=== PATIENT | male | born 1940 | race Caucasian/White ===

== ENCOUNTER 2020-04-17 15:52 | Inpatient (IN) | payer MEDICARE ==
--- NOTE | 2020-04-17 16:23 | ED ---
General Adult HPI - General Chief complaint: Eye Problems Stated complaint: vision problems Time Seen by Provider: 04/17/20 16:03 Source: patient, RN notes reviewed, old records reviewed Mode of arrival: ambulatory Limitations: physical limitation - History of Present Illness Initial comments: 79-year-old male presenting for evaluation of blurred vision, and difficulty finding words. He was seen by his eye doctor today in regards to the blurry vision and was sent to the emergency department for evaluation of suspected TIA. Patient had an episode which was 24 hours prior to evaluation today where he was unable to speak, he was unable to find words that he wanted to say. This lasted approximately one hour. He does complain of an occipital headache which is mild. He denies focal weakness or numbness. No facial droop noted. He states his vision has normalized at this point. He has history of hypertension and has been compliant with his medications. No antiplatelets, no anticoagulation. - Related Data Home Medications Medication Instructions Recorded Confirmed Metoprolol Succinate [Toprol XL] 25 mg PO DAILY 04/17/20 04/17/20 Plant Stanol Poornima [Cholest Off] 450 mg PO BID 04/17/20 04/17/20 Valsartan 80 mg PO HS 04/17/20 04/17/20 Valsartan [Diovan] 160 mg PO DAILY 04/17/20 04/17/20 amLODIPine [Norvasc] 10 mg PO DAILY 04/17/20 04/17/20 Allergies Allergy/AdvReac Type Severity Reaction Status Date / Time No Known Allergies Allergy Verified 04/17/20 18:20 Review of Systems ROS Statement: Those systems with pertinent positive or pertinent negative responses have been documented in the HPI. ROS Other: All systems not noted in ROS Statement are negative. Past Medical History Past Medical History: Coronary Artery Disease (CAD), Hyperlipidemia, Hypertension Additional Past Medical History / Comment(s): hearing problems History of Any Multi-Drug Resistant Organisms: None Reported Past Surgical History: Pacemaker Additional Past Surgical History / Comment(s): ear surgery Past Psychological History: No Psychological Hx Reported Smoking Status: Former smoker Past Alcohol Use History: None Reported Past Drug Use History: None Reported General Exam Limitations: physical limitation General appearance: alert, in no apparent distress Head exam: Present: atraumatic, normocephalic Eye exam: Present: normal appearance, PERRL ENT exam: Present: normal exam Neck exam: Present: normal inspection. Absent: tenderness, meningismus Respiratory exam: Present: normal lung sounds bilaterally. Absent: respiratory distress Cardiovascular Exam: Present: normal rhythm, bradycardia GI/Abdominal exam: Present: soft. Absent: distended, tenderness, guarding, rebound Extremities exam: Present: normal inspection, normal capillary refill. Absent: pedal edema Neurological exam: Present: alert, oriented X3, CN II-XII intact. Absent: motor sensory deficit Psychiatric exam: Present: normal affect, normal mood Skin exam: Present: warm, dry, intact. Absent: cyanosis, diaphoretic Course Vital Signs 04/17/20 04/17/20 15:54 18:00 Temperature 98.1 F Pulse Rate 52 L 62 Respiratory 20 16 Rate Blood Pressure 199/78 170/84 O2 Sat by Pulse 99 96 Oximetry Medical Decision Making - Medical Decision Making 79-year-old male presenting with an episode of blurry vision, and expressive aphasia. This occurred approximately 24 hours prior to arrival. Patient is not TPA candidate. He has an NIH is 0 at the time my evaluation. Head CT is performed which is negative for intracranial hemorrhage or mass effect. CT angiography is negative for acute occlusion, aneurysm or stenosis. Patient is g iven aspirin as he is not currently on any antiplatelet agent. He has normal CBC, normal CMP with exception of mild hypokalemia. I did discuss case with Dr. Amaya who will admit the patient. Neurology is placed on consult. - Lab Data Result diagrams: 04/17/20 16:28 04/17/20 16:28 Lab Results 04/17/20 04/17/20 04/17/20 Range/Units 16:28 16:28 16:28 WBC 8.5 (3.8-10.6) k/uL RBC 4.98 (4.30-5.90) m/uL Hgb 14.0 (13.0-17.5) gm/dL Hct 41.8 (39.0-53.0) % MCV 84.0 (80.0-100.0) fL MCH 28.2 (25.0-35.0) pg MCHC 33.5 (31.0-37.0) g/dL RDW 13.0 (11.5-15.5) % Plt Count 210 (150-450) k/uL Neutrophils % 57 % Lymphocytes % 33 % Monocytes % 5 % Eosinophils % 1 % Basophils % 1 % Neutrophils # 4.8 (1.3-7.7) k/uL Lymphocytes # 2.8 (1.0-4.8) k/uL Monocytes # 0.4 (0-1.0) k/uL Eosinophils # 0.1 (0-0.7) k/uL Basophils # 0.1 (0-0.2) k/uL PT 10.6 (9.0-12.0) sec INR 1.0 (<1.2) APTT 26.6 (22.0-30.0) sec Sodium 140 (137-145) mmol/L Potassium 3.3 L (3.5-5.1) mmol/L Chloride 103 (98-107) mmol/L Carbon Dioxide 28 (22-30) mmol/L Anion Gap 9 mmol/L BUN 16 (9-20) mg/dL Creatinine 0.93 (0.66-1.25) mg/dL Est GFR (CKD-EPI)AfAm 89 (>60 ml/min/1.73 sqM) Est GFR (CKD-EPI)NonAf 77 (>60 ml/min/1.73 sqM) Glucose 113 H (74-99) mg/dL Calcium 9.7 (8.4-10.2) mg/dL Total Bilirubin 0.7 (0.2-1.3) mg/dL AST 22 (17-59) U/L ALT 12 (4-49) U/L Alkaline Phosphatase 99 (38-126) U/L Troponin I (0.000-0.034) ng/mL Total Protein 7.0 (6.3-8.2) g/dL Albumin 4.3 (3.5-5.0) g/dL 04/17/20 Range/Units 16:28 WBC (3.8-10.6) k/uL RBC (4.30-5.90) m/uL Hgb (13.0-17.5) gm/dL Hct (39.0-53.0) % MCV (80.0-100.0) fL MCH (25.0-35.0) pg MCHC (31.0-37.0) g/dL RDW (11.5-15.5) % Plt Count (150-450) k/uL Neutrophils % % Lymphocytes % % Monocytes % % Eosinophils % % Basophils % % Neutrophils # (1.3-7.7) k/uL Lymphocytes # (1.0-4.8) k/uL Monocytes # (0-1.0) k/uL Eosinophils # (0-0.7) k/uL Basophils # (0-0.2) k/uL PT (9.0-12.0) sec INR (<1.2) APTT (22.0-30.0) sec Sodium (137-145) mmol/L Potassium (3.5-5.1) mmol/L Chloride (98-107) mmol/L Carbon Dioxide (22-30) mmol/L Anion Gap mmol/L BUN (9-20) mg/dL Creatinine (0.66-1.25) mg/dL Est GFR (CKD-EPI)AfAm (>60 ml/min/1.73 sqM) Est GFR (CKD-EPI)NonAf (>60 ml/min/1.73 sqM) Glucose (74-99) mg/dL Calcium (8.4-10.2) mg/dL Total Bilirubin (0.2-1.3) mg/dL AST (17-59) U/L ALT (4-49) U/L Alkaline Phosphatase (38-126) U/L Troponin I 0.016 (0.000-0.034) ng/mL Total Protein (6.3-8.2) g/dL Albumin (3.5-5.0) g/dL Critical Care Time Critical Care Time: Yes Total Critical Care Time: 35 Disposition Clinical Impression: TIA (transient ischemic attack) Disposition: ADMITTED IP TO THIS HOSP Condition: Stable Is patient prescribed a controlled substance at d/c from ED?: No Referrals: Rico Banks DO [Primary Care Provider] - 1-2 days Decision to Admit Reason: Admit from EC Decision Date: 04/17/20 Decision Time: 18:58
[2020-04-17 17:01] LABS: Basophils # (A) 0.1 k/uL (0-0.2); Basophils % (A) 1 %; Eosinophils # (A) 0.1 k/uL (0-0.7); Eosinophils % (A) 1 %; HCT 41.8 % (39.0-53.0); Lymphocytes # (A) 2.8 k/uL (1.0-4.8); Lymphocytes % (A) 33 %; MCH 28.2 pg (25.0-35.0); MCHC 33.5 g/dL (31.0-37.0); Mean Platelet Volume 8.6; Monocytes # (A) 0.4 k/uL (0-1.0); Monocytes % (A) 5 %; Neutrophils # (A) 4.8 k/uL (1.3-7.7); Neutrophils % (A) 57 %; Platelet Count 210 k/uL (150-450); RBC 4.98 m/uL (4.30-5.90); WBC 8.5 k/uL (3.8-10.6)
[2020-04-17 17:19] LABS: Partial Thromboplastin Time 26.6 sec (22.0-30.0); Prothrombin Time 10.6 sec (9.0-12.0)
[2020-04-17 17:23] LABS: Albumin 4.3 g/dL (3.5-5.0); Calcium 9.7 mg/dL (8.4-10.2); Potassium 3.3 mmol/L (3.5-5.1); Total Bilirubin 0.7 mg/dL (0.2-1.3)
--- NOTE | 2020-04-17 17:56 | CT ---
EXAMINATION: CT brain wo con DATE AND TIME: 04/17/2020 5:27 PM CLINICAL INDICATION: PHH; Neuro deficit, acute, stroke suspected TECHNIQUE: Standard departmental protocol.; DLP: 1063.8 mGycm COMPARISON: None. FINDINGS: The calvarium shows evidence of prior right temporal bone partial resection, with metallic scalp marie ce providing being hardening artifact. Calvarium negative for fracture. There is no intracranial hemorrhage. Bilateral parietal deep white matter fairly symmetric low-attenuation noted, entirely nonspecific. Th haven appear to be chronic, but chronicity cannot be confirmed without further characterization using M RI. There is no intracranial mass or mass effect. No definite new intra-axial or extra-axial attenuation defect. The paranasal sinuses, middle ear cavities, and mastoid sinus air cells are clear. The orbits are unremarkable. IMPRESSION: No definite acute CT process, with findings as discussed.
--- NOTE | 2020-04-17 18:28 | CT ---
EXAMINATION TYPE: CT angio head neck with contrast and with 3-D reconstruction renderings DATE OF EXAM: 04/17/2020 HISTORY: Headache. COMPARISON: Noncontrast CT 04/17/2020 at 5:[address] DLP: 552 mGycm. Automated Exposure Control for Dose Reduction was Utilized. TECHNIQUE: CTA scan of the neck is performed with IV Contrast, patient injected with 65 mL of Isovue 370, axial images are obtained, coronal and sagittal reformatted images are reviewed. Three-D recons tructed images are created on an independent workstation and reviewed. FINDINGS: CAROTID/VASCULAR STRUCTURES: Markedly prominent bilateral carotid tortuosity and scattered nonocclusi ve atherosclerotic narrowings present. No evidence of dissection. No hemodynamically significant sten oses. Mildly prominent bilateral vertebral artery tortuosity, with relatively mild generalized atherosclero tic changes. No evidence of dissection. No hemodynamically significant stenoses. INTRACRANIAL EXAMINATION: Mild scattered anterior and posterior circulation atherosclerotic changes. No filling defects. No hemodynamically significant stenoses. No cerebral aneurysm. Intra-axial and extra-axial contrast-enhancement pattern unremarkable. Other: 1.5 cm hypodense left thyroid nodule noted. IMPRESSION: 1. No acute CTA/CA process. 2. Incidental 1.5 cm left thyroid nodule.
[2020-04-17] MEDS ORDERED: ASPIRIN 325 MG TAB PO STA (18:30)
[2020-04-17] MEDS ORDERED: SODIUM CHLORIDE 0.9% 500 ML 500 ML IV ONE (18:30)
[2020-04-17] MEDS ORDERED: SODIUM CHLORIDE 0.9% 1,000 ML IV SCH (18:30)
--- NOTE | 2020-04-17 19:40 | XR ---
EXAMINATION: XR chest 2V DATE AND TIME: 04/17/2020 6:23 PM CLINICAL INDICATION: PHH; altered mental status TECHNIQUE: PA and lateral views COMPARISON: None FINDINGS: Cardiac pacemaker noted. The lungs are clear. The pleural spaces are negative. The cardiac silhouette is not enlarged. The remainder of the mediastinal silhouette is unremarkable. The skeletal structures and soft tissues are negative for acute findings. IMPRESSION: NO ACUTE PROCESS.
--- NOTE | 2020-04-17 21:45 | P.HPIM ---
History of Present Illness H&P Date: 04/17/20 Chief Complaint: Loss of speech and double vision History of presenting complaint: This is a pleasant 79-year-old patient of Dr. Rico Robb. Chronic stable medical conditions include hypertension, hyperlipidemia, hard of hearing, permanent pacemaker. Yesterday at 4 PM he was sitting in his backyard with his dog near the pond. There was squirrel running around. He suddenly noticed that he was not able to speak not describe a squirrel. His son happened to,,, white and then he found theword for him. Patient went inside the house He also noticed some double vision. The symptoms lasted for about 1-2 hours. Then completely resolved. 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 Was sent into the ER. Patient had no other focal symptoms. No change in , swallowing or any limb weakness. Blood pressure was running high in the ER. Review of systems: GEN.: None EYES: None HEENT: Decreased hearing NECK: None RESPIRATORY: None CARDIOVASCULAR: None GASTROINTESTINAL: None GENITOURINARY: None MUSCULOSKELETAL: None LYMPHATICS: None HEMATOLOGICAL: None PSYCHIATRY: None NEUROLOGICAL: As above] Past medical history to include: Hyperlipidemia, hypertension, hard of hearing, permanent pacemaker Social history: *Stopped Smoking over 40 years ago. No alcohol. . Retired. Family history: Reviewed, noncontributory to presentation Physical examination: VITAL SIGNS: 98.1, 52, 20, 199/78, 99% room air upon presentation GENERAL: BMI 25.8, laying in bed, comfortable. EYES: Pupils equal. Conjunctiva normal. HEENT: External appearance of nose and ears normal, oral cavity grossly normal. NECK: JVD not raised; masses not palpable. HEART: First and second heart sounds are normal; no edema. LUNGS: Respiratory rate normal; clear to auscultation. ABDOMEN: Soft, nontender, liver spleen not palpable, no masses palpable. PSYCH: Alert and oriented x3; mood and affect normal. NEUROLOGICAL: Cranial nerves grossly intact; no facial asymmetry, power and sensation grossly intact. LYMPHATICS: No lymph nodes palpable in the axilla and neck INVESTIGATIONS, reviewed in the clinical context: White count 8.5 hemoglobin 14 platelets 210 potassium 3.3 creatinine 0.93 EKG tracing personally reviewed by me-atrial paced rhythm, right bundle-branch block pattern Chest x-ray film personally reviewed by me-derek womack, no infiltrates CT angiogram the head and neck with contrast-no CTA/C a process Computed tomography scan of the brain unremarkable Assessment: -TIA with patient presenting with about 2 hours of unable to find words and some double vision yesterday that completely resolved. -Hypertensive urgency we'll follow blood pressure closely. -Hyperlipidemia -Permanent pacemaker -Hard of hearing Plan: We will repeat a computed tomography scan of the brain in the morning. Because of the pacemaker patient may not be ordered to have an MRI. Home medications to be resumed. Audio and aspirin. We'll add Plavix. Add Lipitor. Care was discussed with the patient question also. DVT prophylaxis. Past Medical History Past Medical History: Coronary Artery Disease (CAD), Hyperlipidemia, Hypertension Additional Past Medical History / Comment(s): hearing problems History of Any Multi-Drug Resistant Organisms: None Reported Past Surgical History: Pacemaker Additional Past Surgical History / Comment(s): ear surgery Past Anesthesia/Blood Transfusion Reactions: No Reported Reaction Type of Cardiac Device: Permanent Pacemaker Device Placement Date:: 2018 Past Psychological History: No Psychological Hx Reported Smoking Status: Former smoker Past Alcohol Use History: None Reported Past Drug Use History: None Reported Medications and Allergies Home Medications Medication Instructions Recorded Confirmed Type Metoprolol Succinate [Toprol XL] 25 mg PO DAILY 04/17/20 04/17/20 History Plant Stanol Opornima [Cholest Off] 450 mg PO BID 04/17/20 04/17/20 History Valsartan 80 mg PO HS 04/17/20 04/17/20 History Valsartan [Diovan] 160 mg PO DAILY 04/17/20 04/17/20 History amLODIPine [Norvasc] 10 mg PO DAILY 04/17/20 04/17/20 History Allergies Allergy/AdvReac Type Severity Reaction Status Date / Time No Known Allergies Allergy Verified 04/17/20 18:20 Physical Exam Vitals: Vital Signs Temp Pulse Pulse Resp BP BP Pulse Ox 04/17/20 21:00 97.9 F 63 18 205/86 95 04/17/20 20:56 97.9 F 63 18 205/86 95 04/17/20 20:27 98.3 F 52 L 16 170/87 98 04/17/20 19:50 50 L 16 174/87 04/17/20 19:34 50 L 16 183/82 97 04/17/20 19:11 97.9 F 63 18 205/86 97 04/17/20 18:00 62 16 170/84 96 04/17/20 15:54 98.1 F 52 L 20 199/78 99 Intake and Output 04/17/20 04/17/20 04/17/20 06:59 14:59 22:59 Output Total 900 Balance -900 Output: Urine 900 Other: Voiding Method Urinal # Voids 2 Weight 81.647 kg Results CBC & Chem 7: 04/17/20 16:28 04/17/20 16:28 Labs: Abnormal Lab Results - Last 24 Hours (Table) 04/17/20 Range/Units 16:28 Potassium 3.3 L (3.5-5.1) mmol/L Glucose 113 H (74-99) mg/dL Thrombosis Risk Factor Assmnt - Choose All That Apply Any of the Below Risk Factors Present?: No Other Risk Factors: Yes Each Risk Factor Represents 3 Points: Age 75 years or older Other congenital or acquired thrombophilia - If yes, enter type in comment: No Thrombosis Risk Factor Assessment Total Risk Factor Score: 3 Thrombosis Risk Factor Assessment Level: Moderate Risk
[2020-04-17] MEDS ORDERED: MAGNESIUM HYDROXIDE 2,400 MG/10 ML CUP PO PRN (21:47)
[2020-04-17] MEDS ORDERED: MAG HYDROX/AL HYDROX/SIMETH 30 ML CUP PO PRN (21:47)
[2020-04-17] MEDS ORDERED: MELATONIN 3 MG TABLET PO PRN (21:47)
[2020-04-17] MEDS ORDERED: TEMAZEPAM 15 MG CAP PO PRN (21:47)
[2020-04-17] MEDS ORDERED: ALPRAZolam 0.25 MG TAB PO PRN (21:47)
[2020-04-17] MEDS ORDERED: NALOXONE 0.4 MG/ML 1 ML VIAL IV PRN (21:47)
[2020-04-17] MEDS ORDERED: CALCIUM CARBONATE 500 MG CHEWABLE PO PRN (21:47)
[2020-04-17] MEDS ORDERED: ONDANSETRON 4 MG/2 ML VIAL IVP PRN (21:47)
[2020-04-17] MEDS ORDERED: LACTULOSE 20 GM/30 ML CUP PO PRN (21:47)
[2020-04-17] MEDS: ATORVASTATIN 40 MG TAB PO SCH (21:55)
[2020-04-17] MEDS: VALSARTAN 80 MG TAB PO SCH (21:56)
[2020-04-17] MEDS: ENOXAPARIN 40 MG/0.4 ML SYRINGE SQ SCH (21:56)
[2020-04-17] MEDS: PRAZOSIN 1 MG CAP PO SCH (22:05)
[2020-04-18 06:13] LABS: Cholesterol 221 mg/dL (<200); HDL Cholesterol 31 mg/dL (40-60); LDL Cholesterol,Calculated 145 mg/dL (0-99); Triglycerides 227 mg/dL (<150)
[2020-04-18] MEDS: ENOXAPARIN 40 MG/0.4 ML SYRINGE SQ SCH (08:44)
[2020-04-18] MEDS: PRAZOSIN 1 MG CAP PO SCH ×3 (08:44→22:51)
[2020-04-18] MEDS: amLODIPine 10 MG TAB PO SCH (08:44)
[2020-04-18] MEDS: VALSARTAN 80 MG TAB PO SCH ×2 (08:44→20:50)
[2020-04-18] MEDS: METOPROLOL SUCCINATE (ER) 25 MG TAB.ER.24H PO SCH (08:45)
[2020-04-18] MEDS: ASPIRIN 325 MG TAB PO SCH (08:45)
[2020-04-18] MEDS ORDERED: [UNRECOGNIZED DRUG - REMARK] PO SCH (09:00)
[2020-04-18 11:03] LABS: Glucose,Whole Blood 212 mg/dL (75-99)
--- NOTE | 2020-04-18 11:19 | CT ---
EXAMINATION TYPE: CT brain wo con DATE OF EXAM: 04/18/2020 COMPARISON: CT brain 04/17/2020 HISTORY: aphasia, confusion CT DLP: 1017.6 mGycm Automated exposure control for dose reduction was used. Helical imaging through the brain. FINDINGS: Cerebral vascular calcifications are present. Calvarium is stable, there is extrinsic metallic densit y with leads coursing towards the temporal bone, postop changes to the temporal bone as on prior exam . Cortical atrophy is again seen. Periventricular white matter shows patchy low attenuation. No hemor rhage or hydrocephalus. IMPRESSION: STABLE FINDINGS LIKELY REPRESENT CHRONIC SMALL VESSEL ISCHEMIC CHANGE, POSTOP CHANGE.
[2020-04-18] MEDS ORDERED: HEPARIN SODIUM,PORCINE 5,000 UNIT/ML 1 ML VIAL IV ONE (11:27)
[2020-04-18] MEDS ORDERED: HEPARIN SODIUM,PORCINE 5,000 UNIT/ML 1 ML VIAL IV PRN (11:27)
[2020-04-18 11:36] LABS: Basophils % (A) 0 %; Eosinophils % (A) 0 %; HGB 14.4 gm/dL (13.0-17.5); Lymphocytes # (A) 1.6 k/uL (1.0-4.8); Lymphocytes % (A) 22 %; MCH 29.4 pg (25.0-35.0); MCHC 35.1 g/dL (31.0-37.0); MCV 83.6 fL (80.0-100.0); Mean Platelet Volume 8.5; Monocytes # (A) 0.4 k/uL (0-1.0); Monocytes % (A) 6 %; Neutrophils # (A) 5.1 k/uL (1.3-7.7); Neutrophils % (A) 70 %; Platelet Count 189 k/uL (150-450); RDW 13.5 % (11.5-15.5); WBC 7.3 k/uL (3.8-10.6)
[2020-04-18 11:42] LABS: Potassium 3.3 mmol/L (3.5-5.1)
[2020-04-18 11:44] LABS: Calcium 9.4 mg/dL (8.4-10.2); Total Bilirubin 0.6 mg/dL (0.2-1.3); Total Protein 6.5 g/dL (6.3-8.2)
--- NOTE | 2020-04-18 11:56 | P.CNNES ---
History of Present Illness Consult date: 04/18/20 Requesting physician: Huseyin Sanchez Reason for Consult: TIA History of Present Illness: Patient is a 79-year-old male, who came to the hospital yesterday at around 4 PM for possible TIA. Patient had presented with blurred vision and difficulty finding words. Patient was seen by an eye doctor regarding blurred vision and was sent to the ER for evaluation of suspected TIA. Patient had an episode which was 24 hours prior to evaluation today, where he was unable to speak, he was unable to find words that he wanted to say. This lasted approximately 1 hour. He does complain of an occipital headache in the ER which was mild. He has no focal weakness or numbness. No facial droop. Patient had normalized. Patient has history of hypertension, compliant with medications. He does not take any antiplatelets or anticoagulants at home. Patient's vital signs on arrival was blood pressure 199/78, pulse rate 52, temperature 98.1 CT head showed no definite acute CT process. Bilateral parietal deep fight mat ter fairly symmetric low attenuation noted, entirely nonspecific. These appear to be chronic, but chronicity cannot be confirmed without further characterization using MRI. No mass effect. CTA of head and neck was negative. Incidental 1.5 cm left thyroid node he would. EKG shows atrial paced rhythm with prolonged AV conduction. Left axis deviation. Chest x-ray showed no acute process. CBC, PT/PTT, Chem-20 is normal. Total cholesterol 221, LDL 145, HDL 31 and triglycerides 227. Patient's NIH stroke scale was reported at 0. Patient was given aspirin in the ER. Patient was admitted to the 3 [address]. floor, room 332. According to nursing report, patient was perfectly fine overnight. Patient was normally communicative. Early this morning he was fine. At 10:15 AM, patient was noted to have acute mental status change, was completely disoriented, not able to answer questions. I came in to see the patient, and noticed patient had significant expressive aphasia. Patient able to name some objects, whereas not able to name other objects. Patient's NIH stroke scale was 6. Review of Systems Patient denies any headache. He is very hard of hearing. Denies any chest pain shortness of breath, wheezing or cough. Denies abdominal pain nausea vomiting. Patient had some blurred vision. Past Medical History Past Medical History: Coronary Artery Disease (CAD), Hyperlipidemia, Hypertension Additional Past Medical History / Comment(s): hearing problems History of Any Multi-Drug Resistant Organisms: None Reported Past Surgical History: Pacemaker Additional Past Surgical History / Comment(s): ear surgery Past Anesthesia/Blood Transfusion Reactions: No Reported Reaction Type of Cardiac Device: Permanent Pacemaker Device Placement Date:: 2018 Past Psychological History: No Psychological Hx Reported Smoking Status: Former smoker Past Alcohol Use History: None Reported Past Drug Use History: None Reported Medications and Allergies Home Medications Medication Instructions Recorded Confirmed Type Metoprolol Succinate [Toprol XL] 25 mg PO DAILY 04/17/20 04/17/20 History Plant Stanol Poornima [Cholest Off] 450 mg PO BID 04/17/20 04/17/20 History Valsartan 80 mg PO HS 04/17/20 04/17/20 History Valsartan [Diovan] 160 mg PO DAILY 04/17/20 04/17/20 History amLODIPine [Norvasc] 10 mg PO DAILY 04/17/20 04/17/20 History Allergies Allergy/AdvReac Type Severity Reaction Status Date / Time No Known Allergies Allergy Verified 04/17/20 18:20 Physical Examination - Vital Signs Vital Signs: Vital Signs Temp Pulse Pulse Resp BP BP Pulse Ox 04/18/20 09:12 97 04/18/20 08:20 97.8 F 62 16 142/75 98 04/18/20 05:54 97.5 F L 83 18 144/66 94 L 04/18/20 03:55 97.8 F 80 18 140/65 95 04/18/20 02:55 83 18 04/18/20 02:50 97.9 F 83 18 143/64 94 L 04/18/20 01:56 97.8 F 89 18 125/64 96 04/17/20 23:49 98.4 F 72 18 123/62 95 04/17/20 21:56 97.9 F 63 18 205/86 95 04/17/20 21:48 195/85 04/17/20 21:00 97.9 F 63 18 205/86 95 04/17/20 20:56 97.9 F 63 18 205/86 95 04/17/20 20:27 98.3 F 52 L 16 170/87 98 04/17/20 19:50 50 L 16 174/87 04/17/20 19:34 50 L 16 183/82 97 04/17/20 19:11 97.9 F 63 18 205/86 97 04/17/20 18:00 62 16 170/84 96 04/17/20 15:54 98.1 F 52 L 20 199/78 99 Intake and Output 04/17/20 04/18/20 04/18/20 22:59 06:59 14:59 Output Total 900 1200 Balance -900 -1200 Output: Urine 900 1200 Other: Voiding Method Urinal Urinal # Voids 2 1 Weight 81.647 kg On examination patient is an elderly male, in no acute cardiopulmonary distress. He is alert and awake. Patient was not able to answer questions, was having significant expressive aphasia, difficulty repeating. Patient was not able to name the thumb, ear or earlobe, eyeglasses, although able to name a wristwatch. He had difficulty repeating longer sentences. Patient has some paraphasic errors noted. Comprehension was affected. Mild slurring. On craft worker nial nerve examination pupils are round and reacting to light, visual crowder revealed homonymous right lower quadrantanopia. Face is symmetric, tongue protrudes the midline. Palatal elevation and sensation normal hearing significant decreased, shoulder shrug normal. On muscle strength testing there is no pronator drift and the strength is normal in arms and legs distally and proximally. Reflexes are 1+ and plantars downgoing. Sensory to touch difficult to assess for neglect, as patient was not understanding due to comprehension issue and also related to his hearing issue. No ataxia for [id number] testing. Tone and bulk of muscles normal gait was deferred. Patient was sent to computed tomography scan of the head. After he returned back from computed tomography scan, patient was able to speak clearly, expressive speech was much improved, able to speak sentences, can name, repeat. Patient able to answer appropriately. Patient only had residual homonymous right lower quadrantanopia Results - Laboratory Findings CBC and BMP: 04/18/20 11:14 04/18/20 11:14 Abnormal Lab Findings: Abnormal Labs 04/17/20 04/18/20 04/18/20 16:28 05:32 11:00 Potassium 3.3 L Glucose 113 H POC Glucose (mg/dL) 212 H Triglycerides 227 H Cholesterol 221 H LDL Cholesterol, Calc 145 H HDL Cholesterol 31 L Assessment and Plan Assessment: * Recurrent, crescendo TIAs. 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 * Patient has presented with acute to subacute CVA with right sided visual field deficits mainly involving the lower quadrant. Patient has developed superimposed recurrent TIAs. Rule out cardioembolic source. Patient had 2-D echo performed, results pending. * We will suggest a cardiology consultation, to consider KAY to rule out embolic source. * Because of recurrent TIAs,/recent CVA, we will start patient on heparin per A. fib protocol. 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 * Telemetry monitoring * PT OT speech therapy. * Continue aspirin 325 mg daily. * Hemoglobin A1c. * Neurology coverage not available on the weekend. Please perfect serve me if any questions over the weekend.
[2020-04-18 11:59] LABS: INR 1.1 (<1.2); Partial Thromboplastin Time 28.6 sec (22.0-30.0); Prothrombin Time 11.1 sec (9.0-12.0)
[2020-04-18] MEDS: HEPARIN SOD,PORK IN 0.45% NACL 25,000 UNIT in 0.45% NACL 1 250ML.BAG IV SCH (12:24)
--- NOTE | 2020-04-18 13:00 | ECHOF ---
Referral Reason:Thrombus MEASUREMENTS -------- HEIGHT: 177.8 cm WEIGHT: 81.6 kg BP: 144/66 RVIDd: 3.7 cm (< 3.3) IVSd: 2.0 cm (0.6 - 1.1) LVIDd: 3.5 cm (3.9 - 5.3) LVPWd: 1.6 cm (0.6 - 1.1) IVSs: 2.5 cm LVIDs: 2.6 cm LVPWs: 1.8 cm LAESV Index (A-L): 26.07 ml/m Ao Diam: 4.2 cm (2.0 - 3.7) AV Cusp: 1.8 cm (1.5 - 2.6) RAP: 5.00 mmHg RVSP: 16.57 mmHg FINDINGS -------- This was a technically adequate study. The left ventricular size is normal. There is severe concentric left ventricular hypertrophy. Ove rall left ventricular systolic function is low-normal with, an EF between 50 - 55 %. Septal wall mo tion is delayed, and consistent with ventricular pacing. The right ventricle is normal in size. Normal LA size by volume 22+/-6 ml/m2. The right atrial size is normal. Electronic pacemaker lead seen in the right atrial cavity. Interatrial and interventricular septum intact. There is no evidence of aortic regurgitation. There is no evidence of aortic stenosis. No mitral regurgitation. Mild tricuspid regurgitation present. There is no evidence of pulmonary hypertension. The right v entricular systolic pressure, as measured by Doppler, is 16.57mmHg. There is no pulmonic regurgitation present. The aortic root size is normal. IVC Not well visulized. There is no pericardial effusion. CONCLUSIONS -------- 1. Mild tricuspid regurgitation present. VISCOSITY INSPECTOR: Bibi Wheeler [facility]
--- NOTE | 2020-04-18 20:13 | P.PN ---
Progress Note - Text Progress Note Date: 04/18/20 Chief Complaint: Loss of speech and double vision History of presenting complaint: This is a pleasant 79-year-old patient of Dr. Rico Robb. Chronic stable medical conditions include hypertension, hyperlipidemia, hard of hearing, permanent pacemaker. Yesterday at 4 PM he was sitting in his backyard with his dog near the pond. There was squirrel running around. He suddenly noticed that he was not able to speak not describe a squirrel. His son happened to,,, white and then he found theword for him. Patient went inside the house He also noticed some double vision. The symptoms lasted for about 1-2 hours. Then completely resolved. 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 Was sent into the ER. Patient had no other focal symptoms. No change in , swallowing or any limb weakness. Blood pressure was running high in the ER. Today -earlier, patient again had trouble with speech. Was sent for repeat computed tomography scan after was called. Repeat computed tomography scan negative. Moved to the telemetry floor. He wanted by neurology. [place]. Homonymous right lower quadrant quadrantanopsia. Speech subsequently improved. Though some trouble finding words. Review of systems: Was done for constitutional, cardiovascular, GI, pulmonary. Neurology relevant finding as above Active Medications Acetaminophen (Acetaminophen Tab 325 Mg Tab) 650 mg PO Q6HR PRN PRN Reason: Mild Pain or Fever > 100.5 Al Hydroxide/Mg Hydroxide (Mag Hydrox/Al Hydrox/Simeth 30 Ml Cup) 15 ml PO Q6HR PRN PRN Reason: Indigestion Alprazolam (Alprazolam 0.25 Mg Tab) 0.25 mg PO Q6HR PRN PRN Reason: Anxiety Amlodipine Besylate (Amlodipine 10 Mg Tab) 10 mg PO DAILY [facility] Last Admin: 04/18/20 08:44 Dose: 10 mg Documented by: Aspirin (Aspirin 325 Mg Tab) 325 mg PO DAILY [facility] Last Admin: 04/18/20 08:45 Dose: 325 mg Documented by: Atorvastatin Calcium (Atorvastatin 40 Mg Tab) 40 mg PO HS [facility] Last Admin: 04/17/20 21:55 Dose: 40 mg Documented by: Calcium Carbonate/Glycine (Calcium Carbonate 500 Mg Chewable) 1,000 mg PO Q4HR PRN PRN Reason: Dyspepsia Heparin Sodium (Porcine) (Heparin Sodium,Porcine 5,000 Unit/Ml 1 Ml Vial) 0 unit IV PER PROTOCOL PRN; Protocol PRN Reason: Low PTT Heparin Sodium/Sodium Chloride (25,000 unit/ Sodium Chloride) 250 mls @ 9.798 mls/hr IV .Q24H [facility]; Protocol Last Admin: 04/18/20 12:24 Dose: 12 units/kg/hr, 9.798 mls/hr Documented by: Lactulose (Lactulose 20 Gm/30 Ml Cup) 20 gm PO DAILY PRN PRN Reason: Constipation Magnesium Hydroxide (Magnesium Hydroxide 2,400 Mg/10 Ml Cup) 2,400 mg PO DAILY PRN PRN Reason: Constipation Melatonin (Melatonin 3 Mg Tablet) 3 mg PO HS PRN PRN Reason: Insomnia Metoprolol Succinate (Metoprolol Succinate (Er) 25 Mg Tab.Er.24h) 25 mg PO DAILY [facility] Last Admin: 04/18/20 08:45 Dose: 25 mg Documented by: Naloxone HCl (Naloxone 0.4 Mg/Ml 1 Ml Vial) 0.2 mg IV Q2M PRN PRN Reason: Opioid Reversal Ondansetron HCl (Ondansetron 4 Mg/2 Ml Vial) 4 mg IVP Q8HR PRN PRN Reason: Nausea And Vomiting Prazosin HCl (Prazosin 1 Mg Cap) 2 mg PO TID [facility] Last Admin: 04/18/20 19:00 Dose: 2 mg Documented by: Temazepam (Temazepam 15 Mg Cap) 15 mg PO HS PRN PRN Reason: Insomnia Valsartan (Valsartan 80 Mg Tab) 160 mg PO DAILY [facility] Last Admin: 04/18/20 08:44 Dose: 160 mg Documented by: Valsartan (Valsartan 80 Mg Tab) 80 mg PO HS [facility] Last Admin: 04/17/20 21:56 Dose: 80 mg Documented by: Physical examination: VITAL SIGNS: 97.8, 62, 16, 142/75, 98% room air GENERAL: Sitting up in bed,, comfortable. EYES: Pupils equal. Conjunctiva normal. HEENT: External appearance of nose and ears normal, oral cavity grossly normal. NECK: JVD not raised; masses not palpable. HEART: First and second heart sounds are normal; no edema. LUNGS: Respiratory rate normal; clear to auscultation. ABDOMEN: Soft, nontender, liver spleen not palpable, no masses palpable. PSYCH: Alert and oriented x3; mood and affect normal. NEUROLOGICAL: Cranial nerves grossly intact; no facial asymmetry, a bit slow and finding words. INVESTIGATIONS, reviewed in the clinical context: Potassium 3.3, glucose 204, LDL 145 Computed tomography scan of brain-April 18-no new findings 2-D echocardiogram-severe concentric LVH, EF 50-55%, Admission testing White count 8.5 hemoglobin 14 platelets 210 potassium 3.3 creatinine 0.93 EKG tracing personally reviewed by me-atrial paced rhythm, right bundle-branch block pattern Chest x-ray film personally reviewed by me-derek womack, no infiltrates CT angiogram the head and neck with contrast-no CTA/C a process Computed tomography scan of the brain unremarkable Assessment: -Recurrent TIA with patient presenting with about 2 hours of unable to find words and some double vision yesterday that completely resolved. This morning again patient had similar symptoms. Per neurology patient also had home and it was right lower quadrantonopia -Hypertensive urgency we'll follow blood pressure closely. -Hyperlipidemia -Permanent pacemaker -Hard of hearing Plan: As per neurology proceed with KAY. Cardiology consult for the same. Patient started IV heparin per neurology. Discussed with the patient and .
[2020-04-18] MEDS: ATORVASTATIN 40 MG TAB PO SCH (20:50)
[2020-04-18] MEDS ORDERED: POTASSIUM CHLORIDE ER 20 MEQ TAB.ER PO STA (22:08)
[2020-04-19] MEDS ORDERED: HALOPERIDOL LACTATE 5 MG/ML 1 ML VIAL IM STA (01:07)
[2020-04-19 07:17] LABS: Basophils % (A) 0 %; Eosinophils % (A) 0 %; HCT 40.9 % (39.0-53.0); HGB 14.4 gm/dL (13.0-17.5); Lymphocytes % (A) 21 %; MCH 29.4 pg (25.0-35.0); MCHC 35.2 g/dL (31.0-37.0); MCV 83.5 fL (80.0-100.0); Mean Platelet Volume 8.8; Monocytes # (A) 0.5 k/uL (0-1.0); Monocytes % (A) 5 %; Neutrophils # (A) 6.8 k/uL (1.3-7.7); Neutrophils % (A) 72 %; Platelet Count 205 k/uL (150-450); RDW 13.5 % (11.5-15.5); WBC 9.4 k/uL (3.8-10.6)
[2020-04-19 07:26] LABS: Calcium 9.1 mg/dL (8.4-10.2); Potassium 3.3 mmol/L (3.5-5.1)
[2020-04-19] MEDS: amLODIPine 10 MG TAB PO SCH (08:29)
[2020-04-19] MEDS: METOPROLOL SUCCINATE (ER) 25 MG TAB.ER.24H PO SCH (08:30)
[2020-04-19] MEDS: ASPIRIN 325 MG TAB PO SCH (08:30)
[2020-04-19] MEDS: VALSARTAN 80 MG TAB PO SCH ×2 (08:32→22:29)
[2020-04-19] MEDS ORDERED: HALOPERIDOL LACTATE 5 MG/ML 1 ML VIAL ONE (08:42)
[2020-04-19] MEDS ORDERED: HALOPERIDOL LACTATE 5 MG/ML 1 ML VIAL IM PRN (08:45)
[2020-04-19] MEDS ORDERED: QUEtiapine 25 MG TAB PO SCH (10:15)
--- NOTE | 2020-04-19 11:44 | P.PN ---
Subjective This is a pleasant 79-year-old patient of Dr. Rico Robb. Chronic stable medical conditions include hypertension, hyperlipidemia, hard of hearing, permanent pacemaker. Yesterday at 4 PM he was sitting in his backyard with his dog near the pond. There was squirrel running around. He suddenly noticed that he was not able to speak not describe a squirrel. His son happened to,,, white and then he found theword for him. Patient went inside the house He also noticed some double vision. The symptoms lasted for about 1-2 hours. Then completely resolved. 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 Was sent into the ER. Patient had no other focal symptoms. No change in , swallowing or any limb weakness. Blood pressure was running high in the ER. Today -earlier, patient again had trouble with speech. Was sent for repeat computed tomography scan after was called. Repeat computed tomography scan negative. Moved to the telemetry floor. He wanted by neurology. [place]. Homonymous right lower quadrant quadrantanopsia. Speech subsequently improved. Though some trouble finding words. 04/19/2020 This is a pleasant 79 years old male presenting with double vision and slurred speech for about one to 2 hours, CT of the brain was suspicious for bilateral parietal CVA, with looks old per neurology service however need to rule out embolic source, echocardiogram is ordered and KAY is recommended by neurologist and cardiology team was consulted. Also patient was started on heparin drip per neurology service. Continue with aspirin 325 mg per neurologist. Echocardiogram showing ejection fraction 55% with septal wall motion is delayed consistent with ventricular pacing. this morning patient was agitated and he has to be given Haldol 2 mg IV with partial improvement. Seroquel is added and Xanax was stopped, he received 1 small dose of Xanax this morning which might contribute to his worsening confusion. Currently he is sitting on the bed side, common, no blurred vision or speech difficulty, he moves all extremities equally. This is slightly confused especially to place. The at bedside. Discussed plan of care with patient and and they're agreeable. CBC and BMP is unremarkable. Objective - Vital Signs Vital signs: Vital Signs Temp 98.9 F 04/19/20 08:00 Pulse 84 04/19/20 08:00 Resp 17 04/19/20 08:00 BP 144/67 04/19/20 08:00 Pulse Ox 98 04/19/20 08:00 Intake & Output 04/18/20 04/19/20 04/19/20 18:59 06:59 18:59 Intake Total 240 180 Balance 240 180 Weight 77 kg Intake: Oral 240 180 Other: Voiding Method Urinal Urinal # Voids 1 - Labs CBC & Chem 7: 04/19/20 06:49 04/19/20 06:49 Labs: Abnormal Lab Results - Last 24 Hours (Table) 04/18/20 04/18/20 04/19/20 Range/Units 11:14 18:13 06:49 APTT 53.3 H 39.1 H (22.0-30.0) sec Potassium 3.3 L (3.5-5.1) mmol/L Glucose 204 H (74-99) mg/dL 04/19/20 Range/Units 06:49 APTT (22.0-30.0) sec Potassium 3.3 L (3.5-5.1) mmol/L Glucose 144 H (74-99) mg/dL Assessment and Plan Assessment: -Acute/subacute suture of with superimposed Recurrent TIA . Per neurology patient also had home and it was right lower quadrantonopia -Hypertensive urgency we'll follow blood pressure closely. Blood pressure is better controlled with some permissive hypertension -agitation and encephalopathy, combined secondary to toxic effect from medication for example benzodiazepine as well as above illnesses -Hyperlipidemia -Permanent pacemaker -Hard of hearing
--- NOTE | 2020-04-19 13:51 | P.CRDCN ---
History of Present Illness Consult date: 04/19/20 Requesting physician: Ok Amaya Reason for Consult (text): KAY History of present illness: History of present illness: This is an 79-year-old male with past medical history of hypertension, hyperlipidemia, permanent pacemaker implantation, remote history of tobacco use. He presented to the hospital for possible TIA. CT head showed no definite acute CT process. CTA of head and neck was negative. EKG shows atrial paced rhythm with prolonged AV conduction. Left axis deviation. Chest x-ray showed no acute process. Total cholesterol 221, LDL 145, HDL 31 and triglycerides 227. Patient has been ruled in for recurrent, crescendo TIAs and neurology has requested KAY to rule out embolic source. Last evening, patient developed significant confusion and required Haldol. Patient is seen today in his room and is confused, shortly after interviewing patient, Mr. maria was called. Transthoracic echocardiogram reveals EF of 50-55% with severe concentric left ventricular hypertrophy, mild tricuspid regurgitation, no aortic stenosis, no pulmonary hypertension. Review Of Systems: Unable to obtain due to patient's mental status Physical examination: Gen: This is a an 79-year-old male. Patient is found ambulating in his room, confused. VS: Afebrile, heart rate 84, blood pressure 1 4467, pulse ox 98% on room air. HEENT: Head is atraumatic, normocephalic. Pupils equal, round. Sclerae is anict april. NECK: Supple. No JVD. No lymphadenopathy. No thyromegaly. LUNGS: Clear to auscultation. No wheezes or rhonchi. No intercostal retractions. HEART: Regular rate and rhythm. No murmur. ABDOMEN: Soft. Bowel sounds are present. No masses. No tenderness. EXTREMITIES: No pedal edema. No calf tenderness. NEUROLOGICAL: Patient is awake, alert and oriented x3. Cranial nerves 2 through 12 are grossly intact. Assessment: Recurrent, cresendo TIAs Hypertension Hyperlipidemia Permanent pacemaker implantation Plan: At this time, patient would not be able to cooperate for KAY May reassess patient's mental status tomorrow Further recommendations to follow based upon clinical course Thank you kindly for this consultation. Nurse practitioner note has been reviewed, I agree with documented findings and plan of care. Patient was seen and examined. Past Medical History Past Medical History: Coronary Artery Disease (CAD), Hyperlipidemia, Hypertension Additional Past Medical History / Comment(s): hearing problems History of Any Multi-Drug Resistant Organisms: None Reported Past Surgical History: Pacemaker Additional Past Surgical History / Comment(s): ear surgery Past Anesthesia/Blood Transfusion Reactions: No Reported Reaction Type of Cardiac Device: Permanent Pacemaker Device Placement Date:: 2018 Past Psychological History: No Psychological Hx Reported Smoking Status: Former smoker Past Alcohol Use History: None Reported Past Drug Use History: None Reported Medications and Allergies Home Medications Medication Instructions Recorded Confirmed Type Metoprolol Succinate [Toprol XL] 25 mg PO DAILY 04/17/20 04/17/20 History Plant Stanol Poornima [Cholest Off] 450 mg PO BID 04/17/20 04/17/20 History Valsartan 80 mg PO HS 04/17/20 04/17/20 History Valsartan [Diovan] 160 mg PO DAILY 04/17/20 04/17/20 History amLODIPine [Norvasc] 10 mg PO DAILY 04/17/20 04/17/20 History Allergies Allergy/AdvReac Type Severity Reaction Status Date / Time No Known Allergies Allergy Verified 04/17/20 18:20 Physical Exam Vitals: Vital Signs Temp Pulse Resp BP Pulse Ox 04/19/20 04:00 86 18 156/70 95 04/19/20 00:00 98.8 F 79 16 124/70 94 L 04/18/20 20:00 98.9 F 76 18 158/74 94 L 04/18/20 16:00 98.5 F 64 18 185/78 96 04/18/20 09:12 97 04/18/20 08:20 97.8 F 62 16 142/75 98 Intake and Output 04/18/20 04/19/20 04/19/20 22:59 06:59 14:59 Other: Voiding Method Urinal Urinal # Voids 1 Weight 77 kg Results 04/19/20 06:49 04/19/20 06:49 Cardiac Enzymes 04/18/20 04/18/20 Range/Units 11:14 11:14 AST 21 (17-59) U/L Troponin I 0.019 (0.000-0.034) ng/mL Coagulation 04/18/20 04/18/20 04/19/20 Range/Units 11:14 18:13 06:49 PT 11.1 (9.0-12.0) sec APTT 28.6 53.3 H 39.1 H (22.0-30.0) sec CBC 04/18/20 04/19/20 Range/Units 11:14 06:49 WBC 7.3 9.4 (3.8-10.6) k/uL RBC 4.90 4.90 (4.30-5.90) m/uL Hgb 14.4 14.4 (13.0-17.5) gm/dL Hct 41.0 40.9 (39.0-53.0) % Plt Count 189 205 (150-450) k/uL Comprehensive Metabolic Panel 04/18/20 04/19/20 Range/Units 11:14 06:49 Sodium 139 140 (137-145) mmol/L Potassium 3.3 L 3.3 L (3.5-5.1) mmol/L Chloride 103 107 (98-107) mmol/L Carbon Dioxide 27 27 (22-30) mmol/L BUN 13 16 (9-20) mg/dL Creatinine 0.99 0.94 (0.66-1.25) mg/dL Glucose 204 H 144 H (74-99) mg/dL Calcium 9.4 9.1 (8.4-10.2) mg/dL AST 21 (17-59) U/L ALT 12 (4-49) U/L Alkaline Phosphatase 93 (38-126) U/L Total Protein 6.5 (6.3-8.2) g/dL Albumin 4.0 (3.5-5.0) g/dL Current Medications Generic Name Dose Route Start Last Admin Trade Name Freq PRN Reason Stop Dose Admin Acetaminophen 650 mg 04/17/20 21:47 Acetaminophen Tab 325 Mg Tab PO Q6HR PRN Mild Pain or Fever > 100.5 Al Hydroxide/Mg Hydroxide 15 ml 04/17/20 21:47 Mag Hydrox/Al Hydrox/Simeth 30 Ml Cup PO Q6HR PRN Indigestion Alprazolam 0.25 mg 04/17/20 21:47 Alprazolam 0.25 Mg Tab PO Q6HR PRN Anxiety Amlodipine Besylate 10 mg 04/18/20 09:00 04/18/20 08:44 Amlodipine 10 Mg Tab PO 10 mg DAILY [facility] Administration Aspirin 325 mg 04/18/20 09:00 04/18/20 08:45 Aspirin 325 Mg Tab PO 325 mg DAILY [facility] Administration Atorvastatin Calcium 40 mg 04/17/20 21:45 04/18/20 20:50 Atorvastatin 40 Mg Tab PO 40 mg HS [facility] Administration Calcium Carbonate/Glycine 1,000 mg 04/17/20 21:47 Calcium Carbonate 500 Mg Chewable PO Q4HR PRN Dyspepsia Heparin Sodium (Porcine) 0 unit 04/18/20 11:27 Heparin Sodium,Porcine 5,000 Unit/Ml 1 Ml Vial IV PER PROTOCOL PRN Low PTT Protocol Heparin Sodium/Sodium Chloride 250 mls @ 9.798 mls/hr 04/18/20 11:30 04/18/20 12:24 25,000 unit/ Sodium Chloride IV 12 units/kg/hr .Q24H [facility] 9.798 mls/hr Administration Protocol 12 UNITS/KG/HR Lactulose 20 gm 04/17/20 21:47 Lactulose 20 Gm/30 Ml Cup PO DAILY PRN Constipation Magnesium Hydroxide 2,400 mg 04/17/20 21:47 Magnesium Hydroxide 2,400 Mg/10 Ml Cup PO DAILY PRN Constipation Melatonin 3 mg 04/17/20 21:47 Melatonin 3 Mg Tablet PO HS PRN Insomnia Metoprolol Succinate 25 mg 04/18/20 09:00 04/18/20 08:45 Metoprolol Succinate (Er) 25 Mg Tab.Er.24h PO 25 mg DAILY [facility] Administration Naloxone HCl 0.2 mg 04/17/20 21:47 Naloxone 0.4 Mg/Ml 1 Ml Vial IV Q2M PRN Opioid Reversal Ondansetron HCl 4 mg 04/17/20 21:47 Ondansetron 4 Mg/2 Ml Vial IVP Q8HR PRN Nausea And Vomiting Prazosin HCl 2 mg 04/17/20 22:00 04/18/20 22:51 Prazosin 1 Mg Cap PO 2 mg TID [facility] Administration Temazepam 15 mg 04/17/20 21:47 Temazepam 15 Mg Cap PO HS PRN Insomnia Valsartan 160 mg 04/18/20 09:00 04/18/20 08:44 Valsartan 80 Mg Tab PO 160 mg DAILY [facility] Administration Valsartan 80 mg 04/17/20 21:30 04/18/20 20:50 Valsartan 80 Mg Tab PO 80 mg HS [facility] Administration Intake and Output 04/18/20 04/19/20 04/19/20 22:59 06:59 14:59 Other: Voiding Method Urinal Urinal # Voids 1 Weight 77 kg 04/19/20 06:49 04/19/20 06:49
[2020-04-19] MEDS: POTASSIUM CHLORIDE ER 20 MEQ TAB.ER PO SCH ×2 (13:56→15:00)
[2020-04-19] MEDS: QUEtiapine 25 MG TAB PO PRN ×2 (13:56→22:28)
[2020-04-19] MEDS: PRAZOSIN 1 MG CAP PO SCH ×3 (14:06→22:27)
[2020-04-19] MEDS: HEPARIN SOD,PORK IN 0.45% NACL 25,000 UNIT in 0.45% NACL 1 250ML.BAG IV SCH (14:06)
[2020-04-19] MEDS: ACETAMINOPHEN TAB 325 MG TAB PO PRN (15:24)
[2020-04-19] MEDS: ATORVASTATIN 40 MG TAB PO SCH (22:27)
[2020-04-20] MEDS: HEPARIN SOD,PORK IN 0.45% NACL 25,000 UNIT in 0.45% NACL 1 250ML.BAG IV SCH ×2 (03:45→20:25)
[2020-04-20] MEDS: ASPIRIN 325 MG TAB PO SCH (08:25)
[2020-04-20] MEDS: METOPROLOL SUCCINATE (ER) 25 MG TAB.ER.24H PO SCH (08:25)
[2020-04-20] MEDS: amLODIPine 10 MG TAB PO SCH (08:25)
[2020-04-20] MEDS: PRAZOSIN 1 MG CAP PO SCH ×3 (08:26→20:24)
[2020-04-20] MEDS: VALSARTAN 80 MG TAB PO SCH ×2 (08:27→20:24)
[2020-04-20] MEDS ORDERED: QUEtiapine 25 MG TAB PO SCH (09:00)
[2020-04-20 09:52] LABS: Basophils # (A) 0.1 k/uL (0-0.2); Basophils % (A) 1 %; Eosinophils # (A) 0.1 k/uL (0-0.7); Eosinophils % (A) 1 %; HCT 41.6 % (39.0-53.0); HGB 13.7 gm/dL (13.0-17.5); Lymphocytes % (A) 27 %; MCH 28.1 pg (25.0-35.0); MCHC 32.9 g/dL (31.0-37.0); MCV 85.4 fL (80.0-100.0); Mean Platelet Volume 9.2; Monocytes # (A) 0.3 k/uL (0-1.0); Monocytes % (A) 4 %; Neutrophils % (A) 65 %; Platelet Count 171 k/uL (150-450); RBC 4.87 m/uL (4.30-5.90); RDW 13.4 % (11.5-15.5); WBC 7.6 k/uL (3.8-10.6)
[2020-04-20 10:09] LABS: Calcium 9.5 mg/dL (8.4-10.2); Magnesium 1.9 mg/dL (1.6-2.3); Potassium 3.5 mmol/L (3.5-5.1)
--- NOTE | 2020-04-20 12:30 | P.PN ---
Subjective Progress Note Date: 04/20/20 History of present illness: This is an 79-year-old male with past medical history of hypertension, hyperlipidemia, permanent pacemaker implantation, remote history of tobacco use. He presented to the hospital for possible TIA. CT head showed no definite acute CT process. CTA of head and neck was negative. EKG shows atrial paced rhythm with prolonged AV conduction. Left axis deviation. Chest x-ray showed no acute process. Total cholesterol 221, LDL 145, HDL 31 and triglycerides 227. Patient has been ruled in for recurrent, crescendo TIAs and neurology has requested KAY to rule out embolic source. Last evening, patient developed significant confusion and required Haldol. Patient is seen today in his room and is confused, shortly after interviewing patient, Mr. maria was called. Transthoracic echocardiogram reveals EF of 50-55% with severe concentric left ventricular hypertrophy, mild tricuspid regurgitation, no aortic stenosis, no pulmonary hypertension. 04/20: Patient is seen today in recheck. He continues to have confusion but is very calm today. He is resting in bed. He will not answer any of my questions. Patient's is at the bedside and is concerned about KAY. We'll plan to schedule the patient for KAY tomorrow. Patient is currently on a heparin drip. Review Of Systems: Unable to obtain due to patient's mental status Physical examination: Gen: This is a an 79-year-old male. Patient is found ambulating in his room, confused. VS: Afebrile, heart rate 84, blood pressure 1 4467, pulse ox 98% on room air. HEENT: Head is atraumatic, normocephalic. Pupils equal, round. Sclerae is anicteric. NECK: Supple. No JVD. No lymphadenopathy. No thyromegaly. LUNGS: Clear to auscultation. No wheezes or rhonchi. No intercostal retractions. HEART: Regular rate and rhythm. No murmur. ABDOMEN: Soft. Bowel sounds are present. No masses. No tenderness. EXTREMITIES: No pedal edema. No calf tenderness. NEUROLOGICAL: Patient is awake, alert and oriented x3. Cranial nerves 2 through 12 are grossly intact. Assessment: Recurrent, cresendo TIAs Hypertension Hyperlipidemia Permanent pacemaker implantation Plan: KAY scheduled for Tuesday with Dr. Avila Further recommendations to follow based upon KAY findings. Nurse practitioner note has been reviewed, I agree with documented findings and plan of care. Patient was seen and examined. Objective - Vital Signs Vital signs: Vital Signs Temp 97.4 F L 04/20/20 11:38 Pulse 65 04/20/20 11:38 Resp 15 04/20/20 11:38 BP 147/68 04/20/20 11:38 Pulse Ox 96 04/20/20 11:38 Intake & Output 04/19/20 04/20/20 04/20/20 18:59 06:59 18:59 Intake Total 710 186.743 281.397 Output Total 600 550 Balance 110 186.743 -268.603 Weight 83.5 kg Intake: Intake, IV Titration 50 186.743 45.397 Amount Heparin Sod,Pork in 0.45% 50 186.743 45.397 NaCl 25,000 unit In 0.45 % NaCl 1 250ml.bag @ 12 UNITS/KG/HR 9.798 mls/hr IV .Q24H COUNT INCLUDES THE [facility] Rx#: [id number] Oral 660 236 Output: Urine 600 550 Other: Voiding Method Urinal Urinal Urinal # Voids 3 1 1 - Labs CBC & Chem 7: 04/20/20 09:07 04/20/20 09:07 Labs: Abnormal Lab Results - Last 24 Hours (Table) 04/20/20 04/20/20 Range/Units 09:07 09:07 APTT 41.0 H (22.0-30.0) sec Glucose 217 H (74-99) mg/dL
--- NOTE | 2020-04-20 13:30 | P.PN ---
Subjective This is a pleasant 79-year-old patient of Dr. Rico Robb. Chronic stable medical conditions include hypertension, hyperlipidemia, hard of hearing, permanent pacemaker. Yesterday at 4 PM he was sitting in his backyard with his dog near the pond. There was squirrel running around. He suddenly noticed that he was not able to speak not describe a squirrel. His son happened to,,, white and then he found theword for him. Patient went inside the house He also noticed some double vision. The symptoms lasted for about 1-2 hours. Then completely resolved. 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 Was sent into the ER. Patient had no other focal symptoms. No change in , swallowing or any limb weakness. Blood pressure was running high in the ER. Today -earlier, patient again had trouble with speech. Was sent for repeat computed tomography scan after was called. Repeat computed tomography scan negative. Moved to the telemetry floor. He wanted by neurology. [place]. Homonymous right lower quadrant quadrantanopsia. Speech subsequently improved. Though some trouble finding words. 04/19/2020 This is a pleasant 79 years old male presenting with double vision and slurred speech for about one to 2 hours, CT of the brain was suspicious for bilateral parietal CVA, with looks old per neurology service however need to rule out embolic source, echocardiogram is ordered and KAY is recommended by neurologist and cardiology team was consulted. Also patient was started on heparin drip per neurology service. Continue with aspirin 325 mg per neurologist. Echocardiogram showing ejection fraction 55% with septal wall motion is delayed consistent with ventricular pacing. this morning patient was agitated and he has to be given Haldol 2 mg IV with partial improvement. Seroquel is added and Xanax was stopped, he received 1 small dose of Xanax this morning which might contribute to his worsening confusion. Currently he is sitting on the bed side, common, no blurred vision or speech difficulty, he moves all extremities equally. This is slightly confused especially to place. The at bedside. Discussed plan of care with patient and and they're agreeable. CBC and BMP is unremarkable. 04/20/2020 Yesterday patient was educated so cardiology consult to discuss KAY with him, also overnight he wanted to follow-up his IV for heparin drip, received Seroquel and this morning his more calm and cooperative. However he still confused, he knows he is in the hospital, but she could not name the hospital, he was disoriented to time or person. His disoriented towards his diagnosis. Cardiology team are on the case and they did not recommend KAY for him given his adverse mental status. Currently remain on heparin drip. Follow-up follow-up with the neurologist tomorrow for further recommendation. Today patient denies double vision, no slurred speech, no weakness or numbness, no headache. Objective - Vital Signs Vital signs: Vital Signs Temp 97.4 F L 04/20/20 11:38 Pulse 65 04/20/20 11:38 Resp 15 04/20/20 11:38 BP 147/68 04/20/20 11:38 Pulse Ox 96 04/20/20 11:38 Intake & Output 04/19/20 04/20/20 04/20/20 18:59 06:59 18:59 Intake Total 710 186.743 281.397 Output Total 600 550 Balance 110 186.743 -268.603 Weight 83.5 kg Intake: Intake, IV Titration 50 186.743 45.397 Amount Heparin Sod,Pork in 0.45% 50 186.743 45.397 NaCl 25,000 unit In 0.45 % NaCl 1 250ml.bag @ 12 UNITS/KG/HR 9.798 mls/hr IV .Q24H [facility] Rx#: [id number] Oral 660 236 Output: Urine 600 550 Other: Voiding Method Urinal Urinal Urinal # Voids 3 1 1 - Exam GENERAL: The patient is alert and oriented x0-1, not in any acute distress. Well developed, well nourished. Looks calm HEENT: Pupils are round and equally reacting to light. EOMI. No scleral icterus. No conjunctival pallor. Normocephalic, atraumatic. No pharyngeal erythema. No thyromegaly. CARDIOVASCULAR: S1 and S2 present. No murmurs, rubs, or gallops. PULMONARY: Chest is clear to auscultation, no wheezing or crackles. ABDOMEN: Soft, nontender, nondistended, normoactive bowel sounds. No palpable organomegaly. MUSCULOSKELETAL: No joint swelling or deformity. EXTREMITIES: No cyanosis, clubbing, or pedal edema. NEUROLOGICAL: Gross neurological examination did not reveal any focal deficits. SKIN: No rashes. no petechiae. - Labs CBC & Chem 7: 04/20/20 09:07 04/20/20 09:07 Labs: Abnormal Lab Results - Last 24 Hours (Table) 04/20/20 04/20/20 Range/Units 09: 09:07 APTT 41.0 H (22.0-30.0) sec Glucose 217 H (74-99) mg/dL Assessment and Plan Assessment: -Acute/subacute suture of with superimposed Recurrent TIA . Per neurology patient also had home and it was right lower quadrantonopia -Hypertensive urgency we'll follow blood pressure closely. Blood pressure is b becky controlled with some permissive hypertension -agitation and encephalopathy, improved -Possible elements of dementia -Hyperlipidemia -Permanent pacemaker -Hard of hearing
[2020-04-20] MEDS: ACETAMINOPHEN TAB 325 MG TAB PO PRN (13:58)
[2020-04-20] MEDS ORDERED: POTASSIUM CHLORIDE ER 20 MEQ TAB.ER PO STA (19:30)
[2020-04-20] MEDS ORDERED: MAGNESIUM SULFATE-D5W PMX 1 GM in DEXTROSE/WATER 1 100ML.BAG IVPB ONE (19:30)
[2020-04-20] MEDS: ATORVASTATIN 40 MG TAB PO SCH (20:23)
[2020-04-20] MEDS: QUEtiapine 25 MG TAB PO PRN (20:24)
[2020-04-20] MEDS: HALOPERIDOL LACTATE 5 MG/ML 1 ML VIAL IVP PRN (23:46)
[2020-04-21 08:05] LABS: Basophils # (A) 0.1 k/uL (0-0.2); Basophils % (A) 0 %; Eosinophils # (A) 0.1 k/uL (0-0.7); Eosinophils % (A) 1 %; HCT 45.9 % (39.0-53.0); HGB 15.3 gm/dL (13.0-17.5); Lymphocytes # (A) 2.4 k/uL (1.0-4.8); Lymphocytes % (A) 22 %; MCH 28.3 pg (25.0-35.0); MCHC 33.4 g/dL (31.0-37.0); MCV 84.6 fL (80.0-100.0); Mean Platelet Volume 8.9; Monocytes # (A) 0.6 k/uL (0-1.0); Monocytes % (A) 6 %; Neutrophils # (A) 7.8 k/uL (1.3-7.7); Neutrophils % (A) 70 %; Platelet Count 217 k/uL (150-450); RBC 5.42 m/uL (4.30-5.90); RDW 13.2 % (11.5-15.5); WBC 11.3 k/uL (3.8-10.6)
--- NOTE | 2020-04-21 08:42 | P.PN ---
Subjective This is a pleasant 79-year-old patient of Dr. Rico Robb. Chronic stable medical conditions include hypertension, hyperlipidemia, hard of hearing, permanent pacemaker. Yesterday at 4 PM he was sitting in his backyard with his dog near the pond. There was squirrel running around. He suddenly noticed that he was not able to speak not describe a squirrel. His son happened to,,, white and then he found theword for him. Patient went inside the house He also noticed some double vision. The symptoms lasted for about 1-2 hours. Then completely resolved. 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 Was sent into the ER. Patient had no other focal symptoms. No change in , swallowing or any limb weakness. Blood pressure was running high in the ER. Today -earlier, patient again had trouble with speech. Was sent for repeat computed tomography scan after was called. Repeat computed tomography scan negative. Moved to the telemetry floor. He wanted by neurology. [place]. Homonymous right lower quadrant quadrantanopsia. Speech subsequently improved. Though some trouble finding words. 04/19/2020 This is a pleasant 79 years old male presenting with double vision and slurred speech for about one to 2 hours, CT of the brain was suspicious for bilateral parietal CVA, with looks old per neurology service however need to rule out embolic source, echocardiogram is ordered and KAY is recommended by neurologist and cardiology team was consulted. Also patient was started on heparin drip per neurology service. Continue with aspirin 325 mg per neurologist. Echocardiogram showing ejection fraction 55% with septal wall motion is delayed consistent with ventricular pacing. this morning patient was agitated and he has to be given Haldol 2 mg IV with partial improvement. Seroquel is added and Xanax was stopped, he received 1 small dose of Xanax this morning which might contribute to his worsening confusion. Currently he is sitting on the bed side, common, no blurred vision or speech difficulty, he moves all extremities equally. This is slightly confused especially to place. The at bedside. Discussed plan of care with patient and and they're agreeable. CBC and BMP is unremarkable. 04/20/2020 Yesterday patient was educated so cardiology consult to discuss KAY with him, also overnight he wanted to follow-up his IV for heparin drip, received Seroquel and this morning his more calm and cooperative. However he still confused, he knows he is in the hospital, but she could not name the hospital, he was disoriented to time or person. His disoriented towards his diagnosis. Cardiology team are on the case and they did not recommend KAY for him given his adverse mental status. Currently remain on heparin drip. Follow-up follow-up with the neurologist tomorrow for further recommendation. Today patient denies double vision, no slurred speech, no weakness or numbness, no headache. 04/21/2020 Patient is more confused today, he needed Haldol last night, today he was mumbling with sounds, does not follow commands, agitated, trying to take his clothes off. Cardiology they don't think he is eligible for a KAY, her metastases on heparin drip per nephrology team, we will touch base with the neurology service about the assisted he has leukocytosis of 11.3 came today, no fever.Increased Seroquel and check urine analysis. CT of the brain was negative recently Objective - Vital Signs Vital signs: Vital Signs Temp 98.8 F 04/20/20 20:00 Pulse 75 04/21/20 03:17 Resp 20 04/21/20 03:17 BP 139/66 04/21/20 03:17 Pulse Ox 95 04/21/20 03:17 Intake & Output 04/20/20 04/21/20 04/21/20 18:59 06:59 18:59 Intake Total 753.397 477.553 Output Total 550 850 Balance 203.397 -372.447 Weight 79 kg Intake: Intake, IV Titration 45.397 237.553 Amount Heparin Sod,Pork in 0.45% 45.397 137.553 NaCl 25,000 unit In 0.45 % NaCl 1 250ml.bag @ 12 UNITS/KG/HR 9.798 mls/hr IV .Q24H [facility] Rx#: [id number] Magnesium Sulfate-D5w Pmx 100 1 gm In Dextrose/Water 1 100ml.bag @ 100 mls/hr IVPB ONCE ONE Rx#: [id number] Oral 708 240 Output: Urine 550 850 Other: Voiding Method Urinal Urinal # Voids 2 1 - Exam -GENERAL: The patient is confused and agitated HEENT: Pupils are round and equally reacting to light. EOMI. No scleral icterus. No conjunctival pallor. Normocephalic, atraumatic. No pharyngeal erythema. No thyromegaly. CARDIOVASCULAR: S1 and S2 present. No murmurs, rubs, or gallops. PULMONARY: Chest is clear to auscultation, no wheezing or crackles. ABDOMEN: Soft, nontender, nondistended, normoactive bowel sounds. No palpable organomegaly. MUSCULOSKELETAL: No joint swelling or deformity. EXTREMITIES: No cyanosis, clubbing, or pedal edema. NEUROLOGICAL: Gross neurological examination did not reveal any focal deficits. SKIN: No rashes. no petechiae. - Labs CBC & Chem 7: 04/21/20 07:40 04/20/20 09:07 Labs: Abnormal Lab Results - Last 24 Hours (Table) 04/20/20 04/20/20 04/20/20 Range/Units 09:07 09:07 14:24 WBC (3.8-10.6) k/uL Neutrophils # (1.3-7.7) k/uL APTT 41.0 H 48.3 H (22.0-30.0) sec Glucose 217 H (74-99) mg/dL 04/21/20 04/21/20 Range/Units 07:40 07:40 WBC 11.3 H (3.8-10.6) k/uL Neutrophils # 7.8 H (1.3-7.7) k/uL APTT 53.1 H (22.0-30.0) sec Glucose (74-99) mg/dL Assessment and Plan Assessment: -Acute/subacute suture of with superimposed Recurrent TIA . Per neurology patient also had home and it was right lower quadrantonopia. Cardiology recommended no KAY, follow-up with neurologist for further recommendation as his continue on heparin drip for now. -Hypertensive urgency we'll follow blood pressure closely. Blood pressure is better controlled -agitation and metabolic encephalopathy: Continue with Seroquel, check urinalysis -Possible elements of dementia -Hyperlipidemia -Permanent pacemaker -Hard of hearing
[2020-04-21] MEDS: HALOPERIDOL LACTATE 5 MG/ML 1 ML VIAL IVP PRN (10:37)
[2020-04-21] MEDS ORDERED: HALOPERIDOL LACTATE 5 MG/ML 1 ML VIAL IVP ONE (13:45)
[2020-04-21] MEDS: LORazepam 2 MG/ML INJ IV STA ×2 (14:05→14:20)
[2020-04-21] MEDS ORDERED: LORazepam 2 MG/ML INJ ONE (14:06)
[2020-04-21] MEDS: ASPIRIN 325 MG TAB PO SCH (14:21)
[2020-04-21] MEDS: amLODIPine 10 MG TAB PO SCH (14:21)
[2020-04-21] MEDS: METOPROLOL SUCCINATE (ER) 25 MG TAB.ER.24H PO SCH (14:21)
[2020-04-21] MEDS: PRAZOSIN 1 MG CAP PO SCH ×3 (14:22→23:33)
[2020-04-21] MEDS: QUEtiapine 50 MG TAB PO SCH (14:22)
[2020-04-21] MEDS: VALSARTAN 80 MG TAB PO SCH (14:22)
--- NOTE | 2020-04-21 15:51 | CT ---
EXAMINATION TYPE: CT brain wo con DATE OF EXAM: 04/21/2020 HISTORY: Mental status changes. CT DLP: 1173.4 mGycm. Automated Exposure Control for Dose Reduction was Utilized. TECHNIQUE: CT scan of the head is performed without contrast. COMPARISON: CT brain 3 days ago. FINDINGS: There is no acute intracranial hemorrhage or midline shift identified. There is diffuse v entricular and sulcal prominence consistent with diffuse age-related cerebral atrophy. There is low- attenuation in the periventricular white matter consistent with chronic small vessel ischemic change. More focal encephalomalacia high right parietal region axial image 48 redemonstrated. Persistent rig ht-sided temporal or mastoid surgical change with external device having lead into the petrous apex, streak artifact noted makes evaluation slightly suboptimal similar to prior studies IMPRESSION: No acute intracranial hemorrhage or midline shift. There is mild to moderate diffuse ce rebral atrophy and moderate to advanced chronic small vessel ischemic change along with right-sided s urgical change all redemonstrated. No significant change from prior studies.
--- NOTE | 2020-04-21 16:20 | P.PN ---
Subjective Progress Note Date: 04/21/20 The patient's nurse she stated that the patient was doing well today was response to some questions but later that his mentation was off and he was aggressive. Patient received Haldol 1 mg around 1345 but that didn't help so he received the 0.5 mg of Ativan around 14:04. Because of his worsening mentation the primary team ordered CT of the head which was reported as no acute intracranial hemorrhage or midline shift. There is mild to moderate diffuse cerebral atrophy and moderate to advanced chronic small vessel ischemic change along the right side surgical change old and demonstrated. No change from prior studies. Should last PTT is 53.1 and that was on 04/21/2020 at 7:40 AM. Upon seeing the patient he was sleepy and snoring. The patient was at bedside. Objective - Vital Signs Vital signs: Vital Signs Temp 98.8 F 04/20/20 20:00 Pulse 94 04/21/20 12:00 Resp 22 04/21/20 12:00 BP 162/94 04/21/20 12:00 Pulse Ox 94 L 04/21/20 12:00 Intake & Output 04/20/20 04/21/20 04/21/20 18:59 06:59 18:59 Intake Total 753.397 477.553 Output Total 550 850 200 Balance 203.397 -372.447 -200 Weight 79 kg Intake: Intake, IV Titration 45.397 237.553 Amount Heparin Sod,Pork in 0.45% 45.397 137.553 NaCl 25,000 unit In 0.45 % NaCl 1 250ml.bag @ 12 UNITS/KG/HR 9.798 mls/hr IV .Q24H [facility] Rx#: [id number] Magnesium Sulfate-D5w Pmx 100 1 gm In Dextrose/Water 1 100ml.bag @ 100 mls/hr IVPB ONCE ONE Rx#: [id number] Oral 708 240 Output: Urine 550 850 200 Other: Voiding Method Urinal Urinal Urinal Diaper # Voids 2 1 - Exam Physical examination was limited because the patient condition Neurological examination: Mentation: Patient is stupor and would open his eyes to verbal or painful stimuli. Upon the opening his eyes he'll get aggressive and started hitting with his upper extremities. Patient is not responding to questions. Cranial nerves the pupils are midline and could not assess the size. Cannot assess the visual crowder because of his condition. There is no facial weakness that was appreciable. Strength: Gait unable to assess. Motor strength he was moving all extremities and there is no focality that was appreciable but could not assess the each individual extremity because of his condition Sensation unable to assess Reflexes unable to assess because of his cooperation. - Labs CBC & Chem 7: 04/21/20 07:40 04/20/20 09:07 Labs: Abnormal Lab Results - Last 24 Hours (Table) 04/21/20 04/21/20 Range/Units 07:40 07:40 WBC 11.3 H (3.8-10.6) k/uL Neutrophils # 7.8 H (1.3-7.7) k/uL APTT 53.1 H (22.0-30.0) sec Assessment and Plan Assessment: * Delerium. Rule out underlying infection. * Recurrent, crescendo TIAs. * Probable acute to subacute stroke with homonymous right lower quadrantanopia * Hypertension * Arrhythmia * Pacemaker * Hard of hearing * Dyslipidemia Plan: * Because of the patient delirium recommend ruling out underlying infection. * Patient at present not considered a candidate for TPA, due to: * 1) rapidly improving symptoms, now with minimal deficits (NIHSS 2). * 2) unclear if abnormalities on CT are subacute in nature, as it would contraindicate TPA, and pose hemorrhagic risks. * CTA head and neck were negative. * Because of his worsening mentation the primary team ordered CT of the head on 04/21/20 which was reported as no acute intracranial hemorrhage or midline shift. There is mild to moderate diffuse cerebral atrophy and moderate to advanced chronic small vessel ischemic change along the right side surgical change old and demonstrated. No change from prior studies. * Lipid profie: Low cholesterol 221, LDL 145, HDL 31 and triglyceride of 227. * Patient has presented with acute to subacute CVA with right sided visual field deficits mainly involving the lower quadrant. Patient has developed superimposed recurrent TIAs. Rule out cardioembolic source. * Patient had 2-D echo performed: Mild tricuspid regurgitation present. There is evidence of pulmonary hypertension. The right ventricular systolic pressure as measured by Doppler is 16.57 mmHg. * Cardiology is on board, to consider KAY to rule out embolic source. Cardiology evaluated him and they feel at this time he would not be able to cooperate for KAY. * Because of recurrent TIAs,/recent CVA, heparin per A. fib protocol was started on 03/18/20. 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 * Recommend PTT goal to be between 45-60. Currently it's 53.1. * Currently the patient is on aspirin 325 as well and Lipitor 40 mg daily. * Telemetry monitoring * PT OT speech therapy. * Continue aspirin 325 mg daily. * Will order Hemoglobin A1c * The plan was discussed with the patient's . Chava Maguire M.D. Neuro-hospitalist Time with Patient: Greater than 30
[2020-04-21] MEDS: HEPARIN SOD,PORK IN 0.45% NACL 25,000 UNIT in 0.45% NACL 1 250ML.BAG IV SCH (19:03)
[2020-04-21] MEDS ORDERED: hydrALAZINE HCL 20 MG/ML 1 ML VIAL IVP PRN (19:19)
[2020-04-21] MEDS: DEXTROSE 5%-0.9% NACL 1,000 ML IV SCH (23:40)
[2020-04-21 23:46] LABS: Glucose,Whole Blood 128 mg/dL (75-99)
[2020-04-22] MEDS: ATORVASTATIN 40 MG TAB PO SCH ×2 (00:33→22:37)
[2020-04-22] MEDS: VALSARTAN 80 MG TAB PO SCH ×3 (00:33→22:37)
[2020-04-22] MEDS: QUEtiapine 25 MG TAB PO PRN (03:52)
[2020-04-22] MEDS: HALOPERIDOL LACTATE 5 MG/ML 1 ML VIAL IVP PRN (04:07)
[2020-04-22] MEDS: METOPROLOL SUCCINATE (ER) 25 MG TAB.ER.24H PO SCH (08:01)
[2020-04-22] MEDS: QUEtiapine 50 MG TAB PO SCH (08:01)
[2020-04-22] MEDS: ASPIRIN 325 MG TAB PO SCH (08:01)
[2020-04-22] MEDS: PRAZOSIN 1 MG CAP PO SCH ×3 (08:09→22:38)
[2020-04-22] MEDS: amLODIPine 10 MG TAB PO SCH (08:10)
[2020-04-22] MEDS: DEXTROSE 5%-0.9% NACL 1,000 ML IV SCH (09:00)
--- NOTE | 2020-04-22 09:08 | P.PN ---
Subjective This is a pleasant 79-year-old patient of Dr. Rico Robb. Chronic stable medical conditions include hypertension, hyperlipidemia, hard of hearing, permanent pacemaker. Yesterday at 4 PM he was sitting in his backyard with his dog near the pond. There was squirrel running around. He suddenly noticed that he was not able to speak not describe a squirrel. His son happened to,,, white and then he found theword for him. Patient went inside the house He also noticed some double vision. The symptoms lasted for about 1-2 hours. Then completely resolved. 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 Was sent into the ER. Patient had no other focal symptoms. No change in , swallowing or any limb weakness. Blood pressure was running high in the ER. Today -earlier, patient again had trouble with speech. Was sent for repeat computed tomography scan after was called. Repeat computed tomography scan negative. Moved to the telemetry floor. He wanted by neurology. [place]. Homonymous right lower quadrant quadrantanopsia. Speech subsequently improved. Though some trouble finding words. 04/19/2020 This is a pleasant 79 years old male presenting with double vision and slurred speech for about one to 2 hours, CT of the brain was suspicious for bilateral parietal CVA, with looks old per neurology service however need to rule out embolic source, echocardiogram is ordered and KAY is recommended by neurologist and cardiology team was consulted. Also patient was started on heparin drip per neurology service. Continue with aspirin 325 mg per neurologist. Echocardiogram showing ejection fraction 55% with septal wall motion is delayed consistent with ventricular pacing. this morning patient was agitated and he has to be given Haldol 2 mg IV with partial improvement. Seroquel is added and Xanax was stopped, he received 1 small dose of Xanax this morning which might contribute to his worsening confusion. Currently he is sitting on the bed side, common, no blurred vision or speech difficulty, he moves all extremities equally. This is slightly confused especially to place. The at bedside. Discussed plan of care with patient and and they're agreeable. CBC and BMP is unremarkable. 04/20/2020 Yesterday patient was educated so cardiology consult to discuss KAY with him, also overnight he wanted to follow-up his IV for heparin drip, received Seroquel and this morning his more calm and cooperative. However he still confused, he knows he is in the hospital, but she could not name the hospital, he was disoriented to time or person. His disoriented towards his diagnosis. Cardiology team are on the case and they did not recommend KAY for him given his adverse mental status. Currently remain on heparin drip. Follow-up follow-up with the neurologist tomorrow for further recommendation. Today patient denies double vision, no slurred speech, no weakness or numbness, no headache. 04/21/2020 Patient is more confused today, he needed Haldol last night, today he was mumbling with sounds, does not follow commands, agitated, trying to take his clothes off. Cardiology they don't think he is eligible for a KAY, her metastases on heparin drip per nephrology team, we will touch base with the neurology service about the assisted he has leukocytosis of 11.3 came today, no fever.Increased Seroquel and check urine analysis. CT of the brain was negative recently 04/22/2020 Patient still confused and agitated, he needed Haldol 2 overnight, this morning his more sleepy and calm, sitter at bedside, patient opens eyes to verbal stimuli is, not follow commands. Meningeal signs are absent, he moves all extremities equally. Vital signs stable and patient is afebrile. Labs from today are pending neurology following the case closely, cardiology consult on board as well. He remains on heparin drip and D5 normal saline at 75 mL/h. Discussed with staff and bedside nurse to obtain urine sample. Chest x-ray this morning looks clear to me however we will wait for the final report by we'll keep continue workup on monitoring the patient and follow-up recommendation by specialist Review of systems: N/a Objective - Vital Signs Vital signs: Vital Signs Temp 98.2 F 04/22/20 00:00 Pulse 78 04/22/20 04:00 Resp 18 04/22/20 04:00 BP 143/65 04/22/20 04:00 Pulse Ox 94 L 04/22/20 04:00 Intake & Output 04/21/20 04/22/20 04/22/20 18:59 06:59 18:59 Intake Total 250 Output Total 200 540 Balance 50 -540 Weight 77.5 kg Intake: Intake, IV Titration 250 Amount Heparin Sod,Pork in 0.45% 250 NaCl 25,000 unit In 0.45 % NaCl 1 250ml.bag @ 12 UNITS/KG/HR 9.798 mls/hr IV .Q24H [facility] Rx#: [id number] Output: Urine 200 540 Other: Voiding Method Diaper Diaper - Exam -GENERAL: The patient is confused and agitated HEENT: Pupils are round and equally reacting to light. EOMI. No scleral icterus. No conjunctival pallor. Normocephalic, atraumatic. No pharyngeal erythema. No thyromegaly. CARDIOVASCULAR: S1 and S2 present. No murmurs, rubs, or gallops. PULMONARY: Chest is clear to auscultation, no wheezing or crackles. ABDOMEN: Soft, nontender, nondistended, normoactive bowel sounds. No palpable organomegaly. MUSCULOSKELETAL: No joint swelling or deformity. EXTREMITIES: No cyanosis, clubbing, or pedal edema. NEUROLOGICAL: Gross neurological examination did not reveal any focal deficits. SKIN: No rashes. no petechiae. - Labs CBC & Chem 7: 04/21/20 07:40 04/20/20 09:07 Labs: Abnormal Lab Results - Last 24 Hours (Table) 04/21/20 Range/Units 23:42 POC Glucose (mg/dL) 128 H (75-99) mg/dL Assessment and Plan Assessment: -Acute/subacute suture of with superimposed Recurrent TIA . Per neurology patient also had home and it was right lower quadrantonopia. Cardiology recommended no KAY, follow-up with neurologist for further recommendation as his continue on heparin drip for now. -Acute delirium and agitation, could be underlying dementia. Possibly also metabolic encephalopathy secondary to Medical problem. Rule out infection. Obtain UA and chest x-ray. -Hypertensive urgency we'll follow blood pressure closely. Blood pressure is better controlled -Possible elements of dementia -Hyperlipidemia -Permanent pacemaker -Hard of hearing
--- NOTE | 2020-04-22 09:20 | XR ---
EXAMINATION TYPE: XR chest 1V DATE OF EXAM: 04/22/2020 COMPARISON: 04/17/2020 INDICATION: Leukocytosis TECHNIQUE: Single frontal view of the chest is obtained. FINDINGS: The heart size is normal. The pulmonary vasculature is normal. Minimal infiltrate is at the left base Pacemaker overlies left chest. IMPRESSION: 1. Minimal left lower lobe infiltrate.
[2020-04-22 09:45] LABS: Basophils % (A) 0 %; Eosinophils # (A) 0.1 k/uL (0-0.7); Eosinophils % (A) 1 %; HCT 43.8 % (39.0-53.0); HGB 14.6 gm/dL (13.0-17.5); Lymphocytes # (A) 1.8 k/uL (1.0-4.8); Lymphocytes % (A) 16 %; MCH 28.3 pg (25.0-35.0); MCHC 33.3 g/dL (31.0-37.0); Mean Platelet Volume 9.5; Monocytes # (A) 0.7 k/uL (0-1.0); Monocytes % (A) 6 %; Neutrophils % (A) 76 %; Platelet Count 224 k/uL (150-450); RBC 5.15 m/uL (4.30-5.90); RDW 13.6 % (11.5-15.5); WBC 11.8 k/uL (3.8-10.6)
[2020-04-22 10:39] LABS: Calcium 9.7 mg/dL (8.4-10.2); Potassium 3.6 mmol/L (3.5-5.1)
--- NOTE | 2020-04-22 10:53 | PN ---
PROGRESS NOTE Mr. Davidson is an 79-year-old male who presented with TIA symptoms. He was evaluated by Dr. Avila and the plan was to proceed with a KAY, but the patient was quite confused and combative. He has required Haldol. He is sedated at this time. He has a history of hypertension, hyperlipidemia, and permanent pacemaker implantation. He is sedated and not able to answer questions. He is in sinus mechanism. He continues to be at this time on amlodipine 10 mg daily, aspirin once a day, Lipitor 40 mg daily, metoprolol succinate 25 mg daily, valsartan 160 mg in the morning and 80 in the afternoon. PHYSICAL EXAMINATION: Blood pressure 143/60 with a heart rate in the 70s. LUNGS: Clear. HEART regular rate rhythm S1, S2. No S3 with systolic murmur. No diastolic murmur. ABDOMEN: Soft, nontender. EXTREMITIES: No edema. IMPRESSION: 1. Recurrent transient ischemic attack. 2. History of hypertension. 3. Status post permanent pacemaker implantation. 4. Confusion. RECOMMENDATION: From the cardiac standpoint, we will hold on a KAY at this time. The patient's mental status is not stable to proceed with that. His echocardiogram showed no evidence of significant segmental wall motion abnormality nor valvular disease. We will see him on an as-needed basis. Please feel free to call us for any question. MMODL / IJN: [id number] /
[2020-04-22 11:05] LABS: Appearance,Urine Clear (Clear); Bacteria,Urine Rare /hpf; Bilirubin,Urine Negative (Negative); Blood,Urine Moderate (Negative); Color,Urine Yellow; Glucose,Urine (UA) Trace (Negative); Ketones,Urine 2+ (Negative); Leukocyte Esterase,Urine Negative (Negative); Nitrite,Urine Negative (Negative); Protein,Urine 1+ (Negative); RBC,Urine >182 /hpf (0-5); Specific Gravity,Urine 1.024 (1.001-1.035); Squamous Epithelial Cell,Urine <1 /hpf (0-4); WBC,Urine 2 /hpf (0-5)
[2020-04-22] MEDS: HEPARIN SOD,PORK IN 0.45% NACL 25,000 UNIT in 0.45% NACL 1 250ML.BAG IV SCH (14:10)
[2020-04-22 17:15] LABS: Hemoglobin A1C 6.9 % (4.0-6.0)
--- NOTE | 2020-04-22 17:56 | P.PN ---
Subjective Progress Note Date: 04/22/20 According to the patient's nurse the patient is more cooperative today compared to yesterday. But he still not back to baseline. Upon seeing the patient has was at bedside and she stated that the patient was conversing with her appropriately. He was done and wanted to go home. He was called her by her first name. Upon seeing the patient the he would not tell me his name. He just kept on saying I want to go home to his . Patient seems the way less aggressive today compared to yesterday. Objective - Vital Signs Vital signs: Vital Signs Temp 97.7 F 04/22/20 11:50 Pulse 71 04/22/20 11:50 Resp 18 04/22/20 11:50 BP 140/74 04/22/20 11:50 Pulse Ox 94 L 04/22/20 11:50 Intake & Output 04/21/20 04/22/20 04/22/20 18:59 06:59 18:59 Intake Total 250 818.523 Output Total 200 540 200 Balance 50 -540 618.523 Weight 77.5 kg Intake: Intake, IV Titration 250 818.523 Amount Dextrose 5%-0.9% NaCl 1, 600 000 ml @ 50 mls/hr IV . Q20H LEONID Rx#:[id number] Heparin Sod,Pork in 0.45% 250 218.523 NaCl 25,000 unit In 0.45 % NaCl 1 250ml.bag @ 12 UNITS/KG/HR 9.798 mls/hr IV .Q24H LEONID Rx#: [id number] Output: Urine 200 540 200 Other: Voiding Method Diaper Diaper Diaper Incontinent # Voids 2 - Exam Physical examination lying in bed and that does not seem to be in any acute distress.. Chest: The heart is regular rate rhythm. No murmurs to auscultation. Lung: Clear to auscultation bilaterally. Patient is nonlabored breathing. Neurological examination: Mentation: The patient is drowsy but opens eyes to verbal stimuli. Patient is not oriented to self place or time. All he states is that he wants to go home. He does not follow any commands. Cranial nerves: The pupils are round equal reactive to light. The pupils are round at 3-4 mm bilaterally. Facial sensation was not assessed because of the patient cooperation. No facial weakness is noted the bilaterally. No dysarthria. Strength: Gait unable to assess. Motor strength: Limited because of the patient cooperation. He was bending his bilateral elbows and at the bed and there does not seem to be any focality. Upon asking him to move his lower extremity he said "stop it". Sensation unable to assess Reflexes unable to assess because of his cooperation. - Labs CBC & Chem 7: 04/22/20 09:08 04/22/20 09:08 Labs: Abnormal Lab Results - Last 24 Hours (Table) 04/21/20 04/22/20 04/22/20 Range/Units 23:42 08:20 09:08 WBC (3.8-10.6) k/uL Neutrophils # (1.3-7.7) k/uL APTT (22.0-30.0) sec BUN (9-20) mg/dL Glucose (74-99) mg/dL POC Glucose (mg/dL) 128 H (75-99) mg/dL Hemoglobin A1c 6.9 H (4.0-6.0) % Urine Protein 1+ H (Negative) Urine Glucose (UA) Trace H (Negative) Urine Ketones 2+ H (Negative) Urine Blood Moderate H (Negative) Urine RBC >182 H (0-5) /hpf Urine Bacteria Rare H (None) /hpf 04/22/20 04/22/20 04/22/20 Range/Units 09:08 09:08 09:08 WBC 11.8 H (3.8-10.6) k/uL Neutrophils # 9.0 H (1.3-7.7) k/uL APTT 52.1 H (22.0-30.0) sec BUN 22 H (9-20) mg/dL Glucose 169 H (74-99) mg/dL POC Glucose (mg/dL) (75-99) mg/dL Hemoglobin A1c (4.0-6.0) % Urine Protein (Negative) Urine Glucose (UA) (Negative) Urine Ketones (Negative) Urine Blood (Negative) Urine RBC (0-5) /hpf Urine Bacteria (None) /hpf Assessment and Plan Assessment: * Delerium. Rule out underlying infection (has trending upwards of leukocytosis). * Recurrent, crescendo TIAs. * Probable acute to subacute stroke with homonymous right lower quadrantanopia * Leukocytosis * Hypertension * Arrhythmia * Pacemaker * Hard of hearing * Dyslipidemia * Diabetes mellitus Plan: * Because of the patient delirium recommend ruling out underlying infection. * Chest x-ray showed minimal left lower lobe infiltrate. The primary team thinks that the patient has pneumonia and we'll treat him for it. Urine analysis was negative for urinary tract infection. Pending blood cultures. * Ammonia level is less than 9. * Patient at present not considered a candidate for TPA, due to: * 1) rapidly improving symptoms, now with minimal deficits (NIHSS 2). * 2) unclear if abnormalities on CT are subacute in nature, as it would contraindicate TPA, and pose hemorrhagic risks. * CTA head and neck were negative. * Because of his worsening mentation the primary team ordered CT of the head on 04/21/20 which was reported as no acute intracranial hemorrhage or midline shift. There is mild to moderate diffuse cerebral atrophy and moderate to advanced chronic small vessel ischemic change along the right side surgical change old and demonstrated. No change from prior studies. * Lipid profie: Low cholesterol 221, LDL 145, HDL 31 and triglyceride of 227. * Patient has presented with acute to subacute CVA with right sided visual field deficits mainly involving the lower quadrant. Patient has developed superimposed recurrent TIAs. Rule out cardioembolic source. * Patient had 2-D echo performed: Mild tricuspid regurgitation present. There is evidence of pulmonary hypertension. The right ventricular systolic pressure as measured by Doppler is 16.57 mmHg. * Currently the patient is on aspirin 325mg as well and Lipitor 40 mg daily. * Cardiology is on board, to consider KAY to rule out embolic source. Cardiology evaluated him and they feel at this time he would not be able to c ooperate for KAY. I spoke with the cardiology team they feel they and that the KAY will be a little bit difficult to get as an inpatient because of his mentation. I notified them the to consider a loop recorder versus Holter monitor. * Also consider oral anticoagulation (such as Apixaban) especially because of thought processes of cardioembolic stroke. I spoke with the patient's and that she notified me that she wants to hold off for now on ~patient's mentation improves. If the patient's mentation improve and he is back to baseline then she'll consider the patient to be on anticoagulation. * Because of recurrent TIAs,/recent CVA, heparin per A. fib protocol was started on 03/18/20. 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 * Recommend PTT goal to be between 45-60. Currently it's 52.1. * Telemetry monitoring * PT OT speech therapy. * Hemoglobin A1c: 6.9 TSH: 2.6 * The plan was discussed with the patient's . Chava Maguire M.D. Neuro-hospitalist Time with Patient: Greater than 30
[2020-04-22] MEDS: PIPERACILLIN-TAZOBACTAM 3.375 GM in SODIUM CHLORIDE 0.9% 100 ML IVPB SCH (18:16)
[2020-04-22 21:27] LABS: Folate, Serum 8.9 ng/mL
[2020-04-22] MEDS: FAMOTIDINE 20 MG/2 ML VIAL IV SCH (22:37)
[2020-04-23] MEDS: HALOPERIDOL LACTATE 5 MG/ML 1 ML VIAL IVP PRN ×3 (00:31→21:06)
[2020-04-23] MEDS: PIPERACILLIN-TAZOBACTAM 3.375 GM in SODIUM CHLORIDE 0.9% 100 ML IVPB SCH ×4 (00:32→23:52)
[2020-04-23] MEDS: DEXTROSE 5%-0.9% NACL 1,000 ML IV SCH ×2 (05:56→20:39)
[2020-04-23 08:07] LABS: Calcium 9.6 mg/dL (8.4-10.2); Potassium 3.2 mmol/L (3.5-5.1)
[2020-04-23 08:10] LABS: Basophils # (A) 0.1 k/uL (0-0.2); Basophils % (A) 1 %; Eosinophils # (A) 0.1 k/uL (0-0.7); Eosinophils % (A) 1 %; HGB 15.6 gm/dL (13.0-17.5); Lymphocytes # (A) 1.9 k/uL (1.0-4.8); Lymphocytes % (A) 16 %; MCH 29.2 pg (25.0-35.0); MCHC 33.3 g/dL (31.0-37.0); MCV 87.7 fL (80.0-100.0); Mean Platelet Volume 9.5; Monocytes # (A) 0.6 k/uL (0-1.0); Monocytes % (A) 5 %; Neutrophils # (A) 8.9 k/uL (1.3-7.7); Neutrophils % (A) 76 %; Platelet Count 207 k/uL (150-450); RBC 5.36 m/uL (4.30-5.90); RDW 13.3 % (11.5-15.5); WBC 11.7 k/uL (3.8-10.6)
[2020-04-23] MEDS: PRAZOSIN 1 MG CAP PO SCH ×3 (08:20→21:05)
[2020-04-23] MEDS: ASPIRIN 325 MG TAB PO SCH (08:20)
[2020-04-23] MEDS: VALSARTAN 80 MG TAB PO SCH ×2 (08:20→21:05)
[2020-04-23] MEDS: FAMOTIDINE 20 MG/2 ML VIAL IV SCH ×2 (08:21→21:05)
[2020-04-23] MEDS: METOPROLOL SUCCINATE (ER) 25 MG TAB.ER.24H PO SCH (08:21)
[2020-04-23] MEDS: amLODIPine 10 MG TAB PO SCH (08:21)
[2020-04-23] MEDS: QUEtiapine 50 MG TAB PO SCH (08:21)
--- NOTE | 2020-04-23 09:05 | P.PN ---
Subjective This is a pleasant 79-year-old patient of Dr. Rico Robb. Chronic stable medical conditions include hypertension, hyperlipidemia, hard of hearing, permanent pacemaker. Yesterday at 4 PM he was sitting in his backyard with his dog near the pond. There was squirrel running around. He suddenly noticed that he was not able to speak not describe a squirrel. His son happened to,,, white and then he found theword for him. Patient went inside the house He also noticed some double vision. The symptoms lasted for about 1-2 hours. Then completely resolved. Today morning he decided to go to his ends down checker. Was sent into the ER. Patient had no other focal symptoms. No change in , swallowing or any limb weakness. Blood pressure was running high in the ER. Today -earlier, patient again had trouble with speech. Was sent for repeat computed tomography scan after was called. Repeat computed tomography scan negative. Moved to the telemetry floor. He wanted by neurology. [place]. Homonymous right lower quadrant quadrantanopsia. Speech subsequently improved. Though some trouble finding words. 04/19/2020 This is a pleasant 79 years old male presenting with double vision and slurred speech for about one to 2 hours, CT of the brain was suspicious for bilateral parietal CVA, with looks old per neurology service however need to rule out embolic source, echocardiogram is ordered and KAY is recommended by neurologist and cardiology team was consulted. Also patient was started on heparin drip per neurology service. Continue with aspirin 325 mg per neurologist. Echocardiogram showing ejection fraction 55% with septal wall motion is delayed consistent with ventricular pacing. this morning patient was agitated and he has to be given Haldol 2 mg IV with partial improvement. Seroquel is added and Xanax was stopped, he received 1 small dose of Xanax this morning which might contribute to his worsening confusion. Currently he is sitting on the bed side, common, no blurred vision or speech difficulty, he moves all extremities equally. This is slightly confused especially to place. The at bedside. Discussed plan of care with patient and and they're agreeable. CBC and BMP is unremarkable. 04/20/2020 Yesterday patient was educated so cardiology consult to discuss KAY with him, also overnight he wanted to follow-up his IV for heparin drip, received Seroquel and this morning his more calm and cooperative. However he still confused, he knows he is in the hospital, but she could not name the hospital, he was disoriented to time or person. His disoriented towards his diagnosis. Cardiology team are on the case and they did not recommend KAY for him given his adverse mental status. Currently remain on heparin drip. Follow-up follow-up with the neurologist tomorrow for further recommendation. Today patient denies double vision, no slurred speech, no weakness or numbness, no headache. 04/21/2020 Patient is more confused today, he needed Haldol last night, today he was mumbling with sounds, does not follow commands, agitated, trying to take his clothes off. Cardiology they don't think he is eligible for a KAY, her metastases on heparin drip per nephrology team, we will touch base with the neurology service about the assisted he has leukocytosis of 11.3 came today, no fever.Increased Seroquel and check urine analysis. CT of the brain was negative recently 04/22/2020 Patient still confused and agitated, he needed Haldol 2 overnight, this morning his more sleepy and calm, sitter at bedside, patient opens eyes to verbal stimuli is, not follow commands. Meningeal signs are absent, he moves all extremities equally. Vital signs stable and patient is afebrile. Labs from today are pending neurology following the case closely, cardiology consult on board as well. He remains on heparin drip and D5 normal saline at 75 mL/h. Discussed with staff and bedside nurse to obtain urine sample. Chest x-ray this morning looks clear to me however we will wait for the final report by we'll keep continue workup on monitoring the patient and follow-up recommendation by specialist 04/23/2020 Patient is still confused he was agitated last night and received a dose of Haldol, however this morning is more calm he talks with sounds like which bouts unrelated to questions for example "she likes to do it her way" Sitter at bedside. His abdominal exam is soft he denies chest pain not tachypneic, no rash. Hemodynamically stable. WBC is 11.7 K. Potassium 3.2 which is slightly low. TSH is normal at 2.6, vitamin B12 is low-normal 208. Which is going to be replaced. I discussed the case with the neurologist and the recommendation is to continue with anticoagulation and when he is more stable and the agree he can be switched to oral anticoagulants. As the benefits felt more than risk, KAY could not be done by fitness manager due to his conditions and multiple medical problems and lack of cooperation. He remains on heparin drip and a gentle hydration at 50 mL per hour. He is going for EEG R on today Yesterday he was started on Zosyn for possible aspiration pneumonia which causing him delirious and agitated, today looks slightly better Discussed with staff. Review of systems: N/a Active Medications Generic Name Dose Route Start Last Admin Trade Name Freq PRN Reason Stop Dose Admin Acetaminophen 650 mg 04/17/20 21:47 04/20/20 13:58 Acetaminophen Tab 325 Mg Tab PO 650 mg Q6HR PRN Administration Mild Pain or Fever > 100.5 Al Hydroxide/Mg Hydroxide 15 ml 04/17/20 21:47 Mag Hydrox/Al Hydrox/Simeth 30 Ml Cup PO Q6HR PRN Indigestion Amlodipine Besylate 10 mg 04/18/20 09:00 04/23/20 08:21 Amlodipine 10 Mg Tab PO 10 mg DAILY LEONID Administration Aspirin 325 mg 04/18/20 09:00 04/23/20 08:20 Aspirin 325 Mg Tab PO 325 mg DAILY LEONID Administration Atorvastatin Calcium 40 mg 04/17/20 21:45 04/22/20 22:37 Atorvastatin 40 Mg Tab PO 40 mg HS LEONID Administration Calcium Carbonate/Glycine 1,000 mg 04/17/20 21:47 Calcium Carbonate 500 Mg Chewable PO Q4HR PRN Dyspepsia Famotidine 10 mg 04/22/20 21:00 04/23/20 08:21 Famotidine 20 Mg/2 Ml Vial IV 10 mg Q12HR LEONID Administration Haloperidol Lactate 2 mg 04/19/20 08:45 04/21/20 21:40 Haloperidol Lactate 5 Mg/Ml 1 Ml Vial IM 2 mg ONCE PRN Administration Agitation or Acute Psychosis Haloperidol Lactate 1 mg 04/19/20 10:07 04/23/20 00:31 Haloperidol Lactate 5 Mg/Ml 1 Ml Vial IVP 1 mg Q6HR PRN Administration Agitation or Acute Psychosis Heparin Sodium (Porcine) 0 unit 04/18/20 11:27 Heparin Sodium,Porcine 5,000 Unit/Ml 1 Ml Vial IV PER PROTOCOL PRN Low PTT Protocol Hydralazine HCl 5 mg 04/21/20 19:19 Hydralazine Hcl 20 Mg/Ml 1 Ml Vial IVP Q6HR PRN Blood Pressure - High Heparin Sodium/Sodium Chloride 250 mls @ 9.798 mls/hr 04/18/20 11:30 04/22/20 14:10 25,000 unit/ Sodium Chloride IV 14 units/kg/hr .Q24H LEONID 11.431 mls/hr Administration Protocol 12 UNITS/KG/HR Dextrose/Sodium Chloride 1,000 mls @ 50 mls/hr 04/21/20 19:30 04/23/20 05:56 Dextrose 5%-Ns Iv Soln IV 50 mls/hr .Q20H LEONID Administration Piperacillin Sod/Tazobactam 100 mls @ 25 mls/hr 04/22/20 16:00 04/23/20 08:20 Sod 3.375 gm/ Sodium Chloride IVPB 25 mls/hr Q8HR LEONID Administration Lactulose 20 gm 04/17/20 21:47 Lactulose 20 Gm/30 Ml Cup PO DAILY PRN Constipation Magnesium Hydroxide 2,400 mg 04/17/20 21:47 Magnesium Hydroxide 2,400 Mg/10 Ml Cup PO DAILY PRN Constipation Melatonin 3 mg 04/17/20 21:47 04/19/20 22:27 Melatonin 3 Mg Tablet PO 3 mg HS PRN Administration Insomnia Metoprolol Succinate 25 mg 04/18/20 09:00 04/23/20 08:21 Metoprolol Succinate (Er) 25 Mg Tab.Er.24h PO 25 mg DAILY LEONID Administration Naloxone HCl 0.2 mg 04/17/20 21:47 Naloxone 0.4 Mg/Ml 1 Ml Vial IV Q2M PRN Opioid Reversal Ondansetron HCl 4 mg 04/17/20 21:47 Ondansetron 4 Mg/2 Ml Vial IVP Q8HR PRN Nausea And Vomiting Prazosin HCl 2 mg 04/17/20 22:00 04/23/20 08:20 Prazosin 1 Mg Cap PO 2 mg TID LEONID Administration Quetiapine Fumarate 25 mg 04/19/20 11:42 04/20/20 20:24 Quetiapine 25 Mg Tab PO 25 mg TID PRN Administration Agitation or Acute Anxiety Quetiapine Fumarate 50 mg 04/21/20 09:00 04/23/20 08:21 Quetiapine 50 Mg Tab PO 50 mg DAILY LEONID Administration Temazepam 15 mg 04/17/20 21:47 04/20/20 23:17 Temazepam 15 Mg Cap PO 15 mg HS PRN Administration Insomnia Valsartan 160 mg 04/18/20 09:00 04/23/20 08:20 Valsartan 80 Mg Tab PO 160 mg DAILY LEONID Administration Valsartan 80 mg 04/17/20 21:30 04/22/20 22:37 Valsartan 80 Mg Tab PO 80 mg HS LEONID Administration Objective - Vital Signs Vital signs: Vital Signs Temp 98.4 F 04/23/20 00:00 Pulse 54 L 04/23/20 04:00 Resp 20 04/23/20 04:00 BP 133/57 04/23/20 04:00 Pulse Ox 95 04/23/20 04:00 Intake & Output 04/22/20 04/23/20 04/23/20 18:59 06:59 18:59 Intake Total 818.523 Output Total 200 Balance 618.523 Weight 77.2 kg Intake: Intake, IV Titration 818.523 Amount Dextrose 5%-0.9% NaCl 1, 600 000 ml @ 50 mls/hr IV . Q20H LEONID Rx#:[id number] Heparin Sod,Pork in 0.45% 218.523 NaCl 25,000 unit In 0.45 % NaCl 1 250ml.bag @ 12 UNITS/KG/HR 9.798 mls/hr IV .Q24H LEONID Rx#: [id number] Output: Urine 200 Other: Voiding Method Diaper Diaper Incontinent Incontinent # Voids 2 2 - Exam -GENERAL: The patient is confused and agitated HEENT: Pupils are round and equally reacting to light. EOMI. No scleral icterus. No conjunctival pallor. Normocephalic, atraumatic. No pharyngeal erythema. No thyromegaly. CARDIOVASCULAR: S1 and S2 present. No murmurs, rubs, or gallops. PULMONARY: Chest is clear to auscultation, no wheezing or crackles. ABDOMEN: Soft, nontender, nondistended, normoactive bowel sounds. No palpable organomegaly. MUSCULOSKELETAL: No joint swelling or deformity. EXTREMITIES: No cyanosis, clubbing, or pedal edema. NEUROLOGICAL: Gross neurological examination did not reveal any focal deficits. SKIN: No rashes. no petechiae. - Labs CBC & Chem 7: 04/23/20 07:09 04/23/20 07:09 Labs: Abnormal Lab Results - Last 24 Hours (Table) 04/22/20 04/22/20 04/22/20 Range/Units 08:20 09:08 09:08 WBC (3.8-10.6) k/uL Neutrophils # (1.3-7.7) k/uL APTT 52.1 H (22.0-30.0) sec Potassium (3.5-5.1) mmol/L Chloride (98-107) mmol/L BUN (9-20) mg/dL Glucose (74-99) mg/dL Hemoglobin A1c 6.9 H (4.0-6.0) % Urine Protein 1+ H (Negative) Urine Glucose (UA) Trace H (Negative) Urine Ketones 2+ H (Negative) Urine Blood Moderate H (Negative) Urine RBC >182 H (0-5) /hpf Urine Bacteria Rare H (None) /hpf 04/22/20 04/22/20 04/23/20 Range/Units 09:08 09:08 07:09 WBC 11.8 H 11.7 H (3.8-10.6) k/uL Neutrophils # 9.0 H 8.9 H (1.3-7.7) k/uL APTT (22.0-30.0) sec Potassium (3.5-5.1) mmol/L Chloride (98-107) mmol/L BUN 22 H (9-20) mg/dL Glucose 169 H (74-99) mg/dL Hemoglobin A1c (4.0-6.0) % Urine Protein (Negative) Urine Glucose (UA) (Negative) Urine Ketones (Negative) Urine Blood (Negative) Urine RBC (0-5) /hpf Urine Bacteria (None) /hpf 04/23/20 04/23/20 Range/Units 07:09 07:09 WBC (3.8-10.6) k/uL Neutrophils # (1.3-7.7) k/uL APTT 54.0 H (22.0-30.0) sec Potassium 3.2 L (3.5-5.1) mmol/L Chloride 108 H (98-107) mmol/L BUN (9-20) mg/dL Glucose 189 H (74-99) mg/dL Hemoglobin A1c (4.0-6.0) % Urine Protein (Negative) Urine Glucose (UA) (Negative) Urine Ketones (Negative) Urine Blood (Negative) Urine RBC (0-5) /hpf Urine Bacteria (None) /hpf Assessment and Plan Assessment: -Acute/subacute suture of with superimposed Recurrent TIA . Per neurology patient also had home and it was right lower quadrantonopia. Cardiology recommended no KAY, follow-up EEG, follow-up with neurologist for further recommendation as his continue on heparin drip for now. -Left lower lobe pneumonia, possible aspiration pneumonia with metabolic encephalopathy. -Acute delirium and agitation, could be underlying dementia. Possibly also metabolic encephalopathy secondary to Medical problem. Obtain UA and chest x- ray. -Hypertensive urgency we'll follow blood pressure closely. Blood pressure is better controlled -Possible elements of dementia -Hyperlipidemia -Permanent pacemaker -Hard of hearing
[2020-04-23] MEDS: HEPARIN SOD,PORK IN 0.45% NACL 25,000 UNIT in 0.45% NACL 1 250ML.BAG IV SCH (11:24)
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
[2020-04-23] MEDS: ATORVASTATIN 40 MG TAB PO SCH (21:05)
[2020-04-23] MEDS: MELATONIN 5 MG TABLET PO SCH (21:05)
[2020-04-23] MEDS: CYANOCOBALAMIN 1,000 MCG/ML 1 ML VIAL IM SCH (22:18)
[2020-04-24] MEDS ORDERED: NALOXONE 0.4 MG/ML 1 ML VIAL IV PRN (01:29)
[2020-04-24] MEDS ORDERED: ONDANSETRON 4 MG/2 ML VIAL IVP PRN (01:29)
[2020-04-24] MEDS: FAMOTIDINE 20 MG/2 ML VIAL IV SCH ×2 (08:47→20:28)
[2020-04-24] MEDS: PIPERACILLIN-TAZOBACTAM 3.375 GM in SODIUM CHLORIDE 0.9% 100 ML IVPB SCH ×3 (08:47→23:36)
[2020-04-24 10:19] LABS: Basophils # (A) 0.1 k/uL (0-0.2); Basophils % (A) 1 %; Eosinophils # (A) 0.1 k/uL (0-0.7); Eosinophils % (A) 1 %; HCT 46.3 % (39.0-53.0); HGB 15.4 gm/dL (13.0-17.5); Lymphocytes # (A) 2.2 k/uL (1.0-4.8); Lymphocytes % (A) 18 %; MCH 28.5 pg (25.0-35.0); MCHC 33.3 g/dL (31.0-37.0); MCV 85.5 fL (80.0-100.0); Mean Platelet Volume 9.2; Monocytes # (A) 0.7 k/uL (0-1.0); Monocytes % (A) 6 %; Neutrophils # (A) 8.6 k/uL (1.3-7.7); Neutrophils % (A) 72 %; Platelet Count 217 k/uL (150-450); RBC 5.41 m/uL (4.30-5.90); RDW 13.2 % (11.5-15.5); WBC 11.9 k/uL (3.8-10.6)
[2020-04-24] MEDS: METOPROLOL SUCCINATE (ER) 25 MG TAB.ER.24H PO SCH (10:45)
[2020-04-24] MEDS: ASPIRIN 325 MG TAB PO SCH (10:45)
[2020-04-24] MEDS: amLODIPine 10 MG TAB PO SCH (10:45)
[2020-04-24] MEDS: PRAZOSIN 1 MG CAP PO SCH ×3 (10:45→20:27)
[2020-04-24] MEDS: VALSARTAN 160 MG TAB PO SCH (10:46)
[2020-04-24] MEDS: QUEtiapine 50 MG TAB PO SCH (10:46)
[2020-04-24 10:49] LABS: Calcium 9.6 mg/dL (8.4-10.2); Potassium 3.3 mmol/L (3.5-5.1)
--- NOTE | 2020-04-24 11:08 | XR ---
EXAMINATION TYPE: XR chest 1V portable DATE OF EXAM: 04/24/2020 COMPARISON: 04/22/2020 INDICATION: Pneumonia, TIA TECHNIQUE: Single frontal view of the chest is obtained. FINDINGS: The heart size is normal. The pulmonary vasculature is normal. Mild infiltrate is developed at the left costophrenic angle. Pacemaker overlies left chest. IMPRESSION: 1. Small left costophrenic angle infiltrate. Correlate for atelectasis and pneumonia.
--- NOTE | 2020-04-24 11:49 | P.PN ---
Subjective Progress Note Date: 04/24/20 This is an 79-year-old gentleman with past medical history for hypertension, hyperlipidemia, prior pacemaker implantation, remote history of tobacco use who presented to the hospital for possible TIA. Because of the patient's sedimentation status he did not undergo a KAY. Dr. Boyce had a lengt hy discussion this with the neurologist, the decision was also made to not anticoagulate the patient with oral anticoagulation because of the mental status. The risks outweighing the benefit. Blood pressure this morning 160/70 with a heart rate in the 70s, 96% on room air. Objective - Vital Signs Vital signs: Vital Signs Temp 97.3 F L 04/24/20 08:30 Pulse 72 04/24/20 08:30 Resp 18 04/24/20 08:30 BP 160/76 04/24/20 08:30 Pulse Ox 96 04/24/20 08:30 Intake & Output 04/23/20 04/24/20 04/24/20 18:59 06:59 18:59 Intake Total 342.718 50 Output Total 0 0 0 Balance 342.718 50 0 Weight 79.5 kg Intake: Intake, IV Titration 342.718 Amount Heparin Sod,Pork in 0.45% 242.718 NaCl 25,000 unit In 0.45 % NaCl 1 250ml.bag @ 12 UNITS/KG/HR 9.798 mls/hr IV .Q24H [facility] Rx#: [id number] Piperacillin-Tazobactam 3 100 .375 gm In Sodium Chloride 0.9% 100 ml @ 25 mls/hr IVPB Q8HR [facility] Rx# :[id number] Oral 50 Output: Urine 0 0 0 Other: Voiding Method Diaper Diaper Incontinent Incontinent # Voids 0 0 3 # Bowel Movements 1 - Exam Gen: 79-year-old gentleman in no acute distress at the time of my examination VS: Afebrile, heart rate 84, blood pressure 1 4467, pulse ox 98% on room air. HEENT: Head is atraumatic, normocephalic. Pupils equal, round. Sclerae is anicteric. NECK: Supple. No JVD. No lymphadenopathy. No thyromegaly. LUNGS: Clear to auscultation. No wheezes or rhonchi. No intercostal retractions. HEART: Regular rate and rhythm. No murmur. ABDOMEN: Soft. Bowel sounds are present. No masses. No tenderness. EXTREMITIES: No pedal edema. No calf tenderness. NEUROLOGICAL: Patient is awake, alert and oriented x1. Cranial nerves 2 through 12 are grossly intact. - Labs CBC & Chem 7: 04/24/20 09:52 04/24/20 09:52 Labs: Abnormal Lab Results - Last 24 Hours (Table) 04/24/20 04/24/20 04/24/20 Range/Units 09:52 09:52 09:52 WBC 11.9 H (3.8-10.6) k/uL Neutrophils # 8.6 H (1.3-7.7) k/uL APTT 51.2 H (22.0-30.0) sec Potassium 3.3 L (3.5-5.1) mmol/L Chloride 109 H (98-107) mmol/L Glucose 150 H (74-99) mg/dL Microbiology - Last 24 Hours (Table) 04/22/20 13:09 Blood Culture - Preliminary Blood No Growth after 24 hours 04/22/20 13:16 Blood Culture - Preliminary Blood No Growth after 24 hours Assessment and Plan Plan: Assessment and plan #1 recurrent, crescendo TIAs, patient not a candidate for anti-coagulation because of lesion, risk outweighing the benefit. We will discontinue the IV heparin today #2 hypertension #3 hyperlipidemia #4 prior pacemaker implantation Plan We will discontinue the patient's heparin, we'll follow this patient along with you now on an as-needed basis only, please don't hesitate to call with any questions. DNP note has been reviewed, I agree with a documented findings and plan of care. Patient was seen and examined.
--- NOTE | 2020-04-24 12:04 | P.PN ---
Subjective Progress Note Date: 04/24/20 The patient was seen at bedside and per the nurse he seem less agitated today compared to yesterday. He had a very loose stool with very foul ordor. Upon seeing the patient he seemed somnolent. I spoke with the cardiology team regarding the heparin. The use and the was agreed that to avoid any anticoagulation for now and just pursue antiplatelets. Objective - Vital Signs Vital signs: Vital Signs Temp 97.3 F L 04/24/20 08:30 Pulse 72 04/24/20 08:30 Resp 18 04/24/20 08:30 BP 160/76 04/24/20 08:30 Pulse Ox 96 04/24/20 08:30 Intake & Output 04/23/20 04/24/20 04/24/20 18:59 06:59 18:59 Intake Total 342.718 50 Output Total 0 0 0 Balance 342.718 50 0 Weight 79.5 kg Intake: Intake, IV Titration 342.718 Amount Heparin Sod,Pork in 0.45% 242.718 NaCl 25,000 unit In 0.45 % NaCl 1 250ml.bag @ 12 UNITS/KG/HR 9.798 mls/hr IV .Q24H [facility] Rx#: [id number] Piperacillin-Tazobactam 3 100 .375 gm In Sodium Chloride 0.9% 100 ml @ 25 mls/hr IVPB Q8HR [facility] Rx# :[id number] Oral 50 Output: Urine 0 0 0 Other: Voiding Method Diaper Diaper Incontinent Incontinent # Voids 0 0 0 - Exam Physical exam was limited because of patient condition. The patient is drowsy but is awake couple to voice. He was not verbalizing was more gibberish talk. Followed very few simple commands The pupils are round equal and reactive to light. The pupils are round the 3mm bilaterally. The visual crowder are full to confrontation upon assessment. There is no facial weakness noted the bilaterally. Strength: He is able to bend his elbows and at bedside and able to squeeze the both my hands and is seems symmetrical. Cannot assess his lower extremities because of the patient cooperation. Sensation unable to assess. Reflexes unable to assess - Labs CBC & Chem 7: 04/24/20 09:52 04/24/20 09:52 Labs: Abnormal Lab Results - Last 24 Hours (Table) 04/24/20 Range/Units 09:52 WBC 11.9 H (3.8-10.6) k/uL Neutrophils # 8.6 H (1.3-7.7) k/uL Microbiology - Last 24 Hours (Table) 04/22/20 13:09 Blood Culture - Preliminary Blood No Growth after 24 hours 04/22/20 13:16 Blood Culture - Preliminary Blood No Growth after 24 hours Assessment and Plan Assessment: * Delerium. * Recurrent, crescendo TIAs. * Probable acute to subacute stroke with homonymous right lower quadrantanopia * Leukocytosis * Hypertension * Arrhythmia * Pacemaker * Hard of hearing * Dyslipidemia * Diabetes mellitus Plan: * Patient has presented with acute to subacute CVA with right sided visual field deficits mainly involving the lower quadrant. Patient has developed superimposed recurrent TIAs. Rule out cardioembolic source. * Patient had 2-D echo performed: Mild tricuspid regurgitation present. There is evidence of pulmonary hypertension. The right ventricular systolic pre ssure as measured by Doppler is 16.57 mmHg. * Patient at present not considered a candidate for TPA, due to: * 1) rapidly improving symptoms, now with minimal deficits (NIHSS 2). * 2) unclear if abnormalities on CT are subacute in nature, as it would contraindicate TPA, and pose hemorrhagic risks. * CTA head and neck were negative. * Because of his worsening mentation the primary team ordered CT of the head on 04/21/20 which was reported as no acute intracranial hemorrhage or midline shift. There is mild to moderate diffuse cerebral atrophy and moderate to advanced chronic small vessel ischemic change along the right side surgical change old and demonstrated. No change from prior studies. * Lipid profie: Low cholesterol 221, LDL 145, HDL 31 and triglyceride of 227. * Cardiology is on board, to consider KAY to rule out embolic source. Cardiology evaluated him and they feel at this time he would not be able to cooperate for KAY. I spoke with the cardiology team they feel they that the KAY will be a little bit difficult to get as an inpatient because of his mentation. I notified them the to consider a loop recorder versus Holter monitor. * Because of recurrent TIAs,/recent CVA, heparin per A. fib protocol was started on 03/18/20. Because of the patient to her recent stroke as well as his recurrent TIAs * I spoke with the cardiology team regarding the use of anticoagulation and it was agreed to stop by the anticoagulation and the they don't feel like this is necessarily the embolic in nature. There are recommend antiplatelets and dominant agreement with that. * Currently the patient is on aspirin 325mg. I will add the Plavix 75 mg (for 21 days) in addition to the aspirin. After 21 days patient to stop by the Plavix. Continue Lipitor 40 mg daily. * Telemetry monitoring. No atrial fibrillation or flutter is seen during his stay. * PT OT speech therapy. * Hemoglobin A1c: 6.9 TSH: 2.6 * Ammonia level is less than 9. * EEG is being reattempted today * Recommend the checking for C. diff because of loose stool and the foul order. Chava Maguire M.D. Neuro-hospitalist Time with Patient: Greater than 30
[2020-04-24] MEDS: DEXTROSE 5%-0.9% NACL 1,000 ML IV SCH (14:50)
[2020-04-24] MEDS: CYANOCOBALAMIN 1,000 MCG/ML 1 ML VIAL IM SCH (14:51)
[2020-04-24 15:07] VITALS: BMI 25.1
[2020-04-24] MEDS: CLOPIDOGREL 75 MG TAB PO SCH (15:10)
--- NOTE | 2020-04-24 17:33 | EEG ---
ELECTROENCEPHALOGRAM REPORT DATE OF SERVICE: 04/24/2020 PROCEDURE: EEG CLINICAL HISTORY: This is an 79-year-old gentleman with a medical history of recurrent transient ischemic attack that presented to the emergency department on 04/18/2020 for stroke-like symptoms. During hospitalization, the patient has altered mental status. This video EEG was obtained to evaluate for seizure and epileptiform activity. RELEVANT MEDICATION,: Not on any centrally acting medication. EEG TYPE: This is a 21 channel EEG that was performed with video using the 10/20 electrode placement system. DESCRIPTION: Wakefulness, drowsiness and stage 2 sleep are obtained. There is no clear posterior dominant rhythm. During stimulated state, the patient had a diffuse [id number] voltage of 7.5-8.5 hertz activity and at times intermixed with delta activity. During unstimulated state, there is low voltage of diffuse 1-1.5 hertz delta activity and at times intermixed with theta activity. During stage 2 sleep, there are sleep spindles and K complexes. There are occasional myogenic artifacts seen on bilateral hemispheres during the study. INTERICTAL AND ICTAL: None. ACTIVATION PROCEDURE: Photic stimulation was not performed because of the patient's lack of cooperation. Hyperventilation was not performed because of the patient clinical condition. CLINICAL INTERPRETATION: This is an abnormal routine EEG during awake, drowsy and asleep state with background slowing suggestive of mild to moderate encephalopathy of unspecified etiology. There is no focal slowing, epileptiform discharges, or seizure activity during this EEG. There are occasional myogenic artifacts seen on bilateral hemispheres during the study. Clinical correlation is recommended. SAKSHI / DEEPAN: [id number] / MTDAdrianna
[2020-04-24] MEDS: QUEtiapine 25 MG TAB PO SCH (20:24)
[2020-04-24] MEDS: MELATONIN 5 MG TABLET PO SCH (20:26)
[2020-04-24] MEDS: VALSARTAN 80 MG TAB PO SCH (20:27)
[2020-04-24] MEDS: ATORVASTATIN 40 MG TAB PO SCH (20:28)
--- NOTE | 2020-04-24 21:58 | P.PN ---
Progress Note - Text Progress Note Date: 04/24/20 Chief Complaint: Loss of speech and double vision History of presenting complaint: This is a pleasant 79-year-old patient of Dr. Rico Robb. Chronic stable medical conditions include hypertension, hyperlipidemia, hard of hearing, permanent pacemaker. Yesterday at 4 PM he was sitting in his backyard with his dog near the pond. There was squirrel running around. He suddenly noticed that he was not able to speak not describe a squirrel. His son happened to,,, white and then he found theword for him. Patient went inside the house He also noticed some double vision. The symptoms lasted for about 1-2 hours. Then completely resolved. Today morning he decided to go to his vocational rehabilitation technician. Was sent into the ER. Patient had no other focal symptoms. No change in , swallowing or any limb weakness. Blood pressure was running high in the ER. Subsequently the following day patient again trouble with his speech repeat computed tomography scan was negative. Per neurology patient is found to have Homonymous right lower quadrant quadrantanopsia. Subsequently patient became confused hence KAY was not done. Patient 2 days ago started on seroquel. Today- at the bedside. Patient has been intermittently confused. He received Seroquel yesterday. Sleepy this morning. Has not been eating. Arousable. Review of systems: Cannot be done Active Medications Acetaminophen (Acetaminophen Tab 325 Mg Tab) 650 mg PO Q6HR PRN PRN Reason: Mild Pain or Fever > 100.5 Last Admin: 04/20/20 13:58 Dose: 650 mg Documented by: Al Hydroxide/Mg Hydroxide (Mag Hydrox/Al Hydrox/Simeth 30 Ml Cup) 15 ml PO Q6HR PRN PRN Reason: Indigestion Amlodipine Besylate (Amlodipine 10 Mg Tab) 10 mg PO DAILY [facility] Last Admin: 04/24/20 10:45 Dose: Not Given Documented by: Aspirin (Aspirin 325 Mg Tab) 325 mg PO DAILY [facility] Last Admin: 04/24/20 10:45 Dose: Not Given Documented by: Atorvastatin Calcium (Atorvastatin 40 Mg Tab) 40 mg PO HS [facility] Last Admin: 04/24/20 20:28 Dose: 40 mg Documented by: Calcium Carbonate/Glycine (Calcium Carbonate 500 Mg Chewable) 1,000 mg PO Q4HR PRN PRN Reason: Dyspepsia Clopidogrel Bisulfate (Clopidogrel 75 Mg Tab) 75 mg PO DAILY [facility] Last Admin: 04/24/20 15:10 Dose: 75 mg Documented by: Cyanocobalamin (Cyanocobalamin 1,000 Mcg/Ml 1 Ml Vial) 1,000 mcg IM DAILY [facility] Last Admin: 04/24/20 14:51 Dose: 1,000 mcg Documented by: Famotidine (Famotidine 20 Mg/2 Ml Vial) 10 mg IV Q12HR [facility] Last Admin: 04/24/20 20:28 Dose: 10 mg Documented by: Haloperidol Lactate (Haloperidol Lactate 5 Mg/Ml 1 Ml Vial) 2 mg IM ONCE PRN PRN Reason: Agitation or Acute Psychosis Last Admin: 04/21/20 21:40 Dose: 2 mg Documented by: Haloperidol Lactate (Haloperidol Lactate 5 Mg/Ml 1 Ml Vial) 1 mg IVP Q6HR PRN PRN Reason: Agitation or Acute Psychosis Last Admin: 04/23/20 21:06 Dose: 1 mg Documented by: Hydralazine HCl (Hydralazine Hcl 20 Mg/Ml 1 Ml Vial) 5 mg IVP Q6HR PRN PRN Reason: Blood Pressure - High Dextrose/Sodium Chloride (Dextrose 5%-Ns Iv Soln) 1,000 mls @ 50 mls/hr IV .Q20H [facility] Last Admin: 04/24/20 14:50 Dose: 50 mls/hr Documented by: Piperacillin Sod/Tazobactam (Sod 3.375 gm/ Sodium Chloride) 100 mls @ 25 mls/hr IVPB Q8HR [facility] Last Admin: 04/24/20 14:50 Dose: 25 mls/hr Documented by: Lactulose (Lactulose 20 Gm/30 Ml Cup) 20 gm PO DAILY PRN PRN Reason: Constipation Magnesium Hydroxide (Magnesium Hydroxide 2,400 Mg/10 Ml Cup) 2,400 mg PO DAILY PRN PRN Reason: Constipation Melatonin (Melatonin 5 Mg Tablet) 5 mg PO HS [facility] Last Admin: 04/24/20 20:26 Dose: 5 mg Documented by: Metoprolol Succinate (Metoprolol Succinate (Er) 25 Mg Tab.Er.24h) 25 mg PO DAILY [facility] Last Admin: 04/24/20 10:45 Dose: Not Given Documented by: Naloxone HCl (Naloxone 0.4 Mg/Ml 1 Ml Vial) 0.2 mg IV Q2M PRN PRN Reason: Opioid Reversal Ondansetron HCl (Ondansetron 4 Mg/2 Ml Vial) 4 mg IVP Q8HR PRN PRN Reason: Nausea And Vomiting Prazosin HCl (Prazosin 1 Mg Cap) 2 mg PO TID [facility] Last Admin: 04/24/20 20:27 Dose: 2 mg Documented by: Quetiapine Fumarate (Quetiapine 25 Mg Tab) 12.5 mg PO HS [facility] Last Admin: 04/24/20 20:24 Dose: 12.5 mg Documented by: Temazepam (Temazepam 15 Mg Cap) 15 mg PO HS PRN PRN Reason: Insomnia Last Admin: 04/20/20 23:17 Dose: 15 mg Documented by: Valsartan (Valsartan 80 Mg Tab) 80 mg PO HS [facility] Last Admin: 04/24/20 20:27 Dose: 80 mg Documented by: Valsartan (Valsartan 160 Mg Tab) 160 mg PO DAILY [facility] Last Admin: 04/24/20 10:46 Dose: Not Given Documented by: Physical examination: VITAL SIGNS: 97.3, 72, 18, 160/76, 96% room air GENERAL: Laying in bed, lethargic but arousable EYES: Pupils equal. Conjunctiva normal. HEENT: External appearance of nose and ears normal, oral cavity grossly normal. NECK: JVD not raised; masses not palpable. HEART: First and second heart sounds are normal; no edema. LUNGS: Respiratory rate normal; clear to auscultation. ABDOMEN: Soft, nontender, liver spleen not palpable, no masses palpable. PSYCH: Sleepy NEUROLOGICAL: Cranial nerves grossly intact; no facial asymmetry, a bit slow and finding words. INVESTIGATIONS, reviewed in the clinical context: EEG-showing evidence of encephalopathy White count 11.9 hemoglobin 15.4 potassium 3.3 creatinine 1.09 Potassium 3.3, glucose 204, LDL 145 Computed tomography scan of brain-April 18-no new findings. Repeat computed tomography scan April 21-no focal 2-D echocardiogram-severe concentric LVH, EF 50-55%, Admission testing White count 8.5 hemoglobin 14 platelets 210 potassium 3.3 creatinine 0.93 EKG tracing personally reviewed by me-atrial paced rhythm, right bundle-branch block pattern Chest x-ray film personally reviewed by me-derek womack, no infiltrates CT angiogram the head and neck with contrast-no CTA/C a process Computed tomography scan of the brain unremarkable Assessment: -Recurrent TIA with patient presenting with about 2 hours of unable to find words and some double vision that completely resolved. again patient had similar symptoms. Per neurology - right lower quadrantonopia. Subsequently patient became more lethargic ST could not be done. -Hypertensive urgency -Hyperlipidemia -Permanent pacemaker -Hard of hearing -Metabolic encephalopathy with delirium Plan: Discussed at length with Dr. Maguire / the neurologist. Discussed in detail with the nurse about patient's sleep hygiene. Also discussed with patient and at length at bedside. Proceed from there. Total time spent about 40 minutes with over 30 minutes of discussion.
[2020-04-25] MEDS: PIPERACILLIN-TAZOBACTAM 3.375 GM in SODIUM CHLORIDE 0.9% 100 ML IVPB SCH ×3 (09:15→23:43)
[2020-04-25] MEDS: ASPIRIN 325 MG TAB PO SCH (09:16)
[2020-04-25] MEDS: METOPROLOL SUCCINATE (ER) 25 MG TAB.ER.24H PO SCH (09:16)
[2020-04-25] MEDS: amLODIPine 10 MG TAB PO SCH (09:16)
[2020-04-25] MEDS: CLOPIDOGREL 75 MG TAB PO SCH (09:16)
[2020-04-25] MEDS: FAMOTIDINE 20 MG/2 ML VIAL IV SCH ×2 (09:16→20:08)
[2020-04-25] MEDS: PRAZOSIN 1 MG CAP PO SCH ×3 (09:17→20:07)
[2020-04-25] MEDS: VALSARTAN 160 MG TAB PO SCH (09:18)
[2020-04-25] MEDS: CYANOCOBALAMIN 1,000 MCG/ML 1 ML VIAL IM SCH (09:18)
[2020-04-25 12:25] LABS: HCT 42.2 % (39.0-53.0); HGB 14.3 gm/dL (13.0-17.5); MCH 29.4 pg (25.0-35.0); MCHC 33.9 g/dL (31.0-37.0); MCV 86.9 fL (80.0-100.0); Mean Platelet Volume 9.4; Platelet Count 157 k/uL (150-450); RBC 4.86 m/uL (4.30-5.90); RDW 13.5 % (11.5-15.5); WBC 11.8 k/uL (3.8-10.6)
--- NOTE | 2020-04-25 12:36 | P.PN ---
Subjective Progress Note Date: 04/25/20 Patient was seen at bedside today and he seemed more arousable today compared to the last 4-5 days I have seen him. Objective - Vital Signs Vital signs: Vital Signs Temp 97.4 F L 04/25/20 11:28 Pulse 53 L 04/25/20 11:28 Resp 16 04/25/20 11:28 BP 138/65 04/25/20 11:28 Pulse Ox 95 04/25/20 11:28 Intake & Output 04/24/20 04/25/20 04/25/20 18:59 06:59 18:59 Output Total 0 0 Balance 0 0 Weight 79.5 kg Output: Urine 0 0 Other: Voiding Method Diaper Diaper Incontinent Incontinent # Voids 3 # Bowel Movements 1 - Exam Physical exam was limited because of patient condition. The patient is drowsy but is awakeable to voice. He was able to correctly state his name. Otherwise he was not able to tell me the year or the month. He was able to follow a few simple commands such as a taking his tongue and closing his eyes on command. Unable to assess the language in detail because of his condition. Cranial nerves: The pupils are round equal pupils are round 34 mm bilaterally and reactive to light. Extraocular movement is intact and no nystagmus noted. Facial sensation could not be assessed because of his cooperation. There is no facial weakness noted. Strength: Gait was deferred. The strength bilateral upper extremity the strength was 4+ to 5 minus symmetrically. While lower extremity was a 5 out of 5. Sensation unable to assess. - Labs CBC & Chem 7: 04/24/20 09:52 04/24/20 09:52 Labs: Microbiology - Last 24 Hours (Table) 04/22/20 13:09 Blood Culture - Preliminary Blood No Growth after 48 hours 04/22/20 13:16 Blood Culture - Preliminary Blood No Growth after 48 hours Assessment and Plan Assessment: * Delerium. * Recurrent, crescendo TIAs. * Probable acute to subacute stroke with homonymous right lower quadrantanopia * Leukocytosis * Hypertension * Arrhythmia * Pacemaker * Hard of hearing * Dyslipidemia * Diabetes mellitus Plan: * Patient has presented with acute to subacute CVA with right sided visual field deficits mainly involving the lower quadrant. Patient has developed superimposed recurrent TIAs. Rule out cardioembolic source. * Patient had 2-D echo performed: Mild tricuspid regurgitation present. There is evidence of pulmonary hypertension. The right ventricular systolic pressure as measured by Doppler is 16.57 mmHg. * Patient at present not considered a candidate for TPA, due to: * 1) rapidly improving symptoms, now with minimal deficits (NIHSS 2). * 2) unclear if abnormalities on CT are subacute in nature, as it would contra indicate TPA, and pose hemorrhagic risks. * CTA head and neck were negative. * Because of his worsening mentation the primary team ordered CT of the head on 04/21/20 which was reported as no acute intracranial hemorrhage or midline shift. There is mild to moderate diffuse cerebral atrophy and moderate to advanced chronic small vessel ischemic change along the right side surgical change old and demonstrated. No change from prior studies. * Lipid profie: Low cholesterol 221, LDL 145, HDL 31 and triglyceride of 227. * Cardiology is on board, to consider KAY to rule out embolic source. Cardiology evaluated him and they feel at this time he would not be able to cooperate for KAY. I spoke with the cardiology team they feel they that the KAY will be a little bit difficult to get as an inpatient because of his mentation. I notified them the to consider a loop recorder versus Holter monitor. * Because of recurrent TIAs,/recent CVA, heparin per A. fib protocol was started on 03/18/20. Because of the patient to her recent stroke as well as his recurrent TIAs * I spoke to cardiology team on 04/24/20, and they recommended to the to stop the heparin drip and didn't feel there is a any use of anticoagulation since they do not feel ceferino this is a cardioembolic phenomena. Therefore the heparin drip was stopped. * I spoke with cardiology today regarding the transesophageal cardiogram, and they stated that if the patient's mentation is improved by this coming up Tuesday they'll consider it. * Continue aspirin 325mg and Plavix 75 mg (added on 04/24/2020 --continue it for 21 days). After 21 days patient to stop by the Plavix while to continue on ASA and definitely. Continue Lipitor 40 mg daily. * Telemetry monitoring. No atrial fibrillation or flutter is seen during his stay. * PT OT speech therapy. * Hemoglobin A1c: 6.9 TSH: 2.6 * Ammonia level is less than 9. * EEG: Background slowing suggestive of mild to moderate encephalopathy. No focal slowing, epileptiform discharge or seizure. * C. diff: Negative There is no neurology service over the weekend. If needed then perfect serve. The plan was discussed with Dr. Jose Luis Maguire M.D. Neuro-hospitalist
[2020-04-25] MEDS ORDERED: Potassium Replacement Protocol 1 EACH MISC MISCELLANE PRN (12:46)
[2020-04-25] MEDS: POTASSIUM CHLORIDE ER 20 MEQ TAB.ER PO SCH ×2 (12:53→13:59)
[2020-04-25] MEDS: DEXTROSE 5%-0.9% NACL 1,000 ML IV SCH (15:46)
[2020-04-25 18:51] LABS: HCT 44.4 % (39.0-53.0); HGB 14.6 gm/dL (13.0-17.5); MCH 29.1 pg (25.0-35.0); MCHC 32.9 g/dL (31.0-37.0); MCV 88.5 fL (80.0-100.0); Mean Platelet Volume 9.7; Platelet Count 156 k/uL (150-450); RBC 5.02 m/uL (4.30-5.90); RDW 13.4 % (11.5-15.5); WBC 11.1 k/uL (3.8-10.6)
--- NOTE | 2020-04-25 19:42 | P.PN ---
Progress Note - Text Progress Note Date: 04/25/20 Chief Complaint: Loss of speech and double vision History of presenting complaint: This is a pleasant 79-year-old patient of Dr. Rico Robb. Chronic stable medical conditions include hypertension, hyperlipidemia, hard of hearing, permanent pacemaker. Yesterday at 4 PM he was sitting in his backyard with his dog near the pond. There was squirrel running around. He suddenly noticed that he was not able to speak not describe a squirrel. His son happened to,,, white and then he found theword for him. Patient went inside the house He also noticed some double vision. The symptoms lasted for about 1-2 hours. Then completely resolved. Today morning he decided to go to his transportation dispatcher. Was sent into the ER. Patient had no other focal symptoms. No change in , swallowing or any limb weakness. Blood pressure was running high in the ER. Subsequently the following day patient again trouble with his speech repeat computed tomography scan was negative. Per neurology patient is found to have Homonymous right lower quadrant quadrantanopsia. Subsequently patient became confused hence KAY was not done. Patient 2 days ago started on seroquel 50 mg the morning.. Then changed to 12.5 mg at night. Today-sleep hygiene cycle was initiated. Patient doing better today. Communicating better. at the bedside. Did eat some. Did walk to the bathroom with support. Had some blood in the stool. GI consulted. Review of systems: Was done for constitutional, cardiovascular, GI, pulmonary. relevant finding as above Active Medications Acetaminophen (Acetaminophen Tab 325 Mg Tab) 650 mg PO Q6HR PRN PRN Reason: Mild Pain or Fever > 100.5 Last Admin: 04/20/20 13:58 Dose: 650 mg Documented by: Al Hydroxide/Mg Hydroxide (Mag Hydrox/Al Hydrox/Simeth 30 Ml Cup) 15 ml PO Q6HR PRN PRN Reason: Indigestion Amlodipine Besylate (Amlodipine 10 Mg Tab) 10 mg PO DAILY [facility] Last Admin: 04/25/20 09:16 Dose: 10 mg Documented by: Aspirin (Aspirin 325 Mg Tab) 325 mg PO DAILY [facility] Last Admin: 04/25/20 09:16 Dose: 325 mg Documented by: Atorvastatin Calcium (Atorvastatin 40 Mg Tab) 40 mg PO [facility] Last Admin: 04/24/20 20:28 Dose: 40 mg Documented by: Calcium Carbonate/Glycine (Calcium Carbonate 500 Mg Chewable) 1,000 mg PO Q4HR PRN PRN Reason: Dyspepsia Clopidogrel Bisulfate (Clopidogrel 75 Mg Tab) 75 mg PO DAILY [facility] Last Admin: 04/25/20 09:16 Dose: 75 mg Documented by: Cyanocobalamin (Cyanocobalamin 1,000 Mcg/Ml 1 Ml Vial) 1,000 mcg IM DAILY [facility] Last Admin: 04/25/20 09:18 Dose: 1,000 mcg Documented by: Famotidine (Famotidine 20 Mg/2 Ml Vial) 10 mg IV Q12HR [facility] Last Admin: 04/25/20 09:16 Dose: 10 mg Documented by: Haloperidol Lactate (Haloperidol Lactate 5 Mg/Ml 1 Ml Vial) 2 mg IM ONCE PRN PRN Reason: Agitation or Acute Psychosis Last Admin: 04/21/20 21:40 Dose: 2 mg Documented by: Haloperidol Lactate (Haloperidol Lactate 5 Mg/Ml 1 Ml Vial) 1 mg IVP Q6HR PRN PRN Reason: Agitation or Acute Psychosis Last Admin: 04/23/20 21:06 Dose: 1 mg Documented by: Hydralazine HCl (Hydralazine Hcl 20 Mg/Ml 1 Ml Vial) 5 mg IVP Q6HR PRN PRN Reason: Blood Pressure - High Hydrocortisone (Hydrocortisone 2.5% Rectal Cream 30 Gm Tube) 1 applic RECTAL BID [facility] Dextrose/Sodium Chloride (Dextrose 5%-Ns Iv Soln) 1,000 mls @ 50 mls/hr IV .Q20H [facility] Last Admin: 04/25/20 15:46 Dose: 50 mls/hr Documented by: Piperacillin Sod/Tazobactam (Sod 3.375 gm/ Sodium Chloride) 100 mls @ 25 mls/hr IVPB Q8HR [facility] Last Admin: 04/25/20 15:43 Dose: 25 mls/hr Documented by: Lactulose (Lactulose 20 Gm/30 Ml Cup) 20 gm PO DAILY PRN PRN Reason: Constipation Magnesium Hydroxide (Magnesium Hydroxide 2,400 Mg/10 Ml Cup) 2,400 mg PO DAILY PRN PRN Reason: Constipation Melatonin (Melatonin 5 Mg Tablet) 5 mg PO HS [facility] Last Admin: 04/24/20 20:26 Dose: 5 mg Documented by: Metoprolol Succinate (Metoprolol Succinate (Er) 25 Mg Tab.Er.24h) 25 mg PO DAILY [facility] Last Admin: 04/25/20 09:16 Dose: 25 mg Documented by: Miscellaneous Information (Potassium Replacement Protocol 1 [facility]) 1 each MISCELLANE DAILY PRN; Protocol PRN Reason: Per Protocol Naloxone HCl (Naloxone 0.4 Mg/Ml 1 Ml Vial) 0.2 mg IV Q2M PRN PRN Reason: Opioid Reversal Ondansetron HCl (Ondansetron 4 Mg/2 Ml Vial) 4 mg IVP Q8HR PRN PRN Reason: Nausea And Vomiting Prazosin HCl (Prazosin 1 Mg Cap) 2 mg PO TID [facility] Last Admin: 04/25/20 15:43 Dose: 2 mg Documented by: Quetiapine Fumarate (Quetiapine 25 Mg Tab) 12.5 mg PO HS [facility] Last Admin: 04/24/20 20:24 Dose: 12.5 mg Documented by: Temazepam (Temazepam 15 Mg Cap) 15 mg PO HS PRN PRN Reason: Insomnia Last Admin: 04/20/20 23:17 Dose: 15 mg Documented by: Valsartan (Valsartan 80 Mg Tab) 80 mg PO HS [facility] Last Admin: 04/24/20 20:27 Dose: 80 mg Documented by: Valsartan (Valsartan 160 Mg Tab) 160 mg PO DAILY [facility] Last Admin: 04/25/20 09:18 Dose: 160 mg Documented by: Physical examination: VITAL SIGNS: 97.4, 53, 16, 138 / 65, 95% on room air GENERAL: Laying in bed, more arousable today. EYES: Pupils equal. Conjunctiva normal. HEENT: External appearance of nose and ears normal, oral cavity grossly normal. NECK: JVD not raised; masses not palpable. HEART: First and second heart sounds are normal; no edema. LUNGS: Respiratory rate normal; clear to auscultation. ABDOMEN: Soft, nontender, liver spleen not palpable, no masses palpable. PSYCH: Able to answer questions though dozes off NEUROLOGICAL: Cranial nerves grossly intact; no facial asymmetry, a bit slow and finding words. INVESTIGATIONS, reviewed in the clinical context: White count 11.1 hemoglobin 14.6 potassium 3. Placed 3.8 Previous testing EEG-showing evidence of encephalopathy White count 11.9 hemoglobin 15.4 potassium 3.3 creatinine 1.09 Potassium 3.3, glucose 204, LDL 145 Computed tomography scan of brain-April 18-no new findings. Repeat computed tomography scan April 21-no focal 2-D echocardiogram-severe concentric LVH, EF 50-55%, Admission testing White count 8.5 hemoglobin 14 platelets 210 potassium 3.3 creatinine 0.93 EKG tracing personally reviewed by me-atrial paced rhythm, right bundle-branch block pattern Chest x-ray film personally reviewed by me-cardia megaly, no infiltrates CT angiogram the head and neck with contrast-no CTA/C a process Computed tomography scan of the brain unremarkable Assessment: -Recurrent TIA with patient presenting with about 2 hours of unable to find words and some double vision that completely resolved. again patient had similar symptoms. Per neurology - right lower quadrantonopia. Subsequently patient became more lethargic KAY could not be done. -Hypertensive urgency -Hyperlipidemia -Permanent pacemaker -Hard of hearing -Metabolic encephalopathy with delirium, multifactorial -Lower GI bleed. Internal hemorrhoids versus diverticular-new diagnosis Plan: Discussed with Dr. Maguire / the neurologist. Also discussed with the . Spoke to the nurse. Reinforce and make sure sleep hygiene cycle is maintained. We'll see how the patient does over the next 2 days. Then decide about doing KAY. GI consulted. Follow H&H
[2020-04-25] MEDS: VALSARTAN 80 MG TAB PO SCH (20:08)
[2020-04-25] MEDS: ATORVASTATIN 40 MG TAB PO SCH (20:08)
[2020-04-25] MEDS: QUEtiapine 25 MG TAB PO SCH (20:08)
[2020-04-25] MEDS: HYDROCORTISONE 2.5% RECTAL CREAM 30 GM TUBE RECTAL SCH (20:08)
[2020-04-25] MEDS: MELATONIN 5 MG TABLET PO SCH (20:08)
--- NOTE | 2020-04-25 21:53 | CONS ---
CONSULTATION DATE OF DICTATION: 04/25/2020 REASON FOR CONSULTATION: Rectal bleeding. HISTORY OF PRESENT ILLNESS: The patient is an 79-year-old pleasant white male with history of hypertension, hyperlipidemia and cardiac arrhythmia, status post pacemaker implantation, who was admitted to the hospital with a CVA/TIA. The patient has been in the hospital for the last one week's duration. He has been on IV heparin drip as well as aspirin and Plavix. Apparently this morning he had an episode of bright red blood per rectum and hence we are consulted in regard to this issue. As per the patient, he had some constipation and was straining at stool and he noticed a significant amount of bright red blood per rectum. Since then he did not have any further episodes of bleeding. He denies any abdominal pain, reports no nausea, vomiting. No similar symptoms in the past. He recalls having colonoscopy many years ago at [facility] and, according to his , it was within normal limits. PAST MEDICAL HISTORY: His past medical history is significant for hypertension, hyperlipidemia, recent CVA, history of gastroesophageal reflux disease. MEDICATIONS: Medications at home include Toprol, valsartan, Diovan, Norvasc, Pepcid p.r.n. ALLERGIES: NONE. SOCIAL HISTORY: No smoking. No alcohol use. PAST SURGICAL HISTORY: Pacemaker implantation, ear surgery. FAMILY HISTORY: Unremarkable. REVIEW OF SYSTEMS: CARDIOPULMONARY: He denies any chest pain or shortness of breath. GENITOURINARY: No dysuria or hematuria. MUSCULOSKELETAL: Unremarkable. SKIN: Unremarkable. ENDOCRINE: Unremarkable. PSYCHIATRIC: Unremarkable. NEUROLOGY: Unremarkable other than recent CVA. CONSTITUTIONAL: No recent weight loss. No fever, chills, night sweats. PHYSICAL EXAMINATION: He appears comfortable. No apparent distress. Vital signs are stable. Blood pressure is 138/63, pulse rate 64, temperature 98.7. HEENT examination unremarkable. Conjunctivae pink. Sclerae anicteric. Oral cavity no lesions. NECK: No JVD or lymph node enlargement. CHEST: Clear to auscultation. HEART: Regular rate and rhythm. ABDOMEN: Soft. It was non-tender, non-distended. Bowel sounds are positive. No organomegaly. EXTREMITIES: No pedal edema. SKIN: No rashes. NEUROLOGIC: Alert and oriented x3. No focal deficits. LABS: WBC 11.8, hemoglobin 14.3, platelets 157. Rest of the labs are within normal limits. PTT was 51.2. Stool C difficile toxin was negative. IMPRESSION: 1. Rectal bleeding, one episode his morning; bright red blood per rectum, possibly bleeding from internal hemorrhoids. Cannot rule out other colonic pathology. 2. Recent cerebrovascular accident, transient ischemic attack, presently on IV heparin as well as aspirin and Plavix. Neurology is following the patient closely. 3. History of hypertension. 4. Possible aspiration pneumonia, on broad-spectrum antibiotics. 5. Altered mental status secondary to metabolic encephalopathy. 6. Uncontrolled hypertension, which is doing better. RECOMMENDATIONS: 1. In regard to the rectal bleeding, since he had only one episode of bleeding and hemoglobin remains stable, we will continue to watch him closely. 2. Continue with aspirin, Plavix and anticoagulation for now. 3. Monitor CBC on a daily basis. 4. Continue with symptomatic and supportive care. 5. No plans on any endoscopic intervention at the present time. We will consider this based on his clinical course and we will follow him closely during his hospital stay. Thank you for this consultation. SAKSHI / JACOB: [id number] /
[2020-04-26] MEDS: DEXTROSE 5%-0.9% NACL 1,000 ML IV SCH (05:26)
[2020-04-26 08:55] LABS: Basophils % (A) 0 %; Eosinophils # (A) 0.1 k/uL (0-0.7); Eosinophils % (A) 1 %; HCT 43.3 % (39.0-53.0); HGB 14.4 gm/dL (13.0-17.5); Lymphocytes # (A) 1.9 k/uL (1.0-4.8); Lymphocytes % (A) 18 %; MCH 28.9 pg (25.0-35.0); MCHC 33.4 g/dL (31.0-37.0); MCV 86.6 fL (80.0-100.0); Mean Platelet Volume 9.7; Monocytes # (A) 0.6 k/uL (0-1.0); Monocytes % (A) 6 %; Neutrophils # (A) 8.1 k/uL (1.3-7.7); Neutrophils % (A) 74 %; Platelet Count 179 k/uL (150-450); RDW 13.8 % (11.5-15.5); WBC 10.9 k/uL (3.8-10.6)
[2020-04-26] MEDS: PIPERACILLIN-TAZOBACTAM 3.375 GM in SODIUM CHLORIDE 0.9% 100 ML IVPB SCH ×2 (10:04→16:50)
[2020-04-26] MEDS: CLOPIDOGREL 75 MG TAB PO SCH (10:05)
[2020-04-26] MEDS: amLODIPine 10 MG TAB PO SCH (10:05)
[2020-04-26] MEDS: METOPROLOL SUCCINATE (ER) 25 MG TAB.ER.24H PO SCH (10:05)
[2020-04-26] MEDS: ASPIRIN 325 MG TAB PO SCH (10:05)
[2020-04-26] MEDS: PRAZOSIN 1 MG CAP PO SCH ×3 (10:05→20:17)
[2020-04-26] MEDS: VALSARTAN 160 MG TAB PO SCH (10:06)
[2020-04-26] MEDS: HYDROCORTISONE 2.5% RECTAL CREAM 30 GM TUBE RECTAL SCH ×2 (10:06→20:17)
[2020-04-26] MEDS: FAMOTIDINE 20 MG/2 ML VIAL IV SCH (10:07)
--- NOTE | 2020-04-26 11:04 | PN ---
PROGRESS NOTE DATE OF SERVICE: 04/26/2020 Patient is an 79-year-old pleasant white male who was admitted to the hospital with CVA and presently on aspirin and Plavix. He had an episode of rectal bleeding yesterday and hence we are consulted. Patient is doing better. As per the nursing staff, he did not have any bowel movements since yesterday. He remains on dual antiplatelet therapy at the present time. He reports no abdominal pain. He is slightly confused. He reports no nausea, no vomiting. His repeat hemoglobin last night was 14.5 g/dL. PHYSICAL EXAMINATION: He appears comfortable. No apparent distress. Vital signs are stable. Blood pressure is 155/72, pulse rate 80, temperature 97.5. HEENT examination unremarkable. Conjunctivae pink. Sclerae anicteric. Oral cavity no lesions. NECK: No JVD or lymph node enlargement. CHEST: Clear to auscultation. HEART: Regular rate and rhythm. ABDOMEN: Soft. Bowel sounds are positive. No organomegaly. EXTREMITIES: No pedal edema. NEURO: He has some weakness and some aphasia noted. LABS: WBC 10.9, hemoglobin 14.4, platelets normal. Basic metabolic panel is within normal limits. IMPRESSION: 1. Rectal bleeding, one episode yesterday, possibly related to bleeding from internal hemorrhoids. Presently on Anusol suppository, had no further episodes of bleeding. Hemoglobin stable at 14.5 g/dL. 2. Recent transient ischemic attack/cerebrovascular accident, which is improving significantly. Presently on aspirin and Plavix. 3. Uncontrolled hypertension, resolved. 4. History of cardiac pacemaker implantation in the past. 5. Altered mental status, improving. RECOMMENDATIONS: 1. Continue with Anusol suppositories once at bedtime. 2. Avoid straining and constipation. 3. Start him on osmotic laxative with MiraLAX one scoop as needed. 4. Continue with aspirin and Plavix for now. 5. Monitor CBC daily. 6. No plans on any endoscopic intervention at the present time. We will follow with you closely. Thank you for this consultation. MMODL / IJN: [id number] /
[2020-04-26] MEDS: CYANOCOBALAMIN 1,000 MCG/ML 1 ML VIAL IM SCH (11:42)
--- NOTE | 2020-04-26 16:19 | P.PN ---
Progress Note - Text Progress Note Date: 04/26/20 Chief Complaint: Loss of speech and double vision History of presenting complaint: This is a pleasant 79-year-old patient of Dr. Rico Robb. Chronic stable medical conditions include hypertension, hyperlipidemia, hard of hearing, permanent pacemaker. Yesterday at 4 PM he was sitting in his backyard with his dog near the pond. There was squirrel running around. He suddenly noticed that he was not able to speak not describe a squirrel. His son happened to,,, white and then he found theword for him. Patient went inside the house He also noticed some double vision. The symptoms lasted for about 1-2 hours. Then completely resolved. Today morning he decided to go to his optical mechanic. Was sent into the ER. Patient had no other focal symptoms. No change in , swallowing or any limb weakness. Blood pressure was running high in the ER. Subsequently the following day patient again trouble with his speech repeat computed tomography scan was negative. Per neurology patient is found to have Homonymous right lower quadrant quadrantanopsia. Subsequently patient became confused hence KAY was not done. Patient 2 days ago started on seroquel 50 mg the morning.. Then changed to 12.5 mg at night. Today-bit more awake. Committee getting better. Eating better. at the bedside. Review of systems: Was done for constitutional, cardiovascular, GI, pulmonary. relevant finding as above Active Medications Acetaminophen (Acetaminophen Tab 325 Mg Tab) 650 mg PO Q6HR PRN PRN Reason: Mild Pain or Fever > 100.5 Last Admin: 04/20/20 13:58 Dose: 650 mg Documented by: Al Hydroxide/Mg Hydroxide (Mag Hydrox/Al Hydrox/Simeth 30 Ml Cup) 15 ml PO Q6HR PRN PRN Reason: Indigestion Amlodipine Besylate (Amlodipine 10 Mg Tab) 10 mg PO DAILY [facility] Last Admin: 04/26/20 10:05 Dose: 10 mg Documented by: Aspirin (Aspirin 325 Mg Tab) 325 mg PO DAILY [facility] Last Admin: 04/26/20 10:05 Dose: 325 mg Documented by: Atorvastatin Calcium (Atorvastatin 40 Mg Tab) 40 mg PO HS [facility] Last Admin: 04/25/20 20:08 Dose: 40 mg Documented by: Calcium Carbonate/Glycine (Calcium Carbonate 500 Mg Chewable) 1,000 mg PO Q4HR PRN PRN Reason: Dyspepsia Clopidogrel Bisulfate (Clopidogrel 75 Mg Tab) 75 mg PO DAILY [facility] Last Admin: 04/26/20 10:05 Dose: 75 mg Documented by: Cyanocobalamin (Cyanocobalamin 1,000 Mcg/Ml 1 Ml Vial) 1,000 mcg IM DAILY [facility] Last Admin: 04/26/20 11:42 Dose: 1,000 mcg Documented by: Famotidine (Famotidine 20 Mg/2 Ml Vial) 10 mg IV Q12HR [facility] Last Admin: 04/26/20 10:07 Dose: 10 mg Documented by: Haloperidol Lactate (Haloperidol Lactate 5 Mg/Ml 1 Ml Vial) 2 mg IM ONCE PRN PRN Reason: Agitation or Acute Psychosis Last Admin: 04/21/20 21:40 Dose: 2 mg Documented by: Haloperidol Lactate (Haloperidol Lactate 5 Mg/Ml 1 Ml Vial) 1 mg IVP Q6HR PRN PRN Reason: Agitation or Acute Psychosis Last Admin: 04/23/20 21:06 Dose: 1 mg Documented by: Hydralazine HCl (Hydralazine Hcl 20 Mg/Ml 1 Ml Vial) 5 mg IVP Q6HR PRN PRN Reason: Blood Pressure - High Hydrocortisone (Hydrocortisone 2.5% Rectal Cream 30 Gm Tube) 1 applic RECTAL BID [facility] Last Admin: 04/26/20 10:06 Dose: 1 applic Documented by: Dextrose/Sodium Chloride (Dextrose 5%-Ns Iv Soln) 1,000 mls @ 50 mls/hr IV .Q20H [facility] Last Admin: 04/26/20 05:26 Dose: 50 mls/hr Documented by: Piperacillin Sod/Tazobactam (Sod 3.375 gm/ Sodium Chloride) 100 mls @ 25 mls/hr IVPB Q8HR [facility] Last Admin: 04/26/20 10:04 Dose: 25 mls/hr Documented by: Lactulose (Lactulose 20 Gm/30 Ml Cup) 20 gm PO DAILY PRN PRN Reason: Constipation Magnesium Hydroxide (Magnesium Hydroxide 2,400 Mg/10 Ml Cup) 2,400 mg PO DAILY PRN PRN Reason: Constipation Melatonin (Melatonin 5 Mg Tablet) 5 mg PO HS [facility] Last Admin: 04/25/20 20:08 Dose: 5 mg Documented by: Metoprolol Succinate (Metoprolol Succinate (Er) 25 Mg Tab.Er.24h) 25 mg PO DAILY [facility] Last Admin: 04/26/20 10:05 Dose: 25 mg Documented by: Miscellaneous Information (Potassium Replacement Protocol 1 Each Misc) 1 each MISCELLANE DAILY PRN; Protocol PRN Reason: Per Protocol Naloxone HCl (Naloxone 0.4 Mg/Ml 1 Ml Vial) 0.2 mg IV Q2M PRN PRN Reason: Opioid Reversal Ondansetron HCl (Ondansetron 4 Mg/2 Ml Vial) 4 mg IVP Q8HR PRN PRN Reason: Nausea And Vomiting Prazosin HCl (Prazosin 1 Mg Cap) 2 mg PO TID [facility] Last Admin: 04/26/20 10:05 Dose: 2 mg Documented by: Quetiapine Fumarate (Quetiapine 25 Mg Tab) 12.5 mg PO HS [facility] Last Admin: 04/25/20 20:08 Dose: 12.5 mg Documented by: Temazepam (Temazepam 15 Mg Cap) 15 mg PO HS PRN PRN Reason: Insomnia Last Admin: 04/20/20 23:17 Dose: 15 mg Documented by: Valsartan (Valsartan 80 Mg Tab) 80 mg PO HS [facility] Last Admin: 04/25/20 20:08 Dose: 80 mg Documented by: Valsartan (Valsartan 160 Mg Tab) 160 mg PO DAILY [facility] Last Admin: 04/26/20 10:06 Dose: 160 mg Documented by: Physical examination: VITAL SIGNS: 98.8, 74, 18, 191/83, 96% room air GENERAL: Laying in bed, more awake. EYES: Pupils equal. Conjunctiva normal. HEENT: External appearance of nose and ears normal, oral cavity grossly normal. NECK: JVD not raised; masses not palpable. HEART: First and second heart sounds are normal; no edema. LUNGS: Respiratory rate normal; clear to auscultation. ABDOMEN: Soft, nontender, liver spleen not palpable, no masses palpable. PSYCH: Able to answer questions NEUROLOGICAL: Cranial nerves grossly intact; no facial asymmetry, a bit slow and finding words. INVESTIGATIONS, reviewed in the clinical context: White count 10.9 hemoglobin 14.4 Previous testing EEG-showing evidence of encephalopathy White count 11.9 hemoglobin 15.4 potassium 3.3 creatinine 1.09 Potassium 3.3, glucose 204, LDL 145 Computed tomography scan of brain-April 18-no new findings. Repeat computed tomography scan Tanisha 28-no focal 2-D echocardiogram-severe concentric LVH, EF 50-55%, Admission testing White count 8.5 hemoglobin 14 platelets 210 potassium 3.3 creatinine 0.93 EKG tracing personally reviewed by me-atrial paced rhythm, right bundle-branch block pattern Chest x-ray film personally reviewed by me-derek womack, no infiltrates CT angiogram the head and neck with contrast-no CTA/C a process Computed tomography scan of the brain unremarkable Assessment: -Recurrent TIA with patient presenting with about 2 hours of unable to find words and some double vision that completely resolved. again patient had similar symptoms. Per neurology - right lower quadrantonopia. Subsequently patient became more lethargic KAY could not be done. -Hypertensive urgency -Hyperlipidemia -Permanent pacemaker -Hard of hearing -Metabolic encephalopathy with delirium, multifactorial -Lower GI bleed. Internal hemorrhoids versus diverticular-new diagnosis Plan: We'll DC Seroquel at night. Uses Restoril 7.5 mg daily at bedtime. Discussed with .
[2020-04-26] MEDS: VALSARTAN 80 MG TAB PO SCH (20:16)
[2020-04-26] MEDS: MELATONIN 5 MG TABLET PO SCH (20:16)
[2020-04-26] MEDS: ATORVASTATIN 40 MG TAB PO SCH (20:16)
[2020-04-27] MEDS: PIPERACILLIN-TAZOBACTAM 3.375 GM in SODIUM CHLORIDE 0.9% 100 ML IVPB SCH ×3 (00:07→15:52)
[2020-04-27] MEDS: PRAZOSIN 1 MG CAP PO SCH ×3 (07:52→21:47)
[2020-04-27] MEDS: CLOPIDOGREL 75 MG TAB PO SCH (07:53)
[2020-04-27] MEDS: VALSARTAN 160 MG TAB PO SCH (07:53)
[2020-04-27] MEDS: ASPIRIN 81 MG PO SCH (07:53)
[2020-04-27] MEDS: amLODIPine 10 MG TAB PO SCH (07:53)
[2020-04-27] MEDS: HYDROCORTISONE 2.5% RECTAL CREAM 30 GM TUBE RECTAL SCH ×2 (07:54→21:47)
[2020-04-27] MEDS: CYANOCOBALAMIN 1,000 MCG/ML 1 ML VIAL IM SCH (07:54)
[2020-04-27] MEDS ORDERED: METOPROLOL TARTRATE 25 MG TAB PO SCH (09:00)
--- NOTE | 2020-04-27 13:27 | PN ---
PROGRESS NOTE DATE OF SERVICE: 04/27/2020 Patient is an 79-year-old pleasant white male admitted to the hospital with CVA/TIA. He has recovered significantly. He is doing much better. He had an episode of rectal bleeding 2 days ago, but as per the nursing staff, there was no further bleeding noted. He remains on aspirin and Plavix for recent CVA. He denies any abdominal pain. No new symptoms. PHYSICAL EXAMINATION: He appears comfortable. VITAL SIGNS: Stable. Blood pressure is 192/81, pulse is 55, temperature 98.1. HEENT examination unremarkable. Conjunctivae pink. Sclerae anicteric. Oral cavity, no lesions. NECK: No JVD or lymph node enlargement. CHEST was clear auscultation. HEART: Regular rate and rhythm. ABDOMEN: Soft, nontender, nondistended. Bowel sounds are positive. EXTREMITIES: No pedal edema. NEURO: No focal deficits. LABS: From today WBC 10.9, hemoglobin 14.4, platelets normal. IMPRESSION: 1. One episode of rectal bleeding 2 days ago, possibly hemorrhoidal in nature. The patient had no further episodes of bleeding. He apparently did have a normal bowel movement this morning. Hemoglobin stable at 14 g/dL. 2. History of cerebrovascular accident/transient ischemic attack, presently on Plavix. 3. Uncontrolled hypertension, better today. RECOMMENDATIONS: 1. Continue with aspirin and Plavix for now. 2. Continue with Anusol suppositories as needed. 3. Avoid straining and constipation. 4. Continue with lactulose for constipation. 5. We will follow with you closely. Thank you for this consultation. MMODL / IJN: [id number] /
--- NOTE | 2020-04-27 16:46 | P.PN ---
Progress Note - Text Progress Note Date: 04/27/20 Chief Complaint: Loss of speech and double vision History of presenting complaint: This is a pleasant 79-year-old patient of Dr. Rico Robb. Chronic stable medical conditions include hypertension, hyperlipidemia, hard of hearing, permanent pacemaker. Yesterday at 4 PM he was sitting in his backyard with his dog near the pond. There was squirrel running around. He suddenly noticed that he was not able to speak not describe a squirrel. His son happened to,,, white and then he found theword for him. Patient went inside the house He also noticed some double vision. The symptoms lasted for about 1-2 hours. Then completely resolved. Today morning he decided to go to his elderly sitter. Was sent into the ER. Patient had no other focal symptoms. No change in , swallowing or any limb weakness. Blood pressure was running high in the ER. Subsequently the following day patient again trouble with his speech repeat computed tomography scan was negative. Per neurology patient is found to have Homonymous right lower quadrant quadrantanopsia. Subsequently patient became confused hence KAY was not done. Patient 2 days ago started on seroquel 50 mg the morning.. Then changed to 12.5 mg at night. Then discontinued. Patient felt to 1 episode of rectal hemorrhoids bleeding. Seen by GI. Not any further intervention. Today-eating better., Communicating better. Speech better. Review of systems: Was done for constitutional, cardiovascular, GI, pulmonary. relevant finding as above Active Medications Acetaminophen (Acetaminophen Tab 325 Mg Tab) 650 mg PO Q6HR PRN PRN Reason: Mild Pain or Fever > 100.5 Last Admin: 04/20/20 13:58 Dose: 650 mg Documented by: Al Hydroxide/Mg Hydroxide (Mag Hydrox/Al Hydrox/Simeth 30 Ml Cup) 15 ml PO Q6HR PRN PRN Reason: Indigestion Amlodipine Besylate (Amlodipine 10 Mg Tab) 10 mg PO DAILY [facility] Last Admin: 04/27/20 07:53 Dose: 10 mg Documented by: Aspirin (Aspirin 81 Mg) 81 mg PO DAILY [facility] Last Admin: 04/27/20 07:53 Dose: 81 mg Documented by: Atorvastatin Calcium (Atorvastatin 40 Mg Tab) 40 mg PO HS [facility] Last Admin: 04/26/20 20:16 Dose: 40 mg Documented by: Calcium Carbonate/Glycine (Calcium Carbonate 500 Mg Chewable) 1,000 mg PO Q4HR PRN PRN Reason: Dyspepsia Clopidogrel Bisulfate (Clopidogrel 75 Mg Tab) 75 mg PO DAILY [facility] Last Admin: 04/27/20 07:53 Dose: 75 mg Documented by: Cyanocobalamin (Cyanocobalamin 1,000 Mcg/Ml 1 Ml Vial) 1,000 mcg IM DAILY [facility] Last Admin: 04/27/20 07:54 Dose: 1,000 mcg Documented by: Hydralazine HCl (Hydralazine Hcl 20 Mg/Ml 1 Ml Vial) 5 mg IVP Q6HR PRN PRN Reason: Blood Pressure - High Hydrocortisone (Hydrocortisone 2.5% Rectal Cream 30 Gm Tube) 1 applic RECTAL BID [facility] Last Admin: 04/27/20 07:54 Dose: 1 applic Documented by: Piperacillin Sod/Tazobactam (Sod 3.375 gm/ Sodium Chloride) 100 mls @ 25 mls/hr IVPB Q8HR [facility] Last Admin: 04/27/20 15:52 Dose: 25 mls/hr Documented by: Lactulose (Lactulose 20 Gm/30 Ml Cup) 20 gm PO DAILY PRN PRN Reason: Constipation Magnesium Hydroxide (Magnesium Hydroxide 2,400 Mg/10 Ml Cup) 2,400 mg PO DAILY PRN PRN Reason: Constipation Melatonin (Melatonin 5 Mg Tablet) 5 mg PO [facility] Last Admin: 04/26/20 20:16 Dose: 5 mg Documented by: Metoprolol Tartrate (Metoprolol Tartrate 25 Mg Tab) 25 mg PO BID [facility] Last Admin: 04/27/20 07:53 Dose: 25 mg Documented by: Miscellaneous Information (Potassium Replacement Protocol 1 Each Misc) 1 each MISCELLANE DAILY PRN; Protocol PRN Reason: Per Protocol Naloxone HCl (Naloxone 0.4 Mg/Ml 1 Ml Vial) 0.2 mg IV Q2M PRN PRN Reason: Opioid Reversal Ondansetron HCl (Ondansetron 4 Mg/2 Ml Vial) 4 mg IVP Q8HR PRN PRN Reason: Nausea And Vomiting Prazosin HCl (Prazosin 1 Mg Cap) 2 mg PO TID [facility] Last Admin: 04/27/20 15:55 Dose: 2 mg Documented by: Valsartan (Valsartan 80 Mg Tab) 80 mg PO [facility] Last Admin: 10/03/20 20:16 Dose: 80 mg Documented by: Valsartan (Valsartan 160 Mg Tab) 160 mg PO DAILY [facility] Last Admin: 04/27/20 07:53 Dose: 160 mg Documented by: Physical examination: VITAL SIGNS: 98, 79, 16, 156/64, 94% on room air GENERAL: Laying in bed, EYES: Pupils equal. Conjunctiva normal. HEENT: External appearance of nose and ears normal, oral cavity grossly normal. NECK: JVD not raised; masses not palpable. HEART: First and second heart sounds are normal; no edema. LUNGS: Respiratory rate normal; clear to auscultation. ABDOMEN: Soft, nontender, liver spleen not palpable, no masses palpable. PSYCH: Able to answer questions NEUROLOGICAL: Cranial nerves grossly intact; no facial asymmetry, a bit slow and finding words. INVESTIGATIONS, reviewed in the clinical context: White count 10.9 hemoglobin 14.4 Previous testing EEG-showing evidence of encephalopathy White count 11.9 hemoglobin 15.4 potassium 3.3 creatinine 1.09 Potassium 3.3, glucose 204, LDL 145 Computed tomography scan of brain-April 18-no new findings. Repeat computed tomography scan April 21-no focal 2-D echocardiogram-severe concentric LVH, EF 50-55%, Admission testing White count 8.5 hemoglobin 14 platelets 210 potassium 3.3 creatinine 0.93 EKG tracing personally reviewed by me-atrial paced rhythm, right bundle-branch block pattern Chest x-ray film personally reviewed by me-cardiomegaly, no infiltrates CT angiogram the head and neck with contrast-no CTA/C a process Computed tomography scan of the brain unremarkable Assessment: -Recurrent TIA with patient presenting with about 2 hours of unable to find words and some double vision that completely resolved. again patient had similar symptoms. Per neurology - right lower quadrantonopia. Subsequently patient became more lethargic KAY could not be done. -Hypertensive urgency -Hyperlipidemia -Permanent pacemaker -Hard of hearing -Metabolic encephalopathy with delirium, multifactorial -Lower GI bleed. Internal hemorrhoids versus diverticular-new diagnosis Plan: Seroquel was discontinued yesterday. Cutback melatonin to 3 mg daily at bedtime. DC Zosyn. Improving. Will need KAY.
[2020-04-27] MEDS: METOPROLOL TARTRATE 25 MG TAB PO SCH ×2 (17:36→21:47)
[2020-04-27] MEDS: VALSARTAN 80 MG TAB PO SCH (21:47)
[2020-04-27] MEDS: MELATONIN 3 MG TABLET PO SCH (21:47)
[2020-04-27] MEDS: ATORVASTATIN 40 MG TAB PO SCH (21:47)
[2020-04-28] MEDS: ASPIRIN 81 MG PO SCH (08:55)
[2020-04-28] MEDS: CLOPIDOGREL 75 MG TAB PO SCH (08:55)
[2020-04-28] MEDS: amLODIPine 10 MG TAB PO SCH (08:55)
[2020-04-28] MEDS: METOPROLOL TARTRATE 25 MG TAB PO SCH ×3 (08:55→21:02)
[2020-04-28] MEDS: HYDROCORTISONE 2.5% RECTAL CREAM 30 GM TUBE RECTAL SCH ×2 (08:56→20:35)
[2020-04-28] MEDS: CYANOCOBALAMIN 1,000 MCG/ML 1 ML VIAL IM SCH (09:01)
[2020-04-28] MEDS: PRAZOSIN 1 MG CAP PO SCH ×3 (09:01→21:02)
[2020-04-28] MEDS: VALSARTAN 160 MG TAB PO SCH (09:01)
--- NOTE | 2020-04-28 14:08 | P.PN ---
Subjective Progress Note Date: 04/28/20 Patient was seen at bedside and he is accompanied by his . feels like he is doing much better. He on chair and having his lunch. No further episodes in the last the to 3 days of restlessness, agitation. Patient stated that he's been walking around to the bathroom and back using walker without any assistance. Objective - Vital Signs Vital signs: Vital Signs Temp 98 F 04/28/20 11:49 Pulse 52 L 04/28/20 11:49 Resp 17 04/28/20 11:49 BP 123/63 04/28/20 11:49 Pulse Ox 97 04/28/20 11:49 Intake & Output 04/27/20 04/28/20 04/28/20 18:59 06:59 18:59 Intake Total 1180 750 Output Total 0 Balance 1180 750 Weight 79.5 kg Intake: IV 60 ns@5 60 Intake, IV Titration 100 Amount Dextrose 5%-0.9% NaCl 1, 0 000 ml @ 50 mls/hr IV . Q20H [facility] Rx#:[id number] Piperacillin-Tazobactam 3 100 .375 gm In Sodium Chloride 0.9% 100 ml @ 25 mls/hr IVPB Q8HR [facility] Rx# :[id number] Oral 1080 690 Output: Urine 0 Other: Voiding Method Diaper Toilet Toilet Incontinent # Voids 4 1 # Bowel Movements 1 - Exam Neurological examination: Higher mental function: Patient is awake alert oriented to self and he stated that that he is in the hospital. He stated that the year was 1996. He is very slow to respond and had to ask him the questions multiple times. Patient was able to identify watch correctly and pen. He did have some paraphasic areas. No neglect. Cranial nerves the pupils are round equal (about 34 mm bilaterally) and reactive to light. Visual crowder are homonymous right lower quadrantanopia to confrontation. Extraocular movement is intact and there is no nystagmus noted. Facial sensation is normal to touch throughout. No facial weakness bilaterally. No dysarthria. Tongue is midline and moved [id number] without any difficulty. Motor: Gait is deferred that. The strength is 5 out of 5 throughout. Sensation is normal to touch throughout. Reflexes as 2 positive throughout except at ankles 1+ bilaterally. The plantar is downgoing bilaterally. - Labs CBC & Chem 7: 04/26/20 08:07 04/25/20 18:34 Labs: Microbiology - Last 24 Hours (Table) 04/22/20 13:16 Blood Culture - Preliminary Blood No Growth after 120 hours 04/22/20 13:09 Blood Culture - Preliminary Blood No Growth after 120 hours Assessment and Plan Assessment: * Recurrent, crescendo TIAs. * Probable acute to subacute stroke with homonymous right lower quadrantanopia * Delerium---resolved * Leukocytosis * Hypertension * Arrhythmia * Pacemaker * Hard of hearing * Dyslipidemia * Diabetes mellitus Plan: * Patient has presented with acute to subacute CVA with right sided visual field deficits mainly involving the lower quadrant. Patient has developed superimposed recurrent TIAs. Rule out cardioembolic source. * Patient had 2-D echo performed: Mild tricuspid regurgitation present. There is evidence of pulmonary hypertension. The right ventricular systolic pressure as measured by Doppler is 16.57 mmHg. * Patient at present not considered a candidate for TPA, due to: * 1) rapidly improving symptoms, now with minimal deficits (NIHSS 2). * 2) unclear if abnormalities on CT are subacute in nature, as it would contraindicate TPA, and pose hemorrhagic risks. * CTA head and neck were negative. * Because of his worsening mentation the primary team ordered CT of the head on 04/21/20 which was reported as no acute intracranial hemorrhage or midline shift. There is mild to moderate diffuse cerebral atrophy and moderate to advanced chronic small vessel ischemic change along the right side surgical change old and demonstrated. No change from prior studies. * Lipid profie: Low cholesterol 221, LDL 145, HDL 31 and triglyceride of 227. * Cardiology is on board, to consider KAY to rule out embolic source. Cardiology evaluated him and they feel at this time he would not be able to cooperate for KAY. I spoke with the cardiology team they feel they that the KAY will be a little bit difficult to get as an inpatient because of his mentation. I notified them the to consider a loop recorder versus Holter monitor. * Because of recurrent TIAs,/recent CVA, heparin per A. fib protocol was started on 03/18/20. Because of the patient to her recent stroke as well as his recurrent TIAs * I spoke to cardiology team on 04/24/20, and they recommended to the to stop the heparin drip and didn't feel there is a any use of anticoagulation since they do not feel ceferino this is a cardioembolic phenomena. Therefore the heparin drip was stopped. * Cardiology were notified that the patient's mentation has improved and to get transesophageal echocardiogram. * Continue aspirin 325mg and Plavix 75 mg (added on 04/24/2020 --continue it for 21 days). After 21 days patient to stop by the Plavix while to continue on ASA and definitely. Continue Lipitor 40 mg daily. * Will get MRI of the brain to determine exactly patient's stroke---cannot be done because of his pacemaker. * Telemetry monitoring. No atrial fibrillation or flutter is seen during his stay * PT OT speech therapy. * Hemoglobin A1c: 6.9 TSH: 2.6 * Ammonia level is less than 9. * EEG: Background slowing suggestive of mild to moderate encephalopathy. No focal slowing, epileptiform discharge or seizure. * C. diff: Negative The plan was discussed with the patient and his as well as Dr. Jose Luis Maguire M.D. Neuro-hospitalist Time with Patient: Less than 30
--- NOTE | 2020-04-28 17:04 | P.PN ---
Subjective Progress Note Date: 04/28/20 Principal diagnosis: Rectal bleeding A patient was seen and examined at the bedside. He was recently hospitalized for a CVA TIA and is recovering quite well. He had one episode of rectal bleeding 3-4 days ago, however he has had no further episodes of bleeding noted. He remains on aspirin and Plavix for his recent CVA. He denies any abdominal pain, nausea, or vomiting. He is tolerating a chopped diet, however states he is not eating much due to the taste. Objective - Vital Signs Vital signs: Vital Signs Temp 98 F 04/28/20 11:49 Pulse 77 04/28/20 16:40 Resp 17 04/28/20 11:49 BP 123/63 04/28/20 11:49 Pulse Ox 97 04/28/20 11:49 Intake & Output 04/27/20 04/28/20 04/28/20 18:59 06:59 18:59 Intake Total 1180 750 Output Total 0 Balance 1180 750 Weight 79.5 kg Intake: IV 60 ns@5 60 Intake, IV Titration 100 Amount Dextrose 5%-0.9% NaCl 1, 0 000 ml @ 50 mls/hr IV . Q20H [facility] Rx#:[id number] Piperacillin-Tazobactam 3 100 .375 gm In Sodium Chloride 0.9% 100 ml @ 25 mls/hr IVPB Q8HR [facility] Rx# :[id number] Oral 1080 690 Output: Urine 0 Other: Voiding Method Diaper Toilet Toilet Incontinent # Voids 4 1 3 # Bowel Movements 1 2 - Exam General appearance: The patient is alert, oriented, in no acute distress. HET: Head is normocephalic and atraumatic. Conjunctiva pink. Sclera and icteric. Neck: Supple without lymphadenopathy. Abdomen: Soft, nontender, nondistended with bowel sounds. No guarding or rigidity. Extremities: Normal skin color and turgor. No pedal edema Neurological: No focal deficits. Alert and oriented 3. - Labs CBC & Chem 7: 04/26/20 08:07 04/25/20 18:34 Labs: Microbiology - Last 24 Hours (Table) 04/22/20 13:09 Blood Culture - Final Blood No Growth after 144 hours 04/22/20 13:16 Blood Culture - Final Blood No Growth after 144 hours Assessment and Plan (1) Rectal bleeding Narrative/Plan: The patient had one episode of rectal bleeding 3 days ago, possibly hemorrhoidal in nature. The patient had no further episodes of bleeding since that time. Has been reported he has had a normal bowel movement since. His hemoglobin is stable at 14.4. Hemorrhoidal cream and lactulose have been ordered as needed. Current Visit: Yes Status: Acute Code(s): K62.5 - HEMORRHAGE OF ANUS AND RECTUM SNOMED Code(s): 92342116 (2) TIA (transient ischemic attack) Current Visit: Yes Status: Acute Code(s): G45.9 - TRANSIENT CEREBRAL ISCHEMIC ATTACK, UNSPECIFIED SNOMED Code(s): 500875413 Plan: 1. Continue with aspirin and Plavix 2. Continue with Anusol suppositories as needed 3. Lactulose as needed for constipation 4. Avoid straining and constipation We will sign off at this time, please do not hesitate to contact us with any future concerns. The impression and plan of care has been dictated as directed. I performed a history and examination of this patient, discussed the same with the dictator. I agree with the dictator's note ,documented as a scribe. Any additional findings or plans will be noted.
--- NOTE | 2020-04-28 17:11 | P.PN ---
Progress Note - Text Progress Note Date: 04/28/20 Chief Complaint: Loss of speech and double vision History of presenting complaint: This is a pleasant 79-year-old patient of Dr. Rico Robb. Chronic stable medical conditions include hypertension, hyperlipidemia, hard of hearing, permanent pacemaker. Yesterday at 4 PM he was sitting in his backyard with his dog near the pond. There was squirrel running around. He suddenly noticed that he was not able to speak not describe a squirrel. His son happened to,,, white and then he found theword for him. Patient went inside the house He also noticed some double vision. The symptoms lasted for about 1-2 hours. Then completely resolved. 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 Was sent into the ER. Patient had no other focal symptoms. No change in , swallowing or any limb weakness. Blood pressure was running high in the ER. Subsequently the following day patient again trouble with his speech repeat computed tomography scan was negative. Per neurology patient is found to have Homonymous right lower quadrant quadrantanopsia. Subsequently patient became confused hence KAY was not done. Patient 2 days ago started on seroquel 50 mg the morning.. Then changed to 12.5 mg at night. Then discontinued. Patient felt to 1 episode of rectal hemorrhoids bleeding. Seen by GI. Not any further intervention. Today-sitting up in a chair. Eating well. Communicating well Review of systems: Was done for constitutional, cardiovascular, GI, pulmonary. relevant finding as above Active Medications Acetaminophen (Acetaminophen Tab 325 Mg Tab) 650 mg PO Q6HR PRN PRN Reason: Mild Pain or Fever > 100.5 Last Admin: 04/20/20 13:58 Dose: 650 mg Documented by: Al Hydroxide/Mg Hydroxide (Mag Hydrox/Al Hydrox/Simeth 30 Ml Cup) 15 ml PO Q6HR PRN PRN Reason: Indigestion Amlodipine Besylate (Amlodipine 10 Mg Tab) 10 mg PO DAILY [facility] Last Admin: 04/28/20 08:55 Dose: 10 mg Documented by: Aspirin (Aspirin 81 Mg) 81 mg PO DAILY [facility] Last Admin: 04/28/20 08:55 Dose: 81 mg Documented by: Atorvastatin Calcium (Atorvastatin 40 Mg Tab) 40 mg PO [facility] Last Admin: 04/27/20 21:47 Dose: 40 mg Documented by: Calcium Carbonate/Glycine (Calcium Carbonate 500 Mg Chewable) 1,000 mg PO Q4HR PRN PRN Reason: Dyspepsia Clopidogrel Bisulfate (Clopidogrel 75 Mg Tab) 75 mg PO DAILY [facility] Last Admin: 04/28/20 08:55 Dose: 75 mg Documented by: Cyanocobalamin (Cyanocobalamin 1,000 Mcg/Ml 1 Ml Vial) 1,000 mcg IM DAILY [facility] Last Admin: 04/28/20 09:01 Dose: 1,000 mcg Documented by: Hydralazine HCl (Hydralazine Hcl 20 Mg/Ml 1 Ml Vial) 5 mg IVP Q6HR PRN PRN Reason: Blood Pressure - High Hydrocortisone (Hydrocortisone 2.5% Rectal Cream 30 Gm Tube) 1 applic RECTAL BID [facility] Last Admin: 04/28/20 08:56 Dose: 1 applic Documented by: Lactulose (Lactulose 20 Gm/30 Ml Cup) 20 gm PO DAILY PRN PRN Reason: Constipation Magnesium Hydroxide (Magnesium Hydroxide 2,400 Mg/10 Ml Cup) 2,400 mg PO DAILY PRN PRN Reason: Constipation Melatonin (Melatonin 3 Mg Tablet) 3 mg PO [facility] Last Admin: 04/27/20 21:47 Dose: 3 mg Documented by: Metoprolol Tartrate (Metoprolol Tartrate 25 Mg Tab) 25 mg PO TID [facility] Last Admin: 04/28/20 16:41 Dose: 25 mg Documented by: Miscellaneous Information (Potassium Replacement Protocol 1 Each Misc) 1 each MISCELLANE DAILY PRN; Protocol PRN Reason: Per Protocol Naloxone HCl (Naloxone 0.4 Mg/Ml 1 Ml Vial) 0.2 mg IV Q2M PRN PRN Reason: Opioid Reversal Ondansetron HCl (Ondansetron 4 Mg/2 Ml Vial) 4 mg IVP Q8HR PRN PRN Reason: Nausea And Vomiting Prazosin HCl (Prazosin 1 Mg Cap) 2 mg PO TID [facility] Last Admin: 04/28/20 16:41 Dose: 2 mg Documented by: Valsartan (Valsartan 80 Mg Tab) 80 mg PO [facility] Last Admin: 04/27/20 21:47 Dose: 80 mg Documented by: Valsartan (Valsartan 160 Mg Tab) 160 mg PO DAILY [facility] Last Admin: 04/28/20 09:01 Dose: 160 mg Documented by: Physical examination: VITAL SIGNS: 98, 52, 17, 123/63, 97% on room air GENERAL: Sitting up in a chair, awake, comfortable EYES: Pupils equal. Conjunctiva normal. HEENT: External appearance of nose and ears normal, oral cavity grossly normal. NECK: JVD not raised; masses not palpable. HEART: First and second heart sounds are normal; no edema. LUNGS: Respiratory rate normal; clear to auscultation. ABDOMEN: Soft, nontender, liver spleen not palpable, no masses palpable. PSYCH: Answering questions NEUROLOGICAL: Cranial nerves grossly intact; no facial asymmetry, speaking well INVESTIGATIONS, reviewed in the clinical context: White count 10.9 hemoglobin 14.4 Previous testing EEG-showing evidence of encephalopathy White count 11.9 hemoglobin 15.4 potassium 3.3 creatinine 1.09 Potassium 3.3, glucose 204, LDL 145 Computed tomography scan of brain-April 18-no new findings. Repeat computed tomography scan April 21-no focal 2-D echocardiogram-severe concentric LVH, EF 50-55%, COVID 19 PCR negative Admission testing White count 8.5 hemoglobin 14 platelets 210 potassium 3.3 creatinine 0.93 EKG tracing personally reviewed by me-atrial paced rhythm, right bundle-branch block pattern Chest x-ray film personally reviewed by me-cardiomegaly, no infiltrates CT angiogram the head and neck with contrast-no CTA/C a process Computed tomography scan of the brain unremarkable Assessment: -Recurrent TIA with patient presenting with about 2 hours of unable to find words and some double vision that completely resolved. again patient had similar symptoms. Per neurology - right lower quadrantonopia. Subsequently patient became more lethargic KAY could not be done. -Hypertensive urgency -Hyperlipidemia -Permanent pacemaker -Hard of hearing -Metabolic encephalopathy with delirium, multifactorial -Lower GI bleed. Internal hemorrhoids versus diverticular-new diagnosis Plan: Discussed with Dr. Joel from neurology. MRI of the brain cannot be done because of-pacemaker. Cardiology consulted to proceed with a KAY
[2020-04-28] MEDS: VALSARTAN 80 MG TAB PO SCH (20:35)
[2020-04-28] MEDS: ATORVASTATIN 40 MG TAB PO SCH (20:35)
[2020-04-28] MEDS: MELATONIN 3 MG TABLET PO SCH (20:35)
--- NOTE | 2020-04-29 08:23 | P.PN ---
Subjective Progress Note Date: 04/29/20 Patient was seen at bedside and he said he is doing well. Denies of any weakness, numbness or visual disturbance. He is scheduled for KAY today. Objective - Vital Signs Vital signs: Vital Signs Temp 98 F 04/29/20 05:05 Pulse 81 04/29/20 05:05 Resp 18 04/29/20 05:05 BP 163/73 04/29/20 05:05 Pulse Ox 95 04/29/20 05:05 Intake & Output 04/28/20 04/29/20 04/29/20 18:59 06:59 18:59 Weight 79.5 kg Other: Voiding Method Toilet Toilet # Voids 3 1 # Bowel Movements 2 - Exam Neurological examination: Higher mental function: Patient is awake, alert, oriented to self and place. Regarding the year he said it was 2001 but with options he correctly chooses 2019. He seem more responsive today compared to yesterday. He is following simple commands. Patient was able to identify watch correctly and pen. No aphasia or neglect. Cranial nerves the pupils are round equal (about 4 mm bilaterally) and reactive to light. Visual crowder are full to confrontation. Extraocular movement is intact and there is no nystagmus noted. Facial sensation is normal to touch throughout. No facial weakness bilaterally. No dysarthria. Tongue is midline and moved [id number] without any difficulty. Motor: Gait is deferred that. The strength is 5 out of 5 throughout. Sensation is normal to touch throughout. Reflexes as 2 positive throughout except at ankles 1+ bilaterally. The plantar are mute bilaterally. - Labs CBC & Chem 7: 04/26/20 08:07 04/25/20 18:34 Labs: Microbiology - Last 24 Hours (Table) 04/22/20 13:09 Blood Culture - Final Blood No Growth after 144 hours 04/22/20 13:16 Blood Culture - Final Blood No Growth after 144 hours Assessment and Plan Assessment: * Recurrent, crescendo TIAs. 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 Patient has developed superimposed recurrent TIAs. Rule out cardioembolic source. * Patient had 2-D echo performed: Mild tricuspid regurgitation present. There is evidence of pulmonary hypertension. The right ventricular systolic pressure as measured by Doppler is 16.57 mmHg. * Patient at present not considered a candidate for TPA, due to: * 1) rapidly improving symptoms, now with minimal deficits (NIHSS 2). * 2) unclear if abnormalities on CT are subacute in nature, as it would contraindicate TPA, and pose hemorrhagic risks. * CTA head and neck were negative. * Because of his worsening mentation the primary team ordered CT of the head on 04/21/20 which was reported as no acute intracranial hemorrhage or midline shift. There is mild to moderate diffuse cerebral atrophy and moderate to advanced chronic small vessel ischemic change along the right side surgical change old and demonstrated. No change from prior studies. * Lipid profie: Low cholesterol 221, LDL 145, HDL 31 and triglyceride of 227. * Because of recurrent TIAs,/recent CVA, heparin per A. fib protocol was started on 03/18/20. Because of the patient to her recent stroke as well as his recurrent TIAs * I spoke to cardiology team on 04/24/20, and they recommended to the to stop the heparin drip and didn't feel there is a any use of anticoagulation since they do not feel ceferino this is a cardioembolic phenomena. Therefore the heparin drip was stopped. * Continue aspirin 325mg and Plavix 75 mg (added on 04/24/2020 --continue it for 21 days). After 21 days patient to stop by the Plavix (stop 05/15/2020) while to continue on ASA and definitely. Continue Lipitor 40 mg daily. * Cardiology is on board. KAY (04/29/2020): Ejection fraction of 45-50%.Was reported as the left atrium appears to be dilated. The intra-arterial septum appears to be intact without any evidence of shunt. Left atrial appendage appears to be free from any thrombus. * Because there is no left atrial thrombus, we'll continue with a dual antiplatelets as stated above and then to continue aspirin indefinitely. * Cannot get MRI because of pacemaker. * Telemetry monitoring. No atrial fibrillation or flutter is seen during his stay * PT OT speech therapy. * Hemoglobin A1c: 6.9 TSH: 2.6 * Ammonia level is less than 9. * EEG: Background slowing suggestive of mild to moderate encephalopathy. No focal slowing, epileptiform discharge or seizure. * C. diff: Negative There is no further neurological workup needed. Patient needs to follow-up a neurologist as an outpatient in the 1-2 weeks. The plan was discussed with the patient. Chava Maguire M.D. Neuro-hospitalist Time with Patient: Less than 30
[2020-04-29] MEDS: METOPROLOL TARTRATE 25 MG TAB PO SCH (08:34)
[2020-04-29] MEDS: amLODIPine 10 MG TAB PO SCH (08:34)
[2020-04-29] MEDS: PRAZOSIN 1 MG CAP PO SCH (08:35)
[2020-04-29] MEDS: CYANOCOBALAMIN 1,000 MCG/ML 1 ML VIAL IM SCH (08:35)
[2020-04-29] MEDS: VALSARTAN 160 MG TAB PO SCH (08:35)
[2020-04-29] MEDS: HYDROCORTISONE 2.5% RECTAL CREAM 30 GM TUBE RECTAL SCH (08:37)
[2020-04-29] MEDS ORDERED: fentaNYL (PF) 50 MCG/ML 2 ML AMP ONE (09:23)
[2020-04-29] MEDS ORDERED: SODIUM CHLORIDE 0.9% 500 ML 500 ML IV ONE (09:26)
[2020-04-29] MEDS ORDERED: BENZOCAINE SPRAY 1 CAN MUCOUS MEM ONE (09:38)
[2020-04-29] MEDS ORDERED: fentaNYL (PF) 50 MCG/ML 2 ML AMP IV ONE (09:38)
[2020-04-29] MEDS ORDERED: MIDAZOLAM 2 MG/2 ML VIAL IV ONE (09:38)
--- NOTE | 2020-04-29 10:28 | ECHOT ---
TRANSESOPHAGEAL ECHOCARDIOGRAM DATE OF SERVICE: 04/18/2020 PERFORMING PHYSICIAN: Devin Avila MD. PROCEDURE PERFORMED: Transesophageal echocardiogram. INDICATION: This is an 79-year-old gentleman who was admitted to the hospital with a stroke. He was seen by the Neurology service and a transesophageal echocardiogram was required to rule out any cardiac source of embolization. COMPLICATION: None. LEVEL OF SEDATION: Moderate with sedation length of 10 minutes. PROCEDURE DESCRIPTION: After obtaining an informed consent, the patient was brought to the transesophageal echocardiogram room. Pulse oximetry and heart rate monitors were attached to the patient. Subsequently, the transesophageal echocardiogram probe was advanced to the mid esophageal where 2D echocardiogram images as well as color Doppler images as well as continuous and pulse-wave Doppler images were obtained from various angles. Particular attention was paid to the interatrial septum. Subsequently, the transesophageal echocardiogram was advanced to the stomach, then it was pulled back to the esophageal. We did interrogate the septum using color-flow Doppler as well as 2D echocardiogram as well as contrast study. The procedure was completed without any complication. FINDINGS: The left ventricular dimension appeared to be within normal limits. The left ventricular systolic function appeared to be mildly impaired with EF between 45%-50%. The right ventricle appeared to be mildly dilated with normal function. The left atrium appeared to be dilated. The interatrial septum appeared to be intact without any evidence of shunt. The left atrial appendage appeared to be free from any thrombus. The aortic valve appeared to be trileaflet valve without stenosis and without with mild insufficiency. The mitral valve seems to be seems to be thickened with evidence of moderate mitral regurgitation. There was moderate tricuspid regurgitation seen. The pulmonary capillary study. The pulmonary artery systolic pressure was not calculated. CONCLUSION: 1. No evidence of cardiac source of embolization. 2. Intact interatrial septum without any evidence of shunt. 3. Normal left atrial appendage without any thrombus. 4. Mild atherosclerotic plaque in the descending aorta. 5. Mildly impaired left ventricular systolic function with an ejection fraction of 45%- 50%.. 6. Aortic sclerosis without stenosis with mild insufficiency. 7. Thickened mitral valve leaflets with moderate MR. 8. Moderate tricuspid regurgitation. 9. No evidence of pericardial effusion. 10.Dilated aortic root. MMODL / IJN: [id number] /
[2020-04-29 11:11] VITALS: BP 137/72; PULSE 61; RESP 16; TEMP 98.2
[2020-04-29] MEDS: ASPIRIN 81 MG PO SCH (11:25)
[2020-04-29] MEDS: CLOPIDOGREL 75 MG TAB PO SCH (11:25)
--- NOTE | 2020-04-29 13:20 | P.DS ---
Providers Date of admission: 04/18/20 11:45 Expected date of discharge: 04/29/20 Attending physician: Ok Amaya Consults: 04/17/20 18:55 Consult Physician Routine Consulting Provider: David Ramos Consult Reason/Comments: tia Do you want consulting provider notified?: Yes 04/18/20 13:47 Consult Physician Routine Consulting Provider: Devin Avila Consult Reason/Comments: KAY Do you want consulting provider notified?: Yes 04/25/20 11:16 Consult Physician Routine Consulting Provider: Estela Valenzuela Consult Reason/Comments: Bright red blood in stool Do you want consulting provider notified?: Yes 04/28/20 11:08 Consult Physician Routine Consulting Provider: Ita Boyce Consult Reason/Comments: KAY Do you want consulting provider notified?: Yes Primary care physician: Rico Banks [facility] Course: Chief Complaint: Loss of speech and double vision History of presenting complaint: This is a pleasant 79-year-old patient of Dr. Rico Robb. Chronic stable medical conditions include hypertension, hyperlipidemia, hard of hearing, permanent pacemaker. Yesterday at 4 PM he was sitting in his backyard with his dog near the pond. There was squirrel running around. He suddenly noticed that he was not able to speak nor describe a squirrel. His son happened to be didn't help him to find the word for him. Patient went inside the house He also noticed some double vision. The symptoms lasted for about 1-2 hours. Then completely resolved. 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 Was sent into the ER. Patient had no other focal symptoms. No change in , swallowing or any limb weakness. Blood pressure was running high in the ER. Hospital course: Subsequently the following day patient again trouble with his speech repeat computed tomography scan was negative. Per neurology patient is found to have Homonymous right lower quadrant quadrantanopsia. Subsequently patient became confused hence KAY was not done. Patient 2 days ago started on seroquel 50 mg the morning.. Then changed to 12.5 mg at night. Then discontinued. Patient felt to 1 episode of rectal hemorrhoids bleeding. Seen by GI. Not any further intervention. Computed tomography scan of the brain, CT angiogram both unremarkable. Because of her pacemaker cannot have an MRI. Patient to take Plavix for 3 weeks. Then continue only with aspirin. Follow-up with neurology outpatient. Today-KAY was done. No shunt, no thrombus noted. Patient is stable. at the bedside. Discussed with the . No neuro deficits Discussion and discharge planning more than 35 minutes Consultation: Dr. Maguire from neurology Dr. Zuluaga from [facility] Physical examination: VITAL SIGNS: 98.2, 61, 16, 131/72, 100% on 2 L GENERAL: Laying in bed, awake comfortable EYES: Pupils equal. Conjunctiva normal. HEENT: External appearance of nose and ears normal, oral cavity grossly normal. NECK: JVD not raised; masses not palpable. HEART: First and second heart sounds are normal; no edema. LUNGS: Respiratory rate normal; clear to auscultation. ABDOMEN: Soft, nontender, liver spleen not palpable, no masses palpable. PSYCH: Answering questions NEUROLOGICAL: Cranial nerves grossly intact; no facial asymmetry, speaking well INVESTIGATIONS, reviewed in the clinical context: White count 10.9 hemoglobin 14.4 KAY-unremarkable. No thrombus Previous testing EEG-showing evidence of encephalopathy White count 11.9 hemoglobin 15.4 potassium 3.3 creatinine 1.09 Potassium 3.3, glucose 204, LDL 145 Computed tomography scan of brain-April 18-no new findings. Repeat computed tomography scan April 21-no focal 2-D echocardiogram-severe concentric LVH, EF 50-55%, COVID 19 PCR negative Admission testing White count 8.5 hemoglobin 14 platelets 210 potassium 3.3 creatinine 0.93 EKG tracing personally reviewed by me-atrial paced rhythm, right bundle-branch block pattern Chest x-ray film personally reviewed by me-cardiomegaly, no infiltrates CT angiogram the head and neck with contrast-no CTA/C a process Computed tomography scan of the brain unremarkable Assessment: -Recurrent TIA -Hypertensive urgency -Hyperlipidemia -Permanent pacemaker -Hard of hearing -Metabolic encephalopathy with delirium, multifactorial-improved -Lower GI bleed. Internal hemorrhoids Disposition: [facility] Patient Condition at Discharge: Stable Plan - Discharge Summary Discharge Rx Participant: No New Discharge Prescriptions: New Aspirin 81 mg PO DAILY chew Atorvastatin [Lipitor] 40 mg PO HS tab Metoprolol Tartrate [Lopressor] 25 mg PO TID tab Melatonin 3 mg PO HS tablet Prazosin [Minipress] 2 mg PO TID cap Clopidogrel [Plavix] 75 mg PO DAILY tab Hydrocortisone Pr Cream [Proctosol-Hc 2.5%] 1 applic RECTAL BID applic Acetaminophen Tab [Tylenol] 650 mg PO Q6HR PRN tab PRN Reason: Mild Pain Or Fever > 100.5 Cyanocobalamin [Vitamin B-12] 500 mcg PO DAILY #1 tablet Continue amLODIPine [Norvasc] 10 mg PO DAILY Valsartan [Diovan] 160 mg PO DAILY Valsartan 80 mg PO HS Discontinued Metoprolol Succinate [Toprol XL] 25 mg PO DAILY Plant Stanol Poornima [Cholest Off] 450 mg PO BID Discharge Medication List Valsartan 80 mg PO HS 04/17/20 [History] Valsartan [Diovan] 160 mg PO DAILY 04/17/20 [History] amLODIPine [Norvasc] 10 mg PO DAILY 04/17/20 [History] Acetaminophen Tab [Tylenol] 650 mg PO Q6HR PRN tab 04/29/20 [Rx] Aspirin 81 mg PO DAILY chew 04/29/20 [Rx] Atorvastatin [Lipitor] 40 mg PO HS tab 04/29/20 [Rx] Clopidogrel [Plavix] 75 mg PO DAILY tab 04/29/20 [Rx] Cyanocobalamin [Vitamin B-12] 500 mcg PO DAILY #1 tablet 04/29/20 [Rx] Hydrocortisone Pr Cream [Proctosol-Hc 2.5%] 1 applic RECTAL BID applic 04/29/20 [Rx] Melatonin 3 mg PO HS tablet 04/29/20 [Rx] Metoprolol Tartrate [Lopressor] 25 mg PO TID tab 04/29/20 [Rx] Prazosin [Minipress] 2 mg PO TID cap 04/29/20 [Rx] Follow up Appointment(s)/Referral(s): Rico Banks DO [Primary Care Provider] - 1-2 days Suellen Torres MD [Medical Doctor] - 10 Days [facility] Visiting Nurse, [NON-STAFF] - 1-2 Days
== END 2020-04-29 16:09 | DRG 69 ==
LOC: EC 15:52 → 3NCARDOBS 18:55 → OBSVTOIN 04-18 11:45 → 3SCARD 04-18 13:27 → 6NMEDSUR 04-27 04:53
PROVIDERS: ADMIT Hospitalist; ATTEND Hospitalist
PROC: B246ZZ4 Ultrasonography of Right and Left Heart, Transesophageal (ICD-10-PCS; principal; 2020-04-29 09:35)
DX: G45.9 Transient cerebral ischemic attack, unspecified (principal); G92 Toxic encephalopathy; J69.0 Pneumonitis due to inhalation of food and vomit; F05 Delirium due to known physiological condition; H53.461 Homonymous bilateral field defects, right side; E86.0 Dehydration; I11.9 Hypertensive heart disease without heart failure; E11.9 Type 2 diabetes mellitus without complications; I16.0 Hypertensive urgency; Z20.828 Contact with and (suspected) exposure to other viral communicable diseases; E78.5 Hyperlipidemia, unspecified; I45.10 Unspecified right bundle-branch block; I25.10 Atherosclerotic heart disease of native coronary artery without angina pectoris; R40.2362 Coma scale, best motor response, obeys commands, at arrival to emergency department; R40.2142 Coma scale, eyes open, spontaneous, at arrival to emergency department; R40.2252 Coma scale, best verbal response, oriented, at arrival to emergency department; E87.6 Hypokalemia; E04.1 Nontoxic single thyroid nodule; T42.4X5A Adverse effect of benzodiazepines, initial encounter; I08.3 Combined rheumatic disorders of mitral, aortic and tricuspid valves; F41.9 Anxiety disorder, unspecified; K64.8 Other hemorrhoids; K59.00 Constipation, unspecified; H91.90 Unspecified hearing loss, unspecified ear; K21.9 Gastro-esophageal reflux disease without esophagitis; R32 Unspecified urinary incontinence; Z79.899 Other long term (current) drug therapy; Z86.73 Personal history of transient ischemic attack (TIA), and cerebral infarction without residual deficits; Z87.891 Personal history of nicotine dependence; Z95.0 Presence of cardiac pacemaker
CPT/HCPCS: 36415; 70450; 70496; 70498; 71045; 71046; 80048; 80053; 80061; 81001; 82140; 82607; 82746; 83036; 83735; 84132; 84443; 84484; 85025; 85027; 85610; 85730; 87040; 87324; 93005; 93306; 93312; 93325; 94760; 95819; 96360; 99291

== ENCOUNTER → 2020-11-21 | Outpatient (CLI) | payer MEDICARE ==
--- NOTE | 2020-11-21 15:01 | CT ---
EXAMINATION TYPE: CT brain wo con DATE OF EXAM: 11/21/2020 COMPARISON: 04/21/2020 HISTORY: episode of memory loss CT DLP: 1041.[address] of the brain was performed. Persistent right-sided temporal or mastoid surgical change with external device having lead into the petrous apex, streak artifact noted makes evaluation slightly suboptimal similar to prior studies The ventricles, basal cisterns and sulci overlying the cerebral convexities demonstrate moderate enla rgement. High right frontal encephalomalacia. There is no evidence for intracranial hemorrhage or sulcal effacement. There is decreased attenuation about the periventricular white matter and deep white matter of both c erebral hemispheres, compatible with chronic small vessel ischemia. Differential diagnosis does inclu de demyelination. No mass effects are seen.No midline shift. Osseous calvarium is intact. If symptoms persist consider MRI. IMPRESSION: 1. Age related atrophic and chronic small vessel ischemic change without acute intracranial process s een at this time.
== END | disposition home or self-care (01) ==
LOC: RADCTMAIN 14:09
PROVIDERS: ATTEND Psychiatry & Neurology Neurology
DX: I67.82 Cerebral ischemia (principal)
CPT/HCPCS: 70450